=== PATIENT | female | born 1935 | race Caucasian/White ===

== ENCOUNTER → 2017-01-27 | Outpatient (CLI) | payer MEDICARE ==
[2016-04-26 14:55] VITALS: BP 145/52
[~2017-01-27] MED LIST: ALEN70TA5 PO; ASPI-482 PO; AZIT1PAC PO; CARV12.52 PO; ESCI20TA PO; ESCI5TAB24 PO; FURO-69 PO; LEVO75TA5 PO; LISI10TA2 PO; METH4TAB2 PO; PANT40TA5 PO; POTA10CA PO; POTA10TA10 PO; SIMV10TA3 PO; SIMV20TA3 PO; TIOT4MIS5 IH; VENTOLIN HFA18 GM IH
--- NOTE | 2017-01-27 13:10 | CARD ---
APPROVED REPORT EXAM: Two-dimensional and M-mode echocardiogram with Doppler and color Doppler. Other Information Quality : Good Rhythm : NSR INDICATION Chest Pain Chest pain RISK FACTORS Hypertension 2D DIMENSIONS RVDd2.6 (2.9-3.5cm)Left Atrium(2D)3.2 (1.6-4.0cm) IVSd0.9 (0.7-1.1cm)Aortic Root(2D)2.9 (2.0-3.7cm) LVDd4.6 (3.9-5.9cm)LVOT Diameter2.2 (1.8-2.4cm) PWd0.8 (0.7-1.1cm)LVDs3.0 (2.5-4.0cm) FS (%) 35.6 %SV64.6 ml LVEF(%)65.1 (>50%) Aortic Valve AoV Peak Dangelo.126.7cm/sAoV VTI33.7cm AO Peak GR.6.4mmHgLVOT Peak Dangelo.76.5cm/s AO Mean GR.4mmHgAVA (VMAX)2.20cm2 AI P 1/2 [id number] Mitral Valve MV E Nfzncfpx45.6cm/sMV E Peak Gr.2mmHg MV DECEL [id number] A Eprvexgd02.9cm/s MV E Mean Gr.1mmHgE/A Ratio0.8 MV A [id number] Pulmonary Valve PV Peak Wcklyjpb48.4cm/s Tricuspid Valve TR P. Ihvdtzuh732ox/sTR Peak Gr.30mmHg Pulmonary Vein S1 Aamyvlhu79.7cm/sD2 Ryzzjsjq89.8cm/s PVa [id number] LEFT VENTRICLE The left ventricle is normal size. There is normal left ventricular wall thickness. The left ventricu lar systolic function is normal and the ejection fraction is within normal range. The Ejection Fracti on is 60-65%. There is normal LV segmental wall motion. Transmitral Doppler flow pattern is Grade II- pseudonormal filling dynamics. RIGHT VENTRICLE The right ventricle is normal size. There is normal right ventricular wall thickness. The right ventr icular systolic function is normal. ATRIA The left atrium size is normal. The right atrium size is normal. The interatrial septum is intact wit h no evidence for an atrial septal defect or patent foramen ovale as noted on 2-D or Doppler imaging. AORTIC VALVE The aortic valve is mildly sclerotic. Doppler and Color Flow revealed mild aortic regurgitation. Ther e is no significant aortic valvular stenosis. MITRAL VALVE The mitral valve leaflets are thickened. There is no evidence of mitral valve prolapse. There is no m itral valve stenosis. Doppler and Color Flow revealed mild mitral regurgitation. TRICUSPID VALVE Doppler and Color Flow revealed mild tricuspid regurgitation. The pulmonary artery systolic pressure is estimated at 42 mmHg. There is mild pulmonary hypertension. PULMONIC VALVE Doppler and Color Flow revealed trace pulmonic valvular regurgitation. There is no pulmonic valvular stenosis. GREAT VESSELS The aortic root is normal in size. The ascending aorta is normal in size. The IVC is normal in size a nd collapses >50% with inspiration. PERICARDIAL EFFUSION There is no evidence of significant pericardial effusion. Critical Notification Critical Value: No <Conclusion> The left ventricular systolic function is normal and the ejection fraction is within normal range. Th e Ejection Fraction is 60-65%. There is normal LV segmental wall motion. Transmitral Doppler flow pattern is Grade II-pseudonormal filling dynamics. Doppler and Color Flow revealed mild aortic regurgitation. Doppler and Color Flow revealed mild tricuspid regurgitation. The pulmonary artery systolic pressure is estimated at 42 mmHg. There is mild pulmonary hypertension.
== END | disposition home or self-care (01) ==
LOC: ECHO 10:32
PROVIDERS: ATTEND Internal Medicine Cardiovascular Disease
DX: I25.10 Atherosclerotic heart disease of native coronary artery without angina pectoris (principal); R07.9 Chest pain, unspecified; I27.2 Other secondary pulmonary hypertension; I35.1 Nonrheumatic aortic (valve) insufficiency; I07.1 Rheumatic tricuspid insufficiency
CPT/HCPCS: 93306

== ENCOUNTER → 2017-04-03 | Outpatient (CLI) | payer BC ==
[2016-04-26 14:55] VITALS: BP 145/52
[~2017-04-03] MED LIST changes: -POTA10CA PO; -POTA10TA10 PO; +POTA10TA12 PO; +POTASSIUM CHLO10 MEQ PO
--- NOTE | 2017-04-03 14:15 | KCIC ---
Examination: CT chest without contrast HISTORY: History of follow-up lung nodule COMPARISON: 05/08/2016 TECHNIQUE: Axial CT images of the chest were performed without contrast. Coronal and sagittal reformats were performed. Exposure: One or more of the following individualized dose reduction techniques were utilized for this examination: 1. Automated exposure control 2. Adjustment of the mA and/or kV according to patient size 3. Use of iterative reconstruction technique FINDINGS: The central airways are patent. Diffuse coronary artery calcifications. The heart size grossly appears unremarkable. No evidence of pericardial effusion. Severe emphysematous changes identified in the lungs. 5 mm pulmonary nodule identified in the right lobe of the lung similar to prior exam. The visualized noncontrasted liver, spleen, adrenals grossly appears unremarkable. Cholecystectomy clips are identified. Mild degenerative changes thoracic spine. IMPRESSION: 1. 5 mm pulmonary nodule identified in the right middle lobe of the lung grossly similar to prior exam. 2. Severe emphysematous changes bilateral lungs. Electronically signed by: Fidel Allen MD (04/03/2017 2:12 PM)
== END | disposition home or self-care (01) ==
LOC: KCIC CT 08:12
PROVIDERS: ATTEND Internal Medicine Pulmonary Disease
DX: R91.1 Solitary pulmonary nodule (principal)
CPT/HCPCS: 71250

== ENCOUNTER → 2018-04-02 | Outpatient (CLI) | payer BC | END | disposition home or self-care (01) | LOC: CT 07:47 | DX: I25.10 Atherosclerotic heart disease of native coronary artery without angina pectoris (principal); I70.0 Atherosclerosis of aorta; R91.1 Solitary pulmonary nodule | CPT/HCPCS: 71250 ==

== ENCOUNTER 2018-05-20 18:02 | Inpatient (IN) | payer BC ==
[2018-05-20] MEDS ORDERED: ALBUTEROL SULFATE 2.5 MG/3 ML NEBU. NEB (18:45)
[2018-05-20] MEDS ORDERED: NON FORMULARY ITEM (Albuterol Sulfate (Ventolin Hfa Inhaler) 2 PUFF) IH (18:45)
[2018-05-20] MEDS ORDERED: POLYETHYLENE GLYCOL 3350 17 GM PACKET. PO (18:45)
[2018-05-20] MEDS: IPRATRPIUM/ALBUTEROL 0.5/2.5MG 3 ML NEBU. NEB (19:45)
[2018-05-20] MEDS ORDERED: DOCUSATE SODIUM 100 MG CAPSULE. PO (20:15)
[2018-05-20] MEDS ORDERED: NON FORMULARY ITEM (Tiotropium Bromide (Spiriva Respimat) 2.5 MCG) IH (21:00)
[2018-05-20] MEDS: SIMVASTATIN 20 MG TABLET PO (21:08)
[2018-05-20] MEDS: CARVEDILOL 12.5 MG TABLET. PO (21:09)
[2018-05-20] MEDS: oxyCODONE/APAP 5/325 1 TAB TABLET PO (23:52)
[2018-05-20] MEDS: ZOLPIDEM 5 MG TABLET. PO (23:52)
[2018-05-21] MEDS: PANTOPRAZOLE 40 MG TABLET.DR. PO (06:40)
[2018-05-21] MEDS: LEVOTHYROXINE 75 MCG TABLET PO (06:41)
[2018-05-21] MEDS: IPRATRPIUM/ALBUTEROL 0.5/2.5MG 3 ML NEBU. NEB ×4 (06:52→18:55)
[2018-05-21] MEDS: POLYETHYLENE GLYCOL 3350 17 GM PACKET. PO (10:19)
[2018-05-21] MEDS: FUROSEMIDE 20 MG TABLET PO (10:20)
[2018-05-21] MEDS: POTASSIUM CHLORIDE 10 MEQ TABLET.ER. PO (10:20)
[2018-05-21] MEDS: DOCUSATE SODIUM 100 MG CAPSULE. PO (10:20)
[2018-05-21] MEDS: CARVEDILOL 12.5 MG TABLET. PO ×2 (10:21→16:46)
[2018-05-21] MEDS: ASPIRIN ENTERIC COATED 81 MG TABLET.DR. PO (10:21)
[2018-05-21] MEDS: CITALOPRAM 20 MG TABLET. PO (10:21)
[2018-05-21] MEDS: LISINOPRIL 10 MG TABLET PO (10:22)
[2018-05-21] MEDS: oxyCODONE/APAP 5/325 1 TAB TABLET PO (12:00)
[2018-05-21] MEDS: MORPHINE SULFATE 2 MG/ML DISP.SYRIN. IV (12:59)
[2018-05-21] MEDS: ENOXAPARIN 40 MG/0.4 ML SYRINGE. SQ (16:47)
[2018-05-21] MEDS: SIMVASTATIN 20 MG TABLET PO (20:51)
[2018-05-22] MEDS: ACETAMINOPHEN 325 MG TABLET. PO ×3 (00:14→20:39)
[2018-05-22 05:04] LABS: ADD MAN DIFF? NO
[2018-05-22 05:11] LABS: BASO # 0.1 x10^3/uL (0.0-0.2); BASO % 1 % (0-3); EOS # 0.4 x10^3/uL (0.0-0.7); EOS % 5 % (0-3); HEMATOCRIT 31.7 % (36.0-47.0); HEMOGLOBIN 10.6 g/dL (12.0-15.5); LYMPH # 1.8 x10^3/uL (1.0-4.8); LYMPH % 21 % (24-48); MEAN CORPUSCULAR HEMOGLOBIN 31 pg (25-35); MEAN CORPUSCULAR HGB CONC 33 g/dL (31-37); MEAN CORPUSCULAR VOLUME 93 fL (79-100); MONO # 0.8 x10^3/uL (0.0-1.1); MONO % 9 % (0-9); NEUT # 5.6 x10^3uL (1.8-7.7); NEUT % 65 % (31-73); PLATELET COUNT 127 x10^3/uL (140-400); RED BLOOD COUNT 3.41 x10^6/uL (3.50-5.40); WHITE BLOOD COUNT 8.7 x10^3/uL (4.0-11.0)
[2018-05-22 05:21] LABS: ANION GAP 5 (6-14); BLOOD UREA NITROGEN 18 mg/dL (7-20); CALCIUM 8.5 mg/dL (8.5-10.1); CARBON DIOXIDE 29 mmol/L (21-32); CHLORIDE 102 mmol/L (98-107); CREATININE 1.5 mg/dL (0.6-1.0); GFR 33.2; GLUCOSE 81 mg/dL (70-99); POTASSIUM 3.9 mmol/L (3.5-5.1); SODIUM 136 mmol/L (136-145)
[2018-05-22] MEDS: LEVOTHYROXINE 75 MCG TABLET PO (05:57)
[2018-05-22] MEDS: PANTOPRAZOLE 40 MG TABLET.DR. PO (05:57)
[2018-05-22] MEDS: IPRATRPIUM/ALBUTEROL 0.5/2.5MG 3 ML NEBU. NEB ×4 (07:15→19:54)
[2018-05-22] MEDS: POTASSIUM CHLORIDE 10 MEQ TABLET.ER. PO (08:50)
[2018-05-22] MEDS: DOCUSATE SODIUM 100 MG CAPSULE. PO (08:50)
[2018-05-22] MEDS: ASPIRIN ENTERIC COATED 81 MG TABLET.DR. PO (08:50)
[2018-05-22] MEDS: CITALOPRAM 20 MG TABLET. PO (08:51)
[2018-05-22] MEDS: CARVEDILOL 12.5 MG TABLET. PO ×2 (08:52→17:00)
[2018-05-22] MEDS: FUROSEMIDE 20 MG TABLET PO (08:52)
[2018-05-22] MEDS: LISINOPRIL 10 MG TABLET PO (08:56)
[2018-05-22] MEDS: POLYETHYLENE GLYCOL 3350 17 GM PACKET. PO (08:56)
[2018-05-22] MEDS: ENOXAPARIN 30 MG/0.3 ML SYRINGE. SQ (17:56)
[2018-05-22] MEDS: IV NORMAL SALINE 1000ML BAG 1,000 ML IV (20:17)
[2018-05-22] MEDS: SIMVASTATIN 20 MG TABLET PO (20:39)
[2018-05-22] MEDS: ZOLPIDEM 5 MG TABLET. PO (20:39)
[2018-05-23] MEDS: LABETALOL 20 MG/4 ML DISP.SYRIN. IVP (03:53)
[2018-05-23] MEDS: ACETAMINOPHEN 325 MG TABLET. PO ×2 (03:53→08:34)
[2018-05-23] MEDS: PANTOPRAZOLE 40 MG TABLET.DR. PO (06:19)
[2018-05-23] MEDS: LEVOTHYROXINE 75 MCG TABLET PO (06:19)
[2018-05-23] MEDS: IPRATRPIUM/ALBUTEROL 0.5/2.5MG 3 ML NEBU. NEB ×4 (07:18→20:24)
[2018-05-23] MEDS: CARVEDILOL 12.5 MG TABLET. PO ×3 (08:00→17:19)
[2018-05-23] MEDS: POLYETHYLENE GLYCOL 3350 17 GM PACKET. PO (08:34)
[2018-05-23] MEDS: POTASSIUM CHLORIDE 10 MEQ TABLET.ER. PO (08:34)
[2018-05-23] MEDS: CITALOPRAM 20 MG TABLET. PO (08:34)
[2018-05-23] MEDS: DOCUSATE SODIUM 100 MG CAPSULE. PO (08:35)
[2018-05-23] MEDS: ASPIRIN ENTERIC COATED 81 MG TABLET.DR. PO (08:35)
[2018-05-23] MEDS: FUROSEMIDE 20 MG TABLET PO (08:35)
[2018-05-23] MEDS: LISINOPRIL 10 MG TABLET PO ×2 (08:36→09:00)
[2018-05-23] MEDS: amLODIPine BESYLATE 5 MG TABLET PO ×2 (09:30→10:00)
[2018-05-23] MEDS: ONDANSETRON PF 4 MG/2 ML VIAL. IV (11:00)
[2018-05-23] MEDS: MORPHINE SULFATE 2 MG/ML DISP.SYRIN. IV (11:00)
[2018-05-23] MEDS: IV NORMAL SALINE 1000ML BAG 1,000 ML IV (12:33)
[2018-05-23] MEDS: ENOXAPARIN 30 MG/0.3 ML SYRINGE. SQ (16:33)
[2018-05-23] MEDS: SIMVASTATIN 20 MG TABLET PO (22:29)
[2018-05-23] MEDS: ZOLPIDEM 5 MG TABLET. PO (22:29)
[2018-05-23] MEDS: oxyCODONE/APAP 5/325 1 TAB TABLET PO (22:30)
[2018-05-24 03:54] LABS: ANION GAP 1 (6-14); BLOOD UREA NITROGEN 15 mg/dL (7-20); CALCIUM 7.6 mg/dL (8.5-10.1); CARBON DIOXIDE 33 mmol/L (21-32); CHLORIDE 101 mmol/L (98-107); CREATININE 1.1 mg/dL (0.6-1.0); GFR 47.6; GLUCOSE 79 mg/dL (70-99); POTASSIUM 3.7 mmol/L (3.5-5.1); SODIUM 135 mmol/L (136-145)
[2018-05-24] MEDS: PANTOPRAZOLE 40 MG TABLET.DR. PO (06:15)
[2018-05-24] MEDS: ACETAMINOPHEN 325 MG TABLET. PO ×2 (06:16→22:57)
[2018-05-24] MEDS: LEVOTHYROXINE 75 MCG TABLET PO (06:16)
[2018-05-24] MEDS: IPRATRPIUM/ALBUTEROL 0.5/2.5MG 3 ML NEBU. NEB ×4 (07:09→19:03)
[2018-05-24] MEDS: CITALOPRAM 20 MG TABLET. PO (08:47)
[2018-05-24] MEDS: amLODIPine BESYLATE 5 MG TABLET PO (08:48)
[2018-05-24] MEDS: DOCUSATE SODIUM 100 MG CAPSULE. PO (08:48)
[2018-05-24] MEDS: POTASSIUM CHLORIDE 10 MEQ TABLET.ER. PO (08:48)
[2018-05-24] MEDS: ASPIRIN ENTERIC COATED 81 MG TABLET.DR. PO (08:48)
[2018-05-24] MEDS: POLYETHYLENE GLYCOL 3350 17 GM PACKET. PO (08:49)
[2018-05-24] MEDS: LISINOPRIL 10 MG TABLET PO (08:49)
[2018-05-24] MEDS: CARVEDILOL 12.5 MG TABLET. PO ×2 (08:50→17:00)
[2018-05-24] MEDS: FUROSEMIDE 20 MG TABLET PO (08:55)
[2018-05-24] MEDS: ENOXAPARIN 30 MG/0.3 ML SYRINGE. SQ (17:15)
[2018-05-24] MEDS: SIMVASTATIN 20 MG TABLET PO (20:21)
[2018-05-24] MEDS: diphenhydrAMINE HCL 25 MG CAPSULE PO (22:57)
[2018-05-25] MEDS: PANTOPRAZOLE 40 MG TABLET.DR. PO (06:43)
[2018-05-25] MEDS: LEVOTHYROXINE 75 MCG TABLET PO (06:43)
[2018-05-25] MEDS: IPRATRPIUM/ALBUTEROL 0.5/2.5MG 3 ML NEBU. NEB (07:42)
[2018-05-25] MEDS: DOCUSATE SODIUM 100 MG CAPSULE. PO (08:43)
[2018-05-25] MEDS: ASPIRIN ENTERIC COATED 81 MG TABLET.DR. PO (08:43)
[2018-05-25] MEDS: CITALOPRAM 20 MG TABLET. PO (08:43)
[2018-05-25] MEDS: POTASSIUM CHLORIDE 10 MEQ TABLET.ER. PO (08:43)
[2018-05-25] MEDS: POLYETHYLENE GLYCOL 3350 17 GM PACKET. PO (08:43)
[2018-05-25] MEDS: LISINOPRIL 10 MG TABLET PO (08:44)
[2018-05-25] MEDS: amLODIPine BESYLATE 5 MG TABLET PO (08:44)
[2018-05-25] MEDS: FUROSEMIDE 20 MG TABLET PO (08:44)
[2018-05-25] MEDS: CARVEDILOL 12.5 MG TABLET. PO (08:44)
== END 2018-05-25 11:00 | DRG 562 ==
LOC: 4 NORTH 18:02
DX: S52.502A Unspecified fracture of the lower end of left radius, initial encounter for closed fracture (principal); J96.00 Acute respiratory failure, unspecified whether with hypoxia or hypercapnia; S32.9XXA Fracture of unspecified parts of lumbosacral spine and pelvis, initial encounter for closed fracture; N17.9 Acute kidney failure, unspecified; I25.10 Atherosclerotic heart disease of native coronary artery without angina pectoris; I11.0 Hypertensive heart disease with heart failure; I50.9 Heart failure, unspecified; E78.5 Hyperlipidemia, unspecified; J44.9 Chronic obstructive pulmonary disease, unspecified; F32.9 Major depressive disorder, single episode, unspecified; Z96.649 Presence of unspecified artificial hip joint; K21.9 Gastro-esophageal reflux disease without esophagitis; F41.9 Anxiety disorder, unspecified; G47.00 Insomnia, unspecified; W01.0XXA Fall on same level from slipping, tripping and stumbling without subsequent striking against object, initial encounter; E03.9 Hypothyroidism, unspecified; G62.9 Polyneuropathy, unspecified; M17.0 Bilateral primary osteoarthritis of knee; M50.30 Other cervical disc degeneration, unspecified cervical region; M48.02 Spinal stenosis, cervical region; M47.812 Spondylosis without myelopathy or radiculopathy, cervical region; Z90.49 Acquired absence of other specified parts of digestive tract; Z88.2 Allergy status to sulfonamides; Z79.02 Long term (current) use of antithrombotics/antiplatelets; Y99.8 Other external cause status; Y93.89 Activity, other specified; Y92.098 Other place in other non-institutional residence as the place of occurrence of the external cause; Z86.73 Personal history of transient ischemic attack (TIA), and cerebral infarction without residual deficits; Z79.899 Other long term (current) drug therapy; Z86.19 Personal history of other infectious and parasitic diseases
CPT/HCPCS: 36415; 80048; 82306; 85025; 94640; 94760; 97110-GP; 97116-GP; 97162-GP; 97166-GO; 97530-GO; 97535-GO; J1650; J2270; J2405; J3490; J7030; J7620; Q0163

== ENCOUNTER 2018-12-04 19:23 | Inpatient (IN) | payer BC ==
[~2018-12-04] VITALS: Ht 160 cm; Wt 60.4 kg
[~2018-12-04 19:23] MED LIST changes: -ALEN70TA5 PO; +ALEN70TA6 PO; +AMLO5TAB10 PO; +ASPI325T11 PO; +CARV12.511 PO; -CARV12.52 PO; +CLOP75TA PO; +DOXY100T PO; -ESCI20TA PO; -ESCI5TAB24 PO; +ESCITALOPRAM OX20 MG PO; +ESCITALOPRAM OXA5 MG PO; +IPRA3AMP29 NEB; +LEVO88TA4 PO; +OXYC1TAB7 PO; -POTASSIUM CHLO10 MEQ PO; +RANI300T PO
[2018-12-04] MEDS ORDERED: fentaNYL PF VIAL 100 MCG/2 ML VIAL IV ONE (20:45)
[2018-12-04 20:49] LABS: BILIRUBIN,URINE NEGATIVE (NEG); CLARITY,URINE CLEAR; COLOR,URINE YELLOW; NITRITE,URINE NEGATIVE (NEG); PROTEIN,URINE NEGATIVE (NEG-TRACE); UROBILINOGEN,URINE 0.2 mg/dL (0.2 mg/dL)
[2018-12-04 21:08] LABS: BACTERIA,URINE MODERATE /HPF (0-FEW); HYALINE CASTS, URINE FEW /HPF; SQUAMOUS EPITHELIAL CELL,UR MOD /LPF
[2018-12-04] MEDS ORDERED: MORPHINE SULFATE 10 MG/ML VIAL. IV ONE (22:30)
--- NOTE | 2018-12-04 22:32 | RAD ---
CT LUMBAR SPINE WO CONTRAST Indication: Pain after a fall Exposure: One or more of the following individualized dose reduction techniques were utilized for this examination: 1. Automated exposure control 2. Adjustment of the mA and/or kV according to patient size 3. Use of iterative reconstruction technique. Comparison: None are available. Contrast: None Visualized lung bases demonstrates severe emphysematous changes. The visualized aorta is calcified and ectatic. There is a mild superior endplate compression fracture of L1, appearance is compatible with acute etiology. There is posterior retropulsion of the posterosuperior corner of L1, resulting in mild spinal canal impingement particularly on the left. No other acute fracture is seen. There is degenerative spondylosis with disc bulging and facet joint degenerative change and ligamentum flavum hypertrophy, greatest at L4-L5 where there is moderate spinal stenosis. There is also neural foraminal narrowing. Degenerative changes at the sacroiliac joints. There is patchy lucency and sclerosis at the right and left sacral ala suspicious for stress fractures. IMPRESSION: 1. Acute appearing superior endplate compression fracture of L1. Mild retropulsion results in mild spinal canal narrowing. 2. Patchy sclerosis and lucency of the right and left sacral ala, suspicious for stress fractures. 3. Degenerative spondylosis with stenosis greatest at L4-L5. Electronically signed by: Juno Swartz MD (12/04/2018 10:27 PM) [facility]
--- NOTE | 2018-12-05 00:51 | PHYS DOC ---
Past Medical History Past Medical History: CHF, COPD, High Cholesterol, Hypertension Past Surgical History: Appendectomy, Cholecystectomy, Tonsillectomy Additional Past Surgical Histo: W/ STENT PLACEMENT, STENT IN LEG,ORIF R FEMUR; L wrist Alcohol Use: Rarely Drug Use: None Adult General Chief Complaint Chief Complaint: MECHANICAL FALL HPI HPI Patient is a 83 year old female with history of hypertension, high cholesterol , COPD, on oxygen 2 L chronically, who presents to the ED today complaining of 7 out of 10 constant bilateral low back pain that began a couple minutes prior to coming to the ED. Patient states she believes she tripped on her oxygen tubing and fell landing on her buttocks. Denies any loss of consciousness. Denies any chance she hit her head on the ground. Denies any neck pain. She states most of her pain is on Certain movements. Patient denies any pain radiating to bilateral lower extremities. Review of Systems Review of Systems Constitutional: Denies fever or chills [] Eyes: Denies change in visual acuity, redness, or eye pain [] HENT: Denies nasal congestion or sore throat [] Respiratory: Denies cough or shortness of breath [] Cardiovascular: No additional information not addressed in HPI [] GI: Denies abdominal pain, nausea, vomiting, bloody stools or diarrhea [] : Denies dysuria or hematuria [] Musculoskeletal: Reports low back pain Integument: Denies rash or skin lesions [] Neurologic: Denies headache, focal weakness or sensory changes [] All other systems were reviewed and found to be within normal limits, except as documented in this note. Current Medications Current Medications Current Medications Medications (Trade) Dose Ordered Sig/Katy Start Time Stop Time Status Last Admin Dose Admin Fentanyl Citrate (Fentanyl 2ml Vial) 50 mcg 1X ONCE 12/04/18 20:45 12/04/18 20:46 DC 12/04/18 21:01 50 MCG Morphine Sulfate (Morphine Sulfate) 5 mg 1X ONCE 12/04/18 22:30 12/04/18 22:31 DC 12/04/18 22:49 5 MG Allergies Allergies Allergies Coded Allergies Type Severity Reaction Last Updated Verified Sulfa (Sulfonamide Antibiotics) Allergy Intermediate 01/17/16 Yes sulfur Allergy Intermediate Eyes swell 04/16/18 Yes Physical Exam Physical Exam Constitutional: Well developed, well nourished, no acute distress, non-toxic appearance. [] HENT: Normocephalic, atraumatic, bilateral external ears normal, oropharynx moist, no oral exudates, nose normal. [] Eyes: PERRLA, EOMI, conjunctiva normal, no discharge. [] Neck: Normal range of motion, no tenderness, supple, no stridor. [] Cardiovascular:Heart rate regular rhythm, no murmur [] Lungs & Thorax: Bilateral breath sounds clear to auscultation [] Abdomen: Bowel sounds normal, soft, no tenderness, no masses, no pulsatile masses. [] Skin: Warm, dry, no erythema, no rash. [] Back: Diffuse paraspinal muscle tenderness to bilateral lumbar spine as well as mild midline lumbar spine tenderness, no CVA tenderness. Negative bilateral straight leg raises Extremities: No tenderness, no cyanosis, no clubbing, ROM intact, no edema. [] Neurologic: Alert and oriented X 3, normal motor function, normal sensory function, no focal deficits noted. [] Psychologic: Affect normal, judgement normal, mood normal. [] Current Patient Data Vital Signs Vital Signs Date Time Temp Pulse Resp B/P (MAP) Pulse Ox O2 Delivery O2 Flow Rate FiO2 12/04/18 23:30 71 20 96 12/04/18 22:49 Room Air 12/04/18 21:01 2.5 12/04/18 19:23 98.4 138/56 (83) 98.4 Lab Values Laboratory Tests Test 12/04/18 20:30 Urine Collection Type Unknown Urine Color Yellow Urine Clarity Clear Urine pH 7.0 Urine Specific [place] 1.010 Urine Protein Negative mg/dL (NEG-TRACE) Urine Glucose (UA) Negative mg/dL (NEG) Urine Ketones (Stick) Negative mg/dL (NEG) Urine Blood Small (NEG) Urine Nitrite Negative (NEG) Urine Bilirubin Negative (NEG) Urine Urobilinogen Dipstick 0.2 mg/dL (0.2 mg/dL) Urine Leukocyte Esterase Trace (NEG) Urine RBC 11-20 /HPF (0-2) Urine WBC 5-10 /HPF (0-4) Urine Squamous Epithelial Cells Mod /LPF Urine Bacteria Moderate /HPF (0-FEW) Urine Hyaline Casts Few /HPF EKG EKG [] Radiology/Procedures Radiology/Procedures []PROCEDURE: CT LUMBAR SPINE WO CONTRAST CT LUMBAR SPINE WO CONTRAST Indication: Pain after a fall Exposure: One or more of the following individualized dose reduction techniques were utilized for this examination: 1. Automated exposure control 2. Adjustment of the mA and/or kV according to patient size 3. Use of iterative reconstruction technique. Comparison: None are available. Contrast: None Visualized lung bases demonstrates severe emphysematous changes. The visualized aorta is calcified and ectatic. There is a mild superior endplate compression fracture of L1, appearance is compatible with acute etiology. There is posterior retropulsion of the posterosuperior corner of L1, resulting in mild spinal canal impingement particularly on the left. No other acute fracture is seen. There is degenerative spondylosis with disc bulging and facet joint degenerative change and ligamentum flavum hypertrophy, greatest at L4-L5 where there is moderate spinal stenosis. There is also neural foraminal narrowing. Degenerative changes at the sacroiliac joints. There is patchy lucency and sclerosis at the right and left sacral ala suspicious for stress fractures. IMPRESSION: 1. Acute appearing superior endplate compression fracture of L1. Mild retropulsion results in mild spinal canal narrowing. 2. Patchy sclerosis and lucency of the right and left sacral ala, suspicious for stress fractures. 3. Degenerative spondylosis with stenosis greatest at L4-L5. Electronically signed by: Juno Swartz MD (12/04/2018 10:27 PM) [facility] DICTATED and SIGNED BY: JUNO SWARTZ MD DATE: 12/04/182221 Course & Med Decision Making Course & Med Decision Making Pertinent Labs and Imaging studies reviewed. (See chart for details) This is a 83-year-old. Patient presenting to the ED today status post falling. Lumbar spine CT is noted for L1 compression fracture, patient has received several doses of pain medications in the ED and has continued to complain of pain. Spoke to Anyi AWAD for neurosurgery the wound follow-up with patient in a.m. Patient admitted under -report to given in AM by Dr. Nasir Lund Disclaimer Kevon Disclaimer This electronic medical record was generated, in whole or in part, using a voice recognition dictation system. Departure Departure Impression: Primary Impression: Fracture of L1 vertebra Additional Impressions: Fall Intractable back pain Disposition: ADMITTED INPATIENT Condition: STABLE Referrals: MAGY COTO MD (PCP) Problem Qualifiers Primary Impression: Fracture of L1 vertebra Encounter type: initial encounter Fracture type: closed Fracture morphology : unspecified fracture morphology Qualified Codes: S32.019A - Unspecified fracture of first lumbar vertebra, initial encounter for closed fracture Additional Impressions: Fall Encounter type: initial encounter Qualified Codes: W19.XXXA - Unspecified fall, initial encounter KEVIN ALMONTE APRN Dec 05, 2018 00:51
[2018-12-05 02:30] VITALS: BP 171/79
[2018-12-05] MEDS ORDERED: ACETAMINOPHEN 325 MG TABLET. PO PRN (03:00)
[2018-12-05] MEDS: MORPHINE SULFATE 4 MG/ML VIAL. IV PRN ×2 (03:10→08:24)
[2018-12-05 07:00] VITALS: BP 152/74
[2018-12-05] MEDS ORDERED: POLYMYXIN/TRIMETHOPRIM OPHTH SOLUTION 10ML BOTTLE. OU SCH (09:00)
[2018-12-05] MEDS ORDERED: FLUT1BLS3 IH (10:30)
[2018-12-05] MEDS ORDERED: POTA10TA12 PO (10:30)
[2018-12-05] MEDS ORDERED: ALBU2.5V8 INH (10:30)
[2018-12-05] MEDS ORDERED: FURO-69 PO (10:30)
--- NOTE | 2018-12-05 10:42 | PDOC1 ---
History and Physical Date of Admission Date of Admission DATE: 12/05/18 TIME: 10:40 Identification/Chief Complaint Chief Complaint SEEN IN ER THIS AM presented to the ED today complaining of 7 out of 10 constant-INTRACTABLE bilateral low back pain . Patient states she believes she tripped on her oxygen tubing and fell landing on her buttocks. NO loss of consciousness. Denies any chance she hit her head on the ground. Denies any neck pain. She states most of her pain is on Certain movements. Patient denies any pain radiating to bilateral lower extremities. Past Medical History Past Medical History Past Medical History Past Medical History Past Medical History: CHF, COPD, High Cholesterol, Hypertension Past Surgical History: Appendectomy, Cholecystectomy, Tonsillectomy Additional Past Surgical Histo: W/ STENT PLACEMENT, STENT IN LEG,ORIF R FEMUR; L wrist Alcohol Use: Rarely Drug Use: None FAMILY HX HTN Cardiovascular: CAD, CHF, HTN, Hyperlipidemia, Other Pulmonary: COPD CENTRAL NERVOUS SYSTEM: Other GI: No pertinent hx Heme/Onc: No pertinent hx Hepatobiliary: Hep A/B/C Psych: Depression Musculoskeletal: Osteoarthritis Rheumatologic: No pertinent hx Infectious disease: No pertinent hx Renal/: No pertinent hx Endocrine: Hyperthyroidism Past Surgical History Past Surgical History: Appendectomy, Cholecystectomy, Total hip replacement, Other Family History Family History: Other Social History ALCOHOL: none Drugs: None Current Problem List Problem List Problems Medical Problems: (1) Intractable back pain Status: Acute Current Medications Current Medications Current Medications Fentanyl Citrate (Fentanyl 2ml Vial) 50 mcg 1X ONCE IV Last administered on 12/04/18at 21:01; Start 12/04/18 at 20:45; Stop 12/04/18 at 20:46; Status DC Morphine Sulfate (Morphine Sulfate) 5 mg 1X ONCE IV Last administered on at 22:49; Start 12/04/18 at 22:30; Stop 12/04/18 at 22:31; Status DC Ondansetron HCl (Zofran) 4 mg PRN Q8HRS PRN IV NAUSEA/VOMITING; Start 12/05/18 at 03:00; Stop 12/06/18 at 02:59 Morphine Sulfate (Morphine Sulfate) 2 mg PRN Q2HR PRN IV PAIN Last administered on 12/05/18at 08:24; Start 12/05/18 at 03:00; Stop 12/06/18 at 02:59 Acetaminophen (Tylenol) 650 mg PRN Q4HRS PRN PO FEVER; Start 12/05/18 at 03:00 ; Stop 12/06/18 at 02:59 Polymyxin/ Trimethoprim Sulfate (Polytrim) 2 drop TID OU ; Start 12/05/18 at 09: 00 Active Scripts Active Amlodipine Besylate 5 Mg Tablet 5 Mg PO DAILY 30 Days Reported Proair Hfa (Albuterol Sulfate) 8.5 Gm Hfa.aer.ad 1 Puff INH PRN Q6HRS PRN Trelegy Ellipta 100-62.5-25 (Fluticasone/Umeclidin/Vilanter) 1 Each Blst.w.dev 1 Each IH PRN PRN Potassium Chloride 10 Meq Tab.sr.24h 10 Meq PO DAILY Lasix (Furosemide) 20 Mg Tablet 1 Tab PO DAILY Levothyroxine Sodium 88 Mcg Tablet 1 Tab PO DAILY Ranitidine Hcl 300 Mg Tablet 300 Mg PO DAILY Aspir 81 (Aspirin) 81 Mg Tablet.dr 1 Tab PO DAILY Escitalopram Oxalate 20 Mg Tablet 1 Tab PO DAILY Simvastatin 20 Mg Tablet 1 Tab PO QHS Carvedilol (Carvedilol) 12.5 Mg Tablet 1 Tab PO BID Lisinopril 10 Mg Tablet 1 Tab PO DAILY Allergies Allergies: Coded Allergies: Sulfa (Sulfonamide Antibiotics) (Verified Allergy, Intermediate, 01/17/16) sulfur (Verified Allergy, Intermediate, Eyes swell, 04/16/18) ROS Review of System Review of Systems Review of Systems Constitutional: Denies fever or chills [] Eyes: Denies change in visual acuity, redness, or eye pain [] HENT: Denies nasal congestion or sore throat [] Respiratory: Denies cough or shortness of breath [] Cardiovascular: No additional information not addressed in HPI [] GI: Denies abdominal pain, nausea, vomiting, bloody stools or diarrhea [] : Denies dysuria or hematuria [] Musculoskeletal: Reports low back pain Integument: Denies rash or skin lesions [] Neurologic: Denies headache, focal weakness or sensory changes [] 14 PT systems were reviewed and found to be within normal limits, except as documented Physical Exam Physical Exam Physical Exam Physical Exam Constitutional: Well developed, well nourished, MILD acute distress, non-toxic appearance. [] HENT: Normocephalic, atraumatic, bilateral external ears normal, oropharynx moist, no oral exudates, nose normal. [] Eyes: PERRLA, EOMI, conjunctiva normal, no discharge. [] Neck: Normal range of motion, no tenderness, supple, no stridor. [] Cardiovascular:Heart rate regular rhythm, no murmur [] Lungs & Thorax: Bilateral breath sounds clear to auscultation [] Abdomen: Bowel sounds normal, soft, no tenderness, no masses, no pulsatile masses. [] Skin: Warm, dry, no erythema, no rash. [] Back: Diffuse paraspinal muscle tenderness to bilateral lumbar spine as well as mild midline lumbar spine tenderness, no CVA tenderness. Negative bilateral straight leg raises Extremities: No tenderness, no cyanosis, no clubbing, ROM intact, no edema. [] Neurologic: Alert and oriented X 3, normal motor function, normal sensory function, no focal deficits noted. [] Psychologic: Affect normal, judgement normal, mood normal. [] General: Oriented X3, Cooperative, mild distress HEENT: Atraumatic, PERRLA, EOMI Breasts: Not examined Abdomen: Soft Rectal Exam: not examined PELVIC: Examination not indicated Extremities: No cyanosis Neuro: Normal speech, Cranial nerves 3-12 NL Psych/Mental Status: Mood NL Vitals Vitals Vital Signs Date Time Temp Pulse Resp B/P (MAP) Pulse Ox O2 Delivery O2 Flow Rate FiO2 12/05/18 09:00 Nasal Cannula 2.5 12/05/18 07:00 99.1 83 18 152/74 (100) 95 99.1 Labs Labs Laboratory Tests Test 12/04/18 20:30 Urine Collection Type Unknown Urine Color Yellow Urine Clarity Clear Urine pH 7.0 Urine Specific [place] 1.010 Urine Protein Negative mg/dL (NEG-TRACE) Urine Glucose (UA) Negative mg/dL (NEG) Urine Ketones (Stick) Negative mg/dL (NEG) Urine Blood Small (NEG) Urine Nitrite Negative (NEG) Urine Bilirubin Negative (NEG) Urine Urobilinogen Dipstick 0.2 mg/dL (0.2 mg/dL) Urine Leukocyte Esterase Trace (NEG) Urine RBC 11-20 /HPF (0-2) Urine WBC 5-10 /HPF (0-4) Urine Squamous Epithelial Cells Mod /LPF Urine Bacteria Moderate /HPF (0-FEW) Urine Hyaline Casts Few /HPF Laboratory Tests Test 12/04/18 20:30 Urine Collection Type Unknown Urine Color Yellow Urine Clarity Clear Urine pH 7.0 Urine Specific [place] 1.010 Urine Protein Negative mg/dL (NEG-TRACE) Urine Glucose (UA) Negative mg/dL (NEG) Urine Ketones (Stick) Negative mg/dL (NEG) Urine Blood Small (NEG) Urine Nitrite Negative (NEG) Urine Bilirubin Negative (NEG) Urine Urobilinogen Dipstick 0.2 mg/dL (0.2 mg/dL) Urine Leukocyte Esterase Trace (NEG) Urine RBC 11-20 /HPF (0-2) Urine WBC 5-10 /HPF (0-4) Urine Squamous Epithelial Cells Mod /LPF Urine Bacteria Moderate /HPF (0-FEW) Urine Hyaline Casts Few /HPF Images Images STATUS: REG ER ORD. PHYSICIAN: KEVIN ALMONTE APRN REASON: pain, FALL PROCEDURE: CT LUMBAR SPINE WO CONTRAST CT LUMBAR SPINE WO CONTRAST Indication: Pain after a fall Exposure: One or more of the following individualized dose reduction techniques were utilized for this examination: 1. Automated exposure control 2. Adjustment of the mA and/or kV according to patient size 3. Use of iterative reconstruction technique. Comparison: None are available. Contrast: None Visualized lung bases demonstrates severe emphysematous changes. The visualized aorta is calcified and ectatic. There is a mild superior endplate compression fracture of L1, appearance is compatible with acute etiology. There is posterior retropulsion of the posterosuperior corner of L1, resulting in mild spinal canal impingement particularly on the left. No other acute fracture is seen. There is degenerative spondylosis with disc bulging and facet joint degenerative change and ligamentum flavum hypertrophy, greatest at L4-L5 where there is moderate spinal stenosis. There is also neural foraminal narrowing. Degenerative changes at the sacroiliac joints. There is patchy lucency and sclerosis at the right and left sacral ala suspicious for stress fractures. IMPRESSION: 1. Acute appearing superior endplate compression fracture of L1. Mild retropulsion results in mild spinal canal narrowing. 2. Patchy sclerosis and lucency of the right and left sacral ala, suspicious for stress fractures. 3. Degenerative spondylosis with stenosis greatest at L4-L5. Electronically signed by: Juno Swartz MD (12/04/2018 10:27 PM) [facility] VTE Prophylaxis Ordered VTE Prophylaxis Devices: No VTE Pharmacological Prophylaxi: No Assessment/Plan Assessment/Plan IMPRESSION: 1. Acute superior endplate compression fracture of L1. Mild retropulsion results in mild spinal canal narrowing. 2. Patchy sclerosis and lucency of the right and left sacral ala, suspicious for stress fractures. 3. Degenerative spondylosis with stenosis greatest at L4-L5. 4-CAD, on plavix, 5-GERD 6- depression or anxiety, w/ insomnia, PLAN Consult Dr Soriano consult IR possible vertebroplasty CONSULT Neurosurgery mri l/s t/s home meds dvt prophylaxis IRAIS GUSTAFSON MD Dec 05, 2018 10:42
[2018-12-05 11:00] VITALS: BP 172/80
--- NOTE | 2018-12-05 11:21 | PDOC ---
Provider Note Provider Note Patient seen and examined CT with L1 compression fracture neuro intact Lumbar MRI tomorrow Dr. Soriano consulted LSO ordered full consult to follow LUBA EDWARDS MD Dec 05, 2018 11:21
[2018-12-05] MEDS: ONDANSETRON PF 4 MG/2 ML VIAL. IV PRN ×2 (12:18→21:28)
[2018-12-05] MEDS ORDERED: ALBUTEROL SULFATE 2.5 MG/3 ML NEBU. INH PRN (12:30)
[2018-12-05] MEDS ORDERED: NON FORMULARY ITEM (Fluticasone/Umeclidin/Vilanter (Trelegy Ellipta 100-62.5-25) 1 EACH) IH PRN (12:30)
[2018-12-05] MEDS: FUROSEMIDE 20 MG TABLET PO SCH (13:00)
[2018-12-05 15:00] VITALS: BP 156/75
[2018-12-05] MEDS: CITALOPRAM 20 MG TABLET. PO SCH (15:43)
[2018-12-05] MEDS: LISINOPRIL 10 MG TABLET PO SCH (15:44)
[2018-12-05] MEDS: POTASSIUM CHLORIDE 10 MEQ TABLET.ER. PO SCH (15:44)
[2018-12-05] MEDS: LEVOTHYROXINE 88 MCG TABLET PO SCH (15:45)
[2018-12-05] MEDS: ASPIRIN ENTERIC COATED 81 MG TABLET.DR. PO SCH (15:45)
[2018-12-05] MEDS: amLODIPine BESYLATE 5 MG TABLET PO SCH (15:45)
--- NOTE | 2018-12-05 16:00 | NUR ---
This nurse informed MD about patient having N/V times 3, and color:bile yellow, and smells like BM. Orders received, this nurse will continue to monitor.
[2018-12-05] MEDS ORDERED: PROCHLORPERAZINE 25 MG SUPP.RECT. PR PRN (16:30)
[2018-12-05] MEDS: CARVEDILOL 12.5 MG TABLET. PO SCH (16:35)
--- NOTE | 2018-12-05 18:51 | RAD ---
AP abdomen 12/05/2018. Reason for exam: Nausea and vomiting. Gas is seen mostly in the colon. There is no evidence of obstruction. No abnormal masses or gas collections are shown. A left iliac stent is visible. IMPRESSION: Nonobstructive gas pattern. Electronically signed by: Denzel Guallpa Jr., MD (12/05/2018 6:46 PM) [facility]
[2018-12-05 19:15] VITALS: BP 175/84
--- NOTE | 2018-12-05 19:23 | NUR ---
This nurse called Froy, son to update on POC. Discussed n/v x3, orders, and plan for tomorrow. Froy stated, "don't give her any ice cream unless she takes a medication to help with it." Report off to RINKU Farris. This nurse called Olamide, daughter at [phone] for update as well.
[2018-12-05] MEDS: SIMVASTATIN 20 MG TABLET PO SCH (21:00)
[2018-12-05] MEDS: FAMOTIDINE 20 MG TABLET. PO SCH (21:00)
[2018-12-05 23:30] VITALS: BP 177/88
[2018-12-06 03:00] VITALS: BP 168/82
[2018-12-06 04:16] LABS: BASO % 0 % (0-3); EOS % 0 % (0-3); HEMATOCRIT 37.3 % (36.0-47.0); HEMOGLOBIN 12.2 g/dL (12.0-15.5); LYMPH # 0.7 x10^3/uL (1.0-4.8); LYMPH % 7 % (24-48); MEAN CORPUSCULAR HEMOGLOBIN 30 pg (25-35); MEAN CORPUSCULAR HGB CONC 33 g/dL (31-37); MEAN CORPUSCULAR VOLUME 93 fL (79-100); MONO # 0.5 x10^3/uL (0.0-1.1); MONO % 5 % (0-9); NEUT # 8.7 x10^3uL (1.8-7.7); NEUT % 88 % (31-73); PLATELET COUNT 160 x10^3/uL (140-400); RED CELL DISTRIBUTION WIDTH 14.8 % (11.5-14.5); WHITE BLOOD COUNT 9.9 x10^3/uL (4.0-11.0)
[2018-12-06 04:40] LABS: CALCIUM 9.3 mg/dL (8.5-10.1); POTASSIUM 3.8 mmol/L (3.5-5.1)
[2018-12-06 07:00] VITALS: BP 162/57
[2018-12-06 07:01] LABS: % BANDS 3 % (0-9); % LYMPHS 7 % (24-48); % MONOS 3 % (0-10); % SEGS 87 % (35-66); PLT ESTIMATE ADEQUATE (ADEQUATE)
--- NOTE | 2018-12-06 07:33 | NUR ---
Chart review done. Pt admitted w/ L1 compression fracture. Notes indicate mild weakness and unsteadiness. LSO has been ordered. Recommend PT/OT Eval and Treat. Addendum: 12/06/18 at 0733 by FE OCONNELL OT Amended: Links added.
[2018-12-06] MEDS: LEVOTHYROXINE 88 MCG TABLET PO SCH (07:42)
[2018-12-06] MEDS: CITALOPRAM 20 MG TABLET. PO SCH (08:22)
[2018-12-06] MEDS: ACETAMINOPHEN 325 MG TABLET. PO PRN (08:23)
[2018-12-06] MEDS: ASPIRIN ENTERIC COATED 81 MG TABLET.DR. PO SCH (08:24)
[2018-12-06] MEDS: LISINOPRIL 10 MG TABLET PO SCH (08:24)
[2018-12-06] MEDS: FUROSEMIDE 20 MG TABLET PO SCH (08:25)
[2018-12-06] MEDS: POTASSIUM CHLORIDE 10 MEQ TABLET.ER. PO SCH (08:25)
[2018-12-06] MEDS: amLODIPine BESYLATE 5 MG TABLET PO SCH (08:26)
[2018-12-06] MEDS: CARVEDILOL 12.5 MG TABLET. PO SCH ×2 (08:27→17:22)
--- NOTE | 2018-12-06 09:41 | PDOC ---
PROGRESS NOTES History of Present Illness History of Present Illness VTE Prophylaxis Ordered VTE Prophylaxis Devices: No VTE Pharmacological Prophylaxi: No Assessment/Plan Assessment/Plan IMPRESSION: 1. Acute superior endplate compression fracture of L1. Mild retropulsion results in mild spinal canal narrowing. 2. Patchy sclerosis and lucency of the right and left sacral ala, suspicious for stress fractures. 3. Degenerative spondylosis with stenosis greatest at L4-L5. 4-CAD, on plavix, 5-GERD 6- depression or anxiety, w/ insomnia, 7. N/V 12/05 KUB NONOBSTRUCTIVE BOWEL PATTERN PLAN Consult Dr Soriano consult IR , vertebroplasty CONSULT Neurosurgery mri l/s t/s TODAY home meds dvt prophylaxis Vitals Vitals Vital Signs Date Time Temp Pulse Resp B/P (MAP) Pulse Ox O2 Delivery O2 Flow Rate FiO2 12/06/18 08:27 90 168/82 12/06/18 07:00 98.5 16 95 Nasal Cannula 2.0 98.5 Physical Exam General: Alert, Oriented X3, Cooperative, mild distress Heart: Regular rate Lungs: Clear Abdomen: Normal bowel sounds, Soft, No tenderness, No hepatosplenomegaly Extremities: No cyanosis, No edema Labs LABS STATUS: ADM IN ORD. PHYSICIAN: IRAIS GUSTAFSON MD REASON: N/V PROCEDURE: KUB AP abdomen 12/05/2018. Reason for exam: Nausea and vomiting. Gas is seen mostly in the colon. There is no evidence of obstruction. No abnormal masses or gas collections are shown. A left iliac stent is visible. IMPRESSION: Nonobstructive gas pattern. Electronically signed by: Jaswant Dominique Jr., MD (12/05/2018 6:46 PM) [facility] [place] DICTATED and SIGNED BY: JASWANT DOMINIQUE Jr, MD DATE: 12/05/18 1846 Laboratory Tests Test 12/06/18 03:15 12/06/18 03:25 White Blood Count 9.9 x10^3/uL (4.0-11.0) Red Blood Count 4.00 x10^6/uL (3.50-5.40) Hemoglobin 12.2 g/dL (12.0-15.5) Hematocrit 37.3 % (36.0-47.0) Mean Corpuscular Volume 93 fL (79-100) Mean Corpuscular Hemoglobin 30 pg (25-35) Mean Corpuscular Hemoglobin Concent 33 g/dL (31-37) Red Cell Distribution Width 14.8 % (11.5-14.5) Platelet Count 160 x10^3/uL (140-400) Neutrophils (%) (Auto) 88 % (31-73) Lymphocytes (%) (Auto) 7 % (24-48) Monocytes (%) (Auto) 5 % (0-9) Eosinophils (%) (Auto) 0 % (0-3) Basophils (%) (Auto) 0 % (0-3) Neutrophils # (Auto) 8.7 x10^3uL (1.8-7.7) Lymphocytes # (Auto) 0.7 x10^3/uL (1.0-4.8) Monocytes # (Auto) 0.5 x10^3/uL (0.0-1.1) Eosinophils # (Auto) 0.0 x10^3/uL (0.0-0.7) Basophils # (Auto) 0.0 x10^3/uL (0.0-0.2) Segmented Neutrophils % 87 % (35-66) Band Neutrophils % 3 % (0-9) Lymphocytes % 7 % (24-48) Monocytes % 3 % (0-10) Platelet Estimate Adequate (ADEQUATE) Sodium Level 140 mmol/L (136-145) Potassium Level 3.8 mmol/L (3.5-5.1) Chloride Level 102 mmol/L (98-107) Carbon Dioxide Level 28 mmol/L (21-32) Anion Gap 10 (6-14) Blood Urea Nitrogen 19 mg/dL (7-20) Creatinine 1.0 mg/dL (0.6-1.0) Estimated GFR (Cockcroft-Gault) 53.0 Glucose Level 118 mg/dL (70-99) Calcium Level 9.3 mg/dL (8.5-10.1) Assessment and Plan Assessmemt and Plan Problems Medical Problems: (1) Intractable back pain Status: Acute Comment Review of Relevant I have reviewed the following items mann (where applicable) has been applied. Labs Laboratory Tests Test 12/04/18 20:30 12/06/18 03:15 12/06/18 03:25 Urine Collection Type Unknown Urine Color Yellow Urine Clarity Clear Urine pH 7.0 Urine Specific [place] 1.010 Urine Protein Negative mg/dL (NEG-TRACE) Urine Glucose (UA) Negative mg/dL (NEG) Urine Ketones (Stick) Negative mg/dL (NEG) Urine Blood Small (NEG) Urine Nitrite Negative (NEG) Urine Bilirubin Negative (NEG) Urine Urobilinogen Dipstick 0.2 mg/dL (0.2 mg/dL) Urine Leukocyte Esterase Trace (NEG) Urine RBC 11-20 /HPF (0-2) Urine WBC 5-10 /HPF (0-4) Urine Squamous Epithelial Cells Mod /LPF Urine Bacteria Moderate /HPF (0-FEW) Urine Hyaline Casts Few /HPF White Blood Count 9.9 x10^3/uL (4.0-11.0) Red Blood Count 4.00 x10^6/uL (3.50-5.40) Hemoglobin 12.2 g/dL (12.0-15.5) Hematocrit 37.3 % (36.0-47.0) Mean Corpuscular Volume 93 fL (79-100) Mean Corpuscular Hemoglobin 30 pg (25-35) Mean Corpuscular Hemoglobin Concent 33 g/dL (31-37) Red Cell Distribution Width 14.8 % (11.5-14.5) Platelet Count 160 x10^3/uL (140-400) Neutrophils (%) (Auto) 88 % (31-73) Lymphocytes (%) (Auto) 7 % (24-48) Monocytes (%) (Auto) 5 % (0-9) Eosinophils (%) (Auto) 0 % (0-3) Basophils (%) (Auto) 0 % (0-3) Neutrophils # (Auto) 8.7 x10^3uL (1.8-7.7) Lymphocytes # (Auto) 0.7 x10^3/uL (1.0-4.8) Monocytes # (Auto) 0.5 x10^3/uL (0.0-1.1) Eosinophils # (Auto) 0.0 x10^3/uL (0.0-0.7) Basophils # (Auto) 0.0 x10^3/uL (0.0-0.2) Segmented Neutrophils % 87 % (35-66) Band Neutrophils % 3 % (0-9) Lymphocytes % 7 % (24-48) Monocytes % 3 % (0-10) Platelet Estimate Adequate (ADEQUATE) Sodium Level 140 mmol/L (136-145) Potassium Level 3.8 mmol/L (3.5-5.1) Chloride Level 102 mmol/L (98-107) Carbon Dioxide Level 28 mmol/L (21-32) Anion Gap 10 (6-14) Blood Urea Nitrogen 19 mg/dL (7-20) Creatinine 1.0 mg/dL (0.6-1.0) Estimated GFR (Cockcroft-Gault) 53.0 Glucose Level 118 mg/dL (70-99) Calcium Level 9.3 mg/dL (8.5-10.1) Laboratory Tests Test 12/06/18 03:15 12/06/18 03:25 White Blood Count 9.9 x10^3/uL (4.0-11.0) Red Blood Count 4.00 x10^6/uL (3.50-5.40) Hemoglobin 12.2 g/dL (12.0-15.5) Hematocrit 37.3 % (36.0-47.0) Mean Corpuscular Volume 93 fL (79-100) Mean Corpuscular Hemoglobin 30 pg (25-35) Mean Corpuscular Hemoglobin Concent 33 g/dL (31-37) Red Cell Distribution Width 14.8 % (11.5-14.5) Platelet Count 160 x10^3/uL (140-400) Neutrophils (%) (Auto) 88 % (31-73) Lymphocytes (%) (Auto) 7 % (24-48) Monocytes (%) (Auto) 5 % (0-9) Eosinophils (%) (Auto) 0 % (0-3) Basophils (%) (Auto) 0 % (0-3) Neutrophils # (Auto) 8.7 x10^3uL (1.8-7.7) Lymphocytes # (Auto) 0.7 x10^3/uL (1.0-4.8) Monocytes # (Auto) 0.5 x10^3/uL (0.0-1.1) Eosinophils # (Auto) 0.0 x10^3/uL (0.0-0.7) Basophils # (Auto) 0.0 x10^3/uL (0.0-0.2) Segmented Neutrophils % 87 % (35-66) Band Neutrophils % 3 % (0-9) Lymphocytes % 7 % (24-48) Monocytes % 3 % (0-10) Platelet Estimate Adequate (ADEQUATE) Sodium Level 140 mmol/L (136-145) Potassium Level 3.8 mmol/L (3.5-5.1) Chloride Level 102 mmol/L (98-107) Carbon Dioxide Level 28 mmol/L (21-32) Anion Gap 10 (6-14) Blood Urea Nitrogen 19 mg/dL (7-20) Creatinine 1.0 mg/dL (0.6-1.0) Estimated GFR (Cockcroft-Gault) 53.0 Glucose Level 118 mg/dL (70-99) Calcium Level 9.3 mg/dL (8.5-10.1) Medications Current Medications Fentanyl Citrate (Fentanyl 2ml Vial) 50 mcg 1X ONCE IV Last administered on 12/04/18at 21:01; Start 12/04/18 at 20:45; Stop 12/04/18 at 20:46; Status DC Morphine Sulfate (Morphine Sulfate) 5 mg 1X ONCE IV Last administered on at 22:49; Start 12/04/18 at 22:30; Stop 12/04/18 at 22:31; Status DC Ondansetron HCl (Zofran) 4 mg PRN Q8HRS PRN IV NAUSEA/VOMITING Last administered on 12/05/18at 21:28; Start 12/05/18 at 03:00; Stop 12/06/18 at 02:59 ; Status DC Morphine Sulfate (Morphine Sulfate) 2 mg PRN Q2HR PRN IV PAIN Last administered on 12/05/18at 08:24; Start 12/05/18 at 03:00; Stop 12/06/18 at 02:59 ; Status DC Acetaminophen (Tylenol) 650 mg PRN Q4HRS PRN PO FEVER; Start 12/05/18 at 03:00 ; Stop 12/06/18 at 02:59; Status DC Polymyxin/ Trimethoprim Sulfate (Polytrim) 2 drop TID OU ; Start 12/05/18 at 09: 00; Stop 12/05/18 at 15:31; Status DC Albuterol Sulfate (Ventolin Neb Soln) 2.5 mg PRN Q6HRS PRN INH SHORTNESS OF BREATH; Start 12/05/18 at 12:30 Amlodipine Besylate (Norvasc) 5 mg DAILY PO Last administered on 12/06/18 08: 26; Start 12/05/18 at 13:00 Aspirin (Ecotrin) 81 mg DAILY PO Last administered on 12/06/18 08:24; Start at 13:00 Carvedilol (Coreg) 12.5 mg BIDWMEALS PO Last administered on 12/06/18 08:27; Start 12/05/18 at 17:00 Furosemide (Lasix) 20 mg DAILY PO Last administered on 12/06/18 08:25; Start 12/05/18 at 13:00 Levothyroxine Sodium (Synthroid) 88 mcg DAILY06 PO Last administered on 07:42; Start 12/05/18 at 13:00 Lisinopril (Prinivil) 10 mg DAILY PO Last administered on 12/06/18 08:24; Start 12/05/18 at 13:00 Potassium Chloride (Klor-Con) 10 meq DAILY PO Last administered on 12/06/18 08 :25; Start 12/05/18 at 13:00 Citalopram Hydrobromide (CeleXA) 40 mg DAILY PO Last administered on 12/06/18 08:22; Start 12/05/18 at 13:00 Non-Formulary Medication (Fluticasone/ Umeclidin/ Vilanter (Trelegy Ellipta 100- 62.5-25)) 1 each PRN PRN IH SHORTNESS OF BREATH; Start 12/05/18 at 12:30; Status UNV Famotidine (Pepcid) 40 mg QHS PO ; Start 12/05/18 at 21:00 Simvastatin (Zocor) 20 mg HS PO ; Start 12/05/18 at 21:00 Prochlorperazine (Compazine) 25 mg PRN Q12HR PRN LA NAUSEA/VOMITING Last administered on 12/05/18 16:53; Start 12/05/18 at 16:30 Acetaminophen (Tylenol) 650 mg PRN Q4HRS PRN PO FEVER, HEADACHE Last administered on 12/06/18 08:23; Start 12/06/18 at 08:00 Active Scripts Active Amlodipine Besylate 5 Mg Tablet 5 Mg PO DAILY 30 Days Reported Proair Hfa (Albuterol Sulfate) 8.5 Gm Hfa.aer.ad 1 Puff INH PRN Q6HRS PRN Trelegy Ellipta 100-62.5-25 (Fluticasone/Umeclidin/Vilanter) 1 Each Blst.w.dev 1 Each IH PRN PRN Potassium Chloride 10 Meq Tab.sr.24h 10 Meq PO DAILY Lasix (Furosemide) 20 Mg Tablet 1 Tab PO DAILY Levothyroxine Sodium 88 Mcg Tablet 1 Tab PO DAILY Ranitidine Hcl 300 Mg Tablet 300 Mg PO DAILY Aspir 81 (Aspirin) 81 Mg Tablet.dr 1 Tab PO DAILY Escitalopram Oxalate 20 Mg Tablet 1 Tab PO DAILY Simvastatin 20 Mg Tablet 1 Tab PO QHS Carvedilol (Carvedilol) 12.5 Mg Tablet 1 Tab PO BID Lisinopril 10 Mg Tablet 1 Tab PO DAILY Vitals/I & O Vital Sign - Last 24 Hours 12/05/18 12/05/18 12/05/18 12/05/18 11:00 15:00 15:44 15:45 Temp 98.2 99.5 98.2 99.5 Pulse 94 76 94 94 Resp 18 18 B/P (MAP) 172/80 (110) 156/75 (102) 172/80 172/80 Pulse Ox 94 97 O2 Delivery Nasal Cannula Nasal Cannula O2 Flow Rate 2.0 2.0 12/05/18 12/05/18 12/05/18 12/05/18 16:19 19:15 20:00 23:30 Temp 98.2 99.2 98.2 99.2 Pulse 92 95 Resp 22 18 B/P (MAP) 175/84 (114) 177/88 (117) Pulse Ox 92 91 93 O2 Delivery Nasal Cannula Nasal Cannula Nasal Cannula Nasal Cannula O2 Flow Rate 2.5 2.0 2.0 2.0 12/06/18 12/06/18 12/06/18 12/06/18 03:00 07:00 08:24 08:26 Temp 98.9 98.5 98.9 98.5 Pulse 90 83 90 90 Resp 18 16 B/P (MAP) 168/82 (110) 162/57 (92) 168/82 168/82 Pulse Ox 95 95 O2 Delivery Nasal Cannula Nasal Cannula O2 Flow Rate 2.0 2.0 12/06/18 08:27 Pulse 90 B/P (MAP) 168/82 Intake and Output 12/05/18 12/05/18 12/06/18 15:01 23:01 07:01 Intake Total 25 ml 440 ml Output Total 20 ml Balance 25 ml 420 ml IRAIS GUSTAFSON MD Dec 06, 2018 09:41
[2018-12-06 11:00] VITALS: BP 148/70
--- NOTE | 2018-12-06 11:14 | NUR ---
SW following for discharge planning. Discussed with RN, pt lives at home with son. SW awaiting PT/OT recommendations for discharge. TITI spoke with Dr. Soriano who stated family is interested in assisted living for pt, possibly after SNU. RN notified. SW will continue to follow.
--- NOTE | 2018-12-06 14:10 | NUR ---
SW following. SW met with pt to discuss discharge planning and referral for info on advance directives. Pt is wanting to have a DNR, and interested in possibly changing her DPOA for Healthcare to someone other than her sister. Pt is going to decide who she would like to appoint, SW will meet with pt tomorrow morning (12/07/18). SW discussed possibility of SNU if PT/OT recommend, pt would like to go to [facility]. Pt lives at home, her son lives with her, however they are selling the home and pt plans to move to [facility], family is trying to organize this currently. RN notified about pt wanting DNR. SW will await PT/OT notes to send referral to [facility].
--- NOTE | 2018-12-06 15:45 | RAD ---
EXAM: Lumbar spine MRI without contrast. HISTORY: L1 compression fracture. TECHNIQUE: Multiplanar, multisequence magnetic resonance imaging of the lumbar spine was performed without contrast. COMPARISON: CT dated 12/04/2018. FINDINGS: There is a mild to moderate L1 compression fracture. There is minimal edema along the fracture line, favoring a late subacute to early chronic etiology. There is approximately one third decreased of anterior vertebral body height and 3 mm retropulsion of the posterior superior cortex into the central canal, without significant stenosis. The remainder of the lumbar vertebral bodies are normal in height. There is no significant listhesis. No suspicious osseous lesion is seen. The conus terminates at L1. There is evidence of ventral abdominal wall hernia repair. There is a small right renal cyst. At L1-L2, there is no stenosis. At L2-L3, there is a disc bulge. There is no stenosis. At L3-L4, there is a disc bulge and endplate remodeling. There is minimal facet arthropathy. There is minimal bilateral foraminal stenosis. At L4-L5, there is a broad-based right foraminal to extraforaminal disc protrusion superimposed on a disc bulge and endplate remodeling. There is mild left and minimal right facet arthropathy. There is mild right and minimal left foraminal stenosis with abutment of the exiting right L4 nerve root. There is mild central canal stenosis. At L5-S1, there is a right posterior lateral predominant disc bulge. There is minimal right facet arthropathy. There is no stenosis. IMPRESSION: 1. Mild L1 compression fracture. There is minimal edema along the fracture line, favoring a late subacute to early chronic etiology. 2. Multilevel degenerative change throughout the lumbar spine, described in detail above. 3. Note is made that suspected fractures involving the sacrum on the prior CT are excluded from the [id number]. Electronically signed by: Jennifer William MD (12/06/2018 3:40 PM) [id number]
[2018-12-06 16:40] VITALS: BP 131/55
[2018-12-06] MEDS: HYDROcodone/APAP 5/325MG 1 TAB TABLET PO PRN (18:02)
[2018-12-06 19:00] VITALS: BP 135/63
[2018-12-06] MEDS: SIMVASTATIN 20 MG TABLET PO SCH (20:41)
[2018-12-06] MEDS: FAMOTIDINE 20 MG TABLET. PO SCH (20:41)
[2018-12-07] VITALS (12 sets, daily range): BP systolic 85–127; BP diastolic 45–91
--- NOTE | 2018-12-07 01:29 | CONS ---
DATE OF CONSULTATION: 12/06/2018 LOCATION: She is in room 412. HISTORY: This is an 83-year-old female admitted on 12/05/2018 through the Emergency Room complaining of severe lower back pain. She tripped on her oxygen tubing and fell landing on her buttocks without any loss of consciousness. The patient with known congestive heart failure, chronic obstructive pulmonary disease, hypercholesterolemia, hypertension, status post appendectomy, cholecystectomy, tonsillectomy, stent placement in her leg, ORIF right femur fracture, also left wrist. The patient also with known coronary artery disease, hepatitis A, B, C positive, depression, osteoarthritis, hyperthyroidism, status post right hip surgery. ALLERGIES: THE PATIENT IS KNOWN ALLERGIC TO SULFA. She lives with her son, had one or two steps to enter the house. She has been using a roller walker ever since her hip injury from the fall. The patient uses oxygen by nasal cannula at 2-1/2 liters all the time. The patient since admission had radiological studies, which revealed evidence of acute appearing superior endplate compression deformity of L1 with mild retropulsion resulting in mild spinal canal narrowing, patchy sclerosis and lucency of the right and left sacral ala suspicious for stress fractures, degenerative spondylosis with stenosis greatest at L4-L5. KUB failed to reveal nonobstructive gas pattern. The patient admits some help with lumbar corset she received. The patient denies any numbness, tingling sensation in her extremities. PHYSICAL EXAMINATION: Today revealed an elderly female. She is alert, oriented to time, place, person and circumstance and follows commands appropriately. She moves all 4 extremities voluntarily where she had 4+/5 grade muscle strength. Deep tendon reflexes are brisk bilaterally. She had equal perception of touch and pinprick sensation bilaterally. She had tenderness to palpation over lumbar paraspinal muscles. Straight leg raising test is negative bilaterally. She had painful range of motion of all four extremity joints. She is having lumbar corset higher up in her lower thoracic spine area rather than lumbar spine area. I have adjusted the brace and she got up and walked using a roller walker without any significant discomfort. No significant lumbar paraspinal muscle spasm was noted at this time. Her skin is intact at this time. ASSESSMENT: An elderly female with recent fall and L1 vertebral body compression fracture with associated degenerative disk disease and degenerative joint disease of lumbar vertebrae without any clinical evidence of ongoing lumbar radiculopathy. The patient with known chronic obstructive pulmonary disease, oxygen dependent; congestive heart failure; hypercholesterolemia; hypertension, coronary artery disease. RECOMMENDATIONS: She is doing satisfactorily with lumbar corset, but her family is insisting on kyphoplasty as she does not usually admit that much pain. Agree with the plans for kyphoplasty and hopefully to alf care unit as family is considering assisted living placement as she is by herself when her son goes to work. Dr. Boyer, I appreciate asking me to participate in the care of this interesting patient. I will be glad to follow her with you as needed for her rehabilitation. ELSA MOSELY MD DR: JENS/efrain JOB#: [id number] / [id number] Michaela Mckinney
[2018-12-07] MEDS: LEVOTHYROXINE 88 MCG TABLET PO SCH (06:27)
[2018-12-07] MEDS: HYDROcodone/APAP 5/325MG 1 TAB TABLET PO PRN ×2 (06:41→22:34)
[2018-12-07] MEDS: CARVEDILOL 12.5 MG TABLET. PO SCH ×3 (08:00→17:00)
[2018-12-07 08:39] LABS: BASO % 0 % (0-3); EOS # 0.2 x10^3/uL (0.0-0.7); EOS % 2 % (0-3); HEMOGLOBIN 11.4 g/dL (12.0-15.5); LYMPH # 1.2 x10^3/uL (1.0-4.8); LYMPH % 13 % (24-48); MEAN CORPUSCULAR HEMOGLOBIN 31 pg (25-35); MEAN CORPUSCULAR HGB CONC 33 g/dL (31-37); MEAN CORPUSCULAR VOLUME 94 fL (79-100); MONO # 0.9 x10^3/uL (0.0-1.1); MONO % 10 % (0-9); NEUT # 6.9 x10^3uL (1.8-7.7); NEUT % 75 % (31-73); PLATELET COUNT 146 x10^3/uL (140-400); RED BLOOD COUNT 3.73 x10^6/uL (3.50-5.40); RED CELL DISTRIBUTION WIDTH 14.6 % (11.5-14.5); WHITE BLOOD COUNT 9.2 x10^3/uL (4.0-11.0)
[2018-12-07] MEDS: FUROSEMIDE 20 MG TABLET PO SCH (09:00)
[2018-12-07] MEDS: LISINOPRIL 10 MG TABLET PO SCH (09:00)
[2018-12-07] MEDS: ASPIRIN ENTERIC COATED 81 MG TABLET.DR. PO SCH (09:00)
[2018-12-07] MEDS: amLODIPine BESYLATE 5 MG TABLET PO SCH (09:00)
[2018-12-07] MEDS: CITALOPRAM 20 MG TABLET. PO SCH (09:00)
[2018-12-07] MEDS: POTASSIUM CHLORIDE 10 MEQ TABLET.ER. PO SCH (09:00)
[2018-12-07 09:02] LABS: CALCIUM 8.9 mg/dL (8.5-10.1); CREATININE 1.2 mg/dL (0.6-1.0); GFR 42.9; POTASSIUM 3.4 mmol/L (3.5-5.1)
--- NOTE | 2018-12-07 10:00 | PDOC ---
PROGRESS NOTES Subjective Subjective No new complaints. Objective Objective Vital Signs Date Time Temp Pulse Resp B/P (MAP) Pulse Ox O2 Delivery O2 Flow Rate FiO2 12/07/18 08:00 96 Nasal Cannula 2.5 12/07/18 07:00 98.1 63 18 107/51 (69) 98.1 Intake and Output 12/07/18 06:59 Intake Total 120 ml Balance 120 ml Intake Oral 120 ml # Voids 3 Physical Exam Physical Exam She is supine in bed and had lumbar corset on over lower thoracic level. Assessment Assessment Problems Medical Problems: (1) Intractable back pain Status: Acute Plan Plan of Care Awaiting kyphoplasty and to SNF tomorrow. Comment Review of Relevant I have reviewed the following items mann (where applicable) has been applied. Labs Laboratory Tests Test 12/06/18 03:15 12/06/18 03:25 12/07/18 08:25 White Blood Count 9.9 x10^3/uL (4.0-11.0) 9.2 x10^3/uL (4.0-11.0) Red Blood Count 4.00 x10^6/uL (3.50-5.40) 3.73 x10^6/uL (3.50-5.40) Hemoglobin 12.2 g/dL (12.0-15.5) 11.4 g/dL (12.0-15.5) Hematocrit 37.3 % (36.0-47.0) 35.0 % (36.0-47.0) Mean Corpuscular Volume 93 fL (79-100) 94 fL (79-100) Mean Corpuscular Hemoglobin 30 pg (25-35) 31 pg (25-35) Mean Corpuscular Hemoglobin Concent 33 g/dL (31-37) 33 g/dL (31-37) Red Cell Distribution Width 14.8 % (11.5-14.5) 14.6 % (11.5-14.5) Platelet Count 160 x10^3/uL (140-400) 146 x10^3/uL (140-400) Neutrophils (%) (Auto) 88 % (31-73) 75 % (31-73) Lymphocytes (%) (Auto) 7 % (24-48) 13 % (24-48) Monocytes (%) (Auto) 5 % (0-9) 10 % (0-9) Eosinophils (%) (Auto) 0 % (0-3) 2 % (0-3) Basophils (%) (Auto) 0 % (0-3) 0 % (0-3) Neutrophils # (Auto) 8.7 x10^3uL (1.8-7.7) 6.9 x10^3uL (1.8-7.7) Lymphocytes # (Auto) 0.7 x10^3/uL (1.0-4.8) 1.2 x10^3/uL (1.0-4.8) Monocytes # (Auto) 0.5 x10^3/uL (0.0-1.1) 0.9 x10^3/uL (0.0-1.1) Eosinophils # (Auto) 0.0 x10^3/uL (0.0-0.7) 0.2 x10^3/uL (0.0-0.7) Basophils # (Auto) 0.0 x10^3/uL (0.0-0.2) 0.0 x10^3/uL (0.0-0.2) Segmented Neutrophils % 87 % (35-66) Band Neutrophils % 3 % (0-9) Lymphocytes % 7 % (24-48) Monocytes % 3 % (0-10) Platelet Estimate Adequate (ADEQUATE) Sodium Level 140 mmol/L (136-145) 140 mmol/L (136-145) Potassium Level 3.8 mmol/L (3.5-5.1) 3.4 mmol/L (3.5-5.1) Chloride Level 102 mmol/L (98-107) 101 mmol/L (98-107) Carbon Dioxide Level 28 mmol/L (21-32) 34 mmol/L (21-32) Anion Gap 10 (6-14) 5 (6-14) Blood Urea Nitrogen 19 mg/dL (7-20) 30 mg/dL (7-20) Creatinine 1.0 mg/dL (0.6-1.0) 1.2 mg/dL (0.6-1.0) Estimated GFR (Cockcroft-Gault) 53.0 42.9 Glucose Level 118 mg/dL (70-99) 96 mg/dL (70-99) Calcium Level 9.3 mg/dL (8.5-10.1) 8.9 mg/dL (8.5-10.1) Laboratory Tests Test 12/07/18 08:25 White Blood Count 9.2 x10^3/uL (4.0-11.0) Red Blood Count 3.73 x10^6/uL (3.50-5.40) Hemoglobin 11.4 g/dL (12.0-15.5) Hematocrit 35.0 % (36.0-47.0) Mean Corpuscular Volume 94 fL (79-100) Mean Corpuscular Hemoglobin 31 pg (25-35) Mean Corpuscular Hemoglobin Concent 33 g/dL (31-37) Red Cell Distribution Width 14.6 % (11.5-14.5) Platelet Count 146 x10^3/uL (140-400) Neutrophils (%) (Auto) 75 % (31-73) Lymphocytes (%) (Auto) 13 % (24-48) Monocytes (%) (Auto) 10 % (0-9) Eosinophils (%) (Auto) 2 % (0-3) Basophils (%) (Auto) 0 % (0-3) Neutrophils # (Auto) 6.9 x10^3uL (1.8-7.7) Lymphocytes # (Auto) 1.2 x10^3/uL (1.0-4.8) Monocytes # (Auto) 0.9 x10^3/uL (0.0-1.1) Eosinophils # (Auto) 0.2 x10^3/uL (0.0-0.7) Basophils # (Auto) 0.0 x10^3/uL (0.0-0.2) Sodium Level 140 mmol/L (136-145) Potassium Level 3.4 mmol/L (3.5-5.1) Chloride Level 101 mmol/L (98-107) Carbon Dioxide Level 34 mmol/L (21-32) Anion Gap 5 (6-14) Blood Urea Nitrogen 30 mg/dL (7-20) Creatinine 1.2 mg/dL (0.6-1.0) Estimated GFR (Cockcroft-Gault) 42.9 Glucose Level 96 mg/dL (70-99) Calcium Level 8.9 mg/dL (8.5-10.1) Microbiology 12/04/18 Urine Culture - Preliminary, Resulted 12/04/18 Urine Culture Result 1 (LAURA) - Preliminary, Resulted Medications Current Medications Fentanyl Citrate (Fentanyl 2ml Vial) 50 mcg 1X ONCE IV Last administered on 12/04/18at 21:01; Start 12/04/18 at 20:45; Stop 12/04/18 at 20:46; Status DC Morphine Sulfate (Morphine Sulfate) 5 mg 1X ONCE IV Last administered on at 22:49; Start 12/04/18 at 22:30; Stop 12/04/18 at 22:31; Status DC Ondansetron HCl (Zofran) 4 mg PRN Q8HRS PRN IV NAUSEA/VOMITING Last administered on 12/05/18at 21:28; Start 12/05/18 at 03:00; Stop 12/06/18 at 02:59 ; Status DC Morphine Sulfate (Morphine Sulfate) 2 mg PRN Q2HR PRN IV PAIN Last administered on 12/05/18at 08:24; Start 12/05/18 at 03:00; Stop 12/06/18 at 02:59 ; Status DC Acetaminophen (Tylenol) 650 mg PRN Q4HRS PRN PO FEVER; Start 12/05/18 at 03:00 ; Stop 12/06/18 at 02:59; Status DC Polymyxin/ Trimethoprim Sulfate (Polytrim) 2 drop TID OU ; Start 12/05/18 at 09: 00; Stop 12/05/18 at 15:31; Status DC Albuterol Sulfate (Ventolin Neb Soln) 2.5 mg PRN Q6HRS PRN INH SHORTNESS OF BREATH; Start 12/05/18 at 12:30 Amlodipine Besylate (Norvasc) 5 mg DAILY PO Last administered on 12/06/18at 08: 26; Start 12/05/18 at 13:00 Aspirin (Ecotrin) 81 mg DAILY PO Last administered on 12/06/18at 08:24; Start at 13:00 Carvedilol (Coreg) 12.5 mg BIDWMEALS PO Last administered on 12/06/18at 17:22; Start 12/05/18 at 17:00 Furosemide (Lasix) 20 mg DAILY PO Last administered on 12/06/18at 08:25; Start 12/05/18 at 13:00 Levothyroxine Sodium (Synthroid) 88 mcg DAILY06 PO Last administered on 06:27; Start 12/05/18 at 13:00 Lisinopril (Prinivil) 10 mg DAILY PO Last administered on 12/06/18 08:24; Start 12/05/18 at 13:00 Potassium Chloride (Klor-Con) 10 meq DAILY PO Last administered on 12/06/18 08 :25; Start 12/05/18 at 13:00 Citalopram Hydrobromide (CeleXA) 40 mg DAILY PO Last administered on 12/06/18 08:22; Start 12/05/18 at 13:00 Non-Formulary Medication (Fluticasone/ Umeclidin/ Vilanter (Trelegy Ellipta 100- 62.5-25)) 1 each PRN PRN IH SHORTNESS OF BREATH; Start 12/05/18 at 12:30; Status UNV Famotidine (Pepcid) 40 mg QHS PO Last administered on 12/06/18 20:41; Start at 21:00 Simvastatin (Zocor) 20 mg HS PO Last administered on 12/06/18 20:41; Start 08/13 at 21:00 Prochlorperazine (Compazine) 25 mg PRN Q12HR PRN [place] NAUSEA/VOMITING Last administered on 12/05/18 16:53; Start 12/05/18 at 16:30 Acetaminophen (Tylenol) 650 mg PRN Q4HRS PRN PO FEVER, HEADACHE Last administered on 12/06/18 08:23; Start 12/06/18 at 08:00 Acetaminophen/ Hydrocodone Bitart (Lortab 5/325) 1 tab PRN Q4HRS PRN PO PAIN Last administered on 12/07/18 06:41; Start 12/06/18 at 17:30 Active Scripts Active Amlodipine Besylate 5 Mg Tablet 5 Mg PO DAILY 30 Days Reported Proair Hfa (Albuterol Sulfate) 8.5 Gm Hfa.aer.ad 1 Puff INH PRN Q6HRS PRN Trelegy Ellipta 100-62.5-25 (Fluticasone/Umeclidin/Vilanter) 1 Each Blst.w.dev 1 Each IH PRN PRN Potassium Chloride 10 Meq Tab.sr.24h 10 Meq PO DAILY Lasix (Furosemide) 20 Mg Tablet 1 Tab PO DAILY Levothyroxine Sodium 88 Mcg Tablet 1 Tab PO DAILY Ranitidine Hcl 300 Mg Tablet 300 Mg PO DAILY Aspir 81 (Aspirin) 81 Mg Tablet.dr 1 Tab PO DAILY Escitalopram Oxalate 20 Mg Tablet 1 Tab PO DAILY Simvastatin 20 Mg Tablet 1 Tab PO QHS Carvedilol (Carvedilol) 12.5 Mg Tablet 1 Tab PO BID Lisinopril 10 Mg Tablet 1 Tab PO DAILY Vitals/I & O Vital Sign - Last 24 Hours 12/06/18 12/06/18 12/06/18 12/06/18 11:00 16:40 17:22 18:02 Temp 99.3 98.8 99.3 98.8 Pulse 76 68 68 Resp 18 16 B/P (MAP) 148/70 (96) 131/55 (80) 131/55 Pulse Ox 94 97 97 O2 Delivery Nasal Cannula Nasal Cannula Nasal Cannula O2 Flow Rate 2.0 2.0 2.0 12/06/18 12/06/18 12/07/18 12/07/18 19:00 20:10 03:00 06:41 Temp 99.0 98.4 99.0 98.4 Pulse 68 57 Resp 18 18 B/P (MAP) 135/63 (87) 114/45 (68) Pulse Ox 96 98 98 O2 Delivery Nasal Cannula Nasal Cannula Nasal Cannula Nasal Cannula O2 Flow Rate 2.0 2.5 2.0 2.5 12/07/18 12/07/18 07:00 08:00 Temp 98.1 98.1 Pulse 63 Resp 18 B/P (MAP) 107/51 (69) Pulse Ox 96 96 O2 Delivery Room Air Nasal Cannula O2 Flow Rate 2.5 Intake and Output 12/06/18 12/06/18 12/07/18 14:59 22:59 06:59 Intake Total 120 ml Balance 120 ml ELSA MOSLEY MD Dec 07, 2018 10:00
--- NOTE | 2018-12-07 10:09 | PDOC ---
PROGRESS NOTES History of Present Illness History of Present Illness VTE Prophylaxis Ordered VTE Prophylaxis Devices: No VTE Pharmacological Prophylaxi: No Assessment/Plan Assessment/Plan IMPRESSION: 1. Acute superior endplate compression fracture of L1. Mild retropulsion results in mild spinal canal narrowing. 2. Patchy sclerosis and lucency of the right and left sacral ala, suspicious for stress fractures. 3. Degenerative spondylosis with stenosis greatest at L4-L5. 4-CAD, on plavix, 5-GERD 6- depression or anxiety, w/ insomnia, 7. N/V 2/10 KUB NONOBSTRUCTIVE BOWEL PATTERN 8. on mri L4-L5, there is a broad-based right foraminal to extraforaminal disc protrusion superimposed on a disc bulge PLAN Consult Dr Soriano consult IR , vertebroplasty CONSULT Neurosurgery mri l/s t/s TODAY home meds dvt prophylaxis d/c pending kyphoplasty today Vitals Vitals Vital Signs Date Time Temp Pulse Resp B/P (MAP) Pulse Ox O2 Delivery O2 Flow Rate FiO2 12/07/18 08:00 96 Nasal Cannula 2.5 12/07/18 07:00 98.1 63 18 107/51 (69) 98.1 Physical Exam General: Alert, Oriented X3, Cooperative, mild distress Heart: Regular rate Lungs: Clear Abdomen: Normal bowel sounds, Soft, No tenderness, No hepatosplenomegaly Extremities: No cyanosis, No edema Labs LABS EXAM: Lumbar spine MRI without contrast. HISTORY: L1 compression fracture. TECHNIQUE: Multiplanar, multisequence magnetic resonance imaging of the lumbar spine was performed without contrast. COMPARISON: CT dated 12/04/2018. FINDINGS: There is a mild to moderate L1 compression fracture. There is minimal edema along the fracture line, favoring a late subacute to early chronic etiology. There is approximately one third decreased of anterior vertebral body height and 3 mm retropulsion of the posterior superior cortex into the central canal, without significant stenosis. The remainder of the lumbar vertebral bodies are normal in height. There is no significant listhesis. No suspicious osseous lesion is seen. The conus terminates at L1. There is evidence of ventral abdominal wall hernia repair. There is a small right renal cyst. At L1-L2, there is no stenosis. At L2-L3, there is a disc bulge. There is no stenosis. At L3-L4, there is a disc bulge and endplate remodeling. There is minimal facet arthropathy. There is minimal bilateral foraminal stenosis. At L4-L5, there is a broad-based right foraminal to extraforaminal disc protrusion superimposed on a disc bulge and endplate remodeling. There is mild left and minimal right facet arthropathy. There is mild right and minimal left foraminal stenosis with abutment of the exiting right L4 nerve root. There is mild central canal stenosis. At L5-S1, there is a right posterior lateral predominant disc bulge. There is minimal right facet arthropathy. There is no stenosis. IMPRESSION: 1. Mild L1 compression fracture. There is minimal edema along the fracture line, favoring a late subacute to early chronic etiology. 2. Multilevel degenerative change throughout the lumbar spine, described in detail above. 3. Note is made that suspected fractures involving the sacrum on the prior CT are excluded from the [id number]. Electronically signed by: Jennifer William MD (12/06/2018 3:40 PM) [id number] Laboratory Tests Test 12/07/18 08:25 White Blood Count 9.2 x10^3/uL (4.0-11.0) Red Blood Count 3.73 x10^6/uL (3.50-5.40) Hemoglobin 11.4 g/dL (12.0-15.5) Hematocrit 35.0 % (36.0-47.0) Mean Corpuscular Volume 94 fL (79-100) Mean Corpuscular Hemoglobin 31 pg (25-35) Mean Corpuscular Hemoglobin Concent 33 g/dL (31-37) Red Cell Distribution Width 14.6 % (11.5-14.5) Platelet Count 146 x10^3/uL (140-400) Neutrophils (%) (Auto) 75 % (31-73) Lymphocytes (%) (Auto) 13 % (24-48) Monocytes (%) (Auto) 10 % (0-9) Eosinophils (%) (Auto) 2 % (0-3) Basophils (%) (Auto) 0 % (0-3) Neutrophils # (Auto) 6.9 x10^3uL (1.8-7.7) Lymphocytes # (Auto) 1.2 x10^3/uL (1.0-4.8) Monocytes # (Auto) 0.9 x10^3/uL (0.0-1.1) Eosinophils # (Auto) 0.2 x10^3/uL (0.0-0.7) Basophils # (Auto) 0.0 x10^3/uL (0.0-0.2) Sodium Level 140 mmol/L (136-145) Potassium Level 3.4 mmol/L (3.5-5.1) Chloride Level 101 mmol/L (98-107) Carbon Dioxide Level 34 mmol/L (21-32) Anion Gap 5 (6-14) Blood Urea Nitrogen 30 mg/dL (7-20) Creatinine 1.2 mg/dL (0.6-1.0) Estimated GFR (Cockcroft-Gault) 42.9 Glucose Level 96 mg/dL (70-99) Calcium Level 8.9 mg/dL (8.5-10.1) Assessment and Plan Assessmemt and Plan Problems Medical Problems: (1) Intractable back pain Status: Acute Comment Review of Relevant I have reviewed the following items mann (where applicable) has been applied. Labs Laboratory Tests Test 12/06/18 03:15 12/06/18 03:25 12/07/18 08:25 White Blood Count 9.9 x10^3/uL (4.0-11.0) 9.2 x10^3/uL (4.0-11.0) Red Blood Count 4.00 x10^6/uL (3.50-5.40) 3.73 x10^6/uL (3.50-5.40) Hemoglobin 12.2 g/dL (12.0-15.5) 11.4 g/dL (12.0-15.5) Hematocrit 37.3 % (36.0-47.0) 35.0 % (36.0-47.0) Mean Corpuscular Volume 93 fL (79-100) 94 fL (79-100) Mean Corpuscular Hemoglobin 30 pg (25-35) 31 pg (25-35) Mean Corpuscular Hemoglobin Concent 33 g/dL (31-37) 33 g/dL (31-37) Red Cell Distribution Width 14.8 % (11.5-14.5) 14.6 % (11.5-14.5) Platelet Count 160 x10^3/uL (140-400) 146 x10^3/uL (140-400) Neutrophils (%) (Auto) 88 % (31-73) 75 % (31-73) Lymphocytes (%) (Auto) 7 % (24-48) 13 % (24-48) Monocytes (%) (Auto) 5 % (0-9) 10 % (0-9) Eosinophils (%) (Auto) 0 % (0-3) 2 % (0-3) Basophils (%) (Auto) 0 % (0-3) 0 % (0-3) Neutrophils # (Auto) 8.7 x10^3uL (1.8-7.7) 6.9 x10^3uL (1.8-7.7) Lymphocytes # (Auto) 0.7 x10^3/uL (1.0-4.8) 1.2 x10^3/uL (1.0-4.8) Monocytes # (Auto) 0.5 x10^3/uL (0.0-1.1) 0.9 x10^3/uL (0.0-1.1) Eosinophils # (Auto) 0.0 x10^3/uL (0.0-0.7) 0.2 x10^3/uL (0.0-0.7) Basophils # (Auto) 0.0 x10^3/uL (0.0-0.2) 0.0 x10^3/uL (0.0-0.2) Segmented Neutrophils % 87 % (35-66) Band Neutrophils % 3 % (0-9) Lymphocytes % 7 % (24-48) Monocytes % 3 % (0-10) Platelet Estimate Adequate (ADEQUATE) Sodium Level 140 mmol/L (136-145) 140 mmol/L (136-145) Potassium Level 3.8 mmol/L (3.5-5.1) 3.4 mmol/L (3.5-5.1) Chloride Level 102 mmol/L (98-107) 101 mmol/L (98-107) Carbon Dioxide Level 28 mmol/L (21-32) 34 mmol/L (21-32) Anion Gap 10 (6-14) 5 (6-14) Blood Urea Nitrogen 19 mg/dL (7-20) 30 mg/dL (7-20) Creatinine 1.0 mg/dL (0.6-1.0) 1.2 mg/dL (0.6-1.0) Estimated GFR (Cockcroft-Gault) 53.0 42.9 Glucose Level 118 mg/dL (70-99) 96 mg/dL (70-99) Calcium Level 9.3 mg/dL (8.5-10.1) 8.9 mg/dL (8.5-10.1) Laboratory Tests Test 12/07/18 08:25 White Blood Count 9.2 x10^3/uL (4.0-11.0) Red Blood Count 3.73 x10^6/uL (3.50-5.40) Hemoglobin 11.4 g/dL (12.0-15.5) Hematocrit 35.0 % (36.0-47.0) Mean Corpuscular Volume 94 fL (79-100) Mean Corpuscular Hemoglobin 31 pg (25-35) Mean Corpuscular Hemoglobin Concent 33 g/dL (31-37) Red Cell Distribution Width 14.6 % (11.5-14.5) Platelet Count 146 x10^3/uL (140-400) Neutrophils (%) (Auto) 75 % (31-73) Lymphocytes (%) (Auto) 13 % (24-48) Monocytes (%) (Auto) 10 % (0-9) Eosinophils (%) (Auto) 2 % (0-3) Basophils (%) (Auto) 0 % (0-3) Neutrophils # (Auto) 6.9 x10^3uL (1.8-7.7) Lymphocytes # (Auto) 1.2 x10^3/uL (1.0-4.8) Monocytes # (Auto) 0.9 x10^3/uL (0.0-1.1) Eosinophils # (Auto) 0.2 x10^3/uL (0.0-0.7) Basophils # (Auto) 0.0 x10^3/uL (0.0-0.2) Sodium Level 140 mmol/L (136-145) Potassium Level 3.4 mmol/L (3.5-5.1) Chloride Level 101 mmol/L (98-107) Carbon Dioxide Level 34 mmol/L (21-32) Anion Gap 5 (6-14) Blood Urea Nitrogen 30 mg/dL (7-20) Creatinine 1.2 mg/dL (0.6-1.0) Estimated GFR (Cockcroft-Gault) 42.9 Glucose Level 96 mg/dL (70-99) Calcium Level 8.9 mg/dL (8.5-10.1) Microbiology 12/04/18 Urine Culture - Preliminary, Resulted 12/04/18 Urine Culture Result 1 (LAURA) - Preliminary, Resulted Medications Current Medications Fentanyl Citrate (Fentanyl 2ml Vial) 50 mcg 1X ONCE IV Last administered on 12/04/18at 21:01; Start 12/04/18 at 20:45; Stop 12/04/18 at 20:46; Status DC Morphine Sulfate (Morphine Sulfate) 5 mg 1X ONCE IV Last administered on at 22:49; Start 12/04/18 at 22:30; Stop 12/04/18 at 22:31; Status DC Ondansetron HCl (Zofran) 4 mg PRN Q8HRS PRN IV NAUSEA/VOMITING Last administered on 12/05/18at 21:28; Start 12/05/18 at 03:00; Stop 12/06/18 at 02:59 ; Status DC Morphine Sulfate (Morphine Sulfate) 2 mg PRN Q2HR PRN IV PAIN Last administered on 12/05/18at 08:24; Start 12/05/18 at 03:00; Stop 12/06/18 at 02:59 ; Status DC Acetaminophen (Tylenol) 650 mg PRN Q4HRS PRN PO FEVER; Start 12/05/18 at 03:00 ; Stop 12/06/18 at 02:59; Status DC Polymyxin/ Trimethoprim Sulfate (Polytrim) 2 drop TID OU ; Start 12/05/18 at 09: 00; Stop 12/05/18 at 15:31; Status DC Albuterol Sulfate (Ventolin Neb Soln) 2.5 mg PRN Q6HRS PRN INH SHORTNESS OF BREATH; Start 12/05/18 at 12:30 Amlodipine Besylate (Norvasc) 5 mg DAILY PO Last administered on 12/06/18at 08: 26; Start 12/05/18 at 13:00 Aspirin (Ecotrin) 81 mg DAILY PO Last administered on 12/06/18at 08:24; Start at 13:00 Carvedilol (Coreg) 12.5 mg BIDWMEALS PO Last administered on 12/06/18 17:22; Start 12/05/18 at 17:00 Furosemide (Lasix) 20 mg DAILY PO Last administered on 12/06/18 08:25; Start 12/05/18 at 13:00 Levothyroxine Sodium (Synthroid) 88 mcg DAILY06 PO Last administered on 06:27; Start 12/05/18 at 13:00 Lisinopril (Prinivil) 10 mg DAILY PO Last administered on 12/06/18 08:24; Start 12/05/18 at 13:00 Potassium Chloride (Klor-Con) 10 meq DAILY PO Last administered on 12/06/18 08 :25; Start 12/05/18 at 13:00 Citalopram Hydrobromide (CeleXA) 40 mg DAILY PO Last administered on 12/06/18 08:22; Start 12/05/18 at 13:00 Non-Formulary Medication (Fluticasone/ Umeclidin/ Vilanter (Trelegy Ellipta 100- 62.5-25)) 1 each PRN PRN IH SHORTNESS OF BREATH; Start 12/05/18 at 12:30; Status UNV Famotidine (Pepcid) 40 mg QHS PO Last administered on 12/06/18 20:41; Start at 21:00 Simvastatin (Zocor) 20 mg HS PO Last administered on 12/06/18 20:41; Start 08/13 at 21:00 Prochlorperazine (Compazine) 25 mg PRN Q12HR PRN [place] NAUSEA/VOMITING Last administered on 12/05/18 16:53; Start 12/05/18 at 16:30 Acetaminophen (Tylenol) 650 mg PRN Q4HRS PRN PO FEVER, HEADACHE Last administered on 12/06/18 08:23; Start 12/06/18 at 08:00 Acetaminophen/ Hydrocodone Bitart (Lortab 5/325) 1 tab PRN Q4HRS PRN PO PAIN Last administered on 12/07/18 06:41; Start 12/06/18 at 17:30 Active Scripts Active Amlodipine Besylate 5 Mg Tablet 5 Mg PO DAILY 30 Days Reported Proair Hfa (Albuterol Sulfate) 8.5 Gm Hfa.aer.ad 1 Puff INH PRN Q6HRS PRN Trelegy Ellipta 100-62.5-25 (Fluticasone/Umeclidin/Vilanter) 1 Each Blst.w.dev 1 Each IH PRN PRN Potassium Chloride 10 Meq Tab.sr.24h 10 Meq PO DAILY Lasix (Furosemide) 20 Mg Tablet 1 Tab PO DAILY Levothyroxine Sodium 88 Mcg Tablet 1 Tab PO DAILY Ranitidine Hcl 300 Mg Tablet 300 Mg PO DAILY Aspir 81 (Aspirin) 81 Mg Tablet.dr 1 Tab PO DAILY Escitalopram Oxalate 20 Mg Tablet 1 Tab PO DAILY Simvastatin 20 Mg Tablet 1 Tab PO QHS Carvedilol (Carvedilol) 12.5 Mg Tablet 1 Tab PO BID Lisinopril 10 Mg Tablet 1 Tab PO DAILY Vitals/I & O Vital Sign - Last 24 Hours 12/06/18 12/06/18 12/06/18 12/06/18 11:00 16:40 17:22 18:02 Temp 99.3 98.8 99.3 98.8 Pulse 76 68 68 Resp 18 16 B/P (MAP) 148/70 (96) 131/55 (80) 131/55 Pulse Ox 94 97 97 O2 Delivery Nasal Cannula Nasal Cannula Nasal Cannula O2 Flow Rate 2.0 2.0 2.0 12/06/18 12/06/18 12/07/18 12/07/18 19:00 20:10 03:00 06:41 Temp 99.0 98.4 99.0 98.4 Pulse 68 57 Resp 18 18 B/P (MAP) 135/63 (87) 114/45 (68) Pulse Ox 96 98 98 O2 Delivery Nasal Cannula Nasal Cannula Nasal Cannula Nasal Cannula O2 Flow Rate 2.0 2.5 2.0 2.5 12/07/18 12/07/18 07:00 08:00 Temp 98.1 98.1 Pulse 63 Resp 18 B/P (MAP) 107/51 (69) Pulse Ox 96 96 O2 Delivery Room Air Nasal Cannula O2 Flow Rate 2.5 Intake and Output 12/06/18 12/06/18 12/07/18 15:00 23:00 07:00 Intake Total 120 ml Balance 120 ml IRAIS GUSTAFSON MD Dec 07, 2018 10:09
[2018-12-07] MEDS ORDERED: LIDOCAINE WITH 8.4% SOD BICARB 3 ML DISP.SYRIN. ONE ×2 (13:36→13:57)
[2018-12-07] MEDS ORDERED: IOHEXOL 240 MG/ML 50ML VIAL. ONE ×2 (13:36→13:57)
[2018-12-07] MEDS ORDERED: MIDAZOLAM HCL/PF 2 MG/2 ML VIAL. ONE (13:44)
[2018-12-07] MEDS ORDERED: fentaNYL PF VIAL 100 MCG/2 ML VIAL ONE (13:44)
[2018-12-07] MEDS ORDERED: IOHEXOL 300 MG/ML 50 ML VIAL. IART ONE (14:30)
[2018-12-07] MEDS ORDERED: LIDOCAINE WITH 8.4% SOD BICARB 3 ML DISP.SYRIN. IJ ONE (14:30)
[2018-12-07] MEDS ORDERED: MIDAZOLAM HCL/PF 2 MG/2 ML VIAL. IV ONE (14:30)
[2018-12-07] MEDS ORDERED: fentaNYL PF VIAL 100 MCG/2 ML VIAL IV ONE (14:30)
[2018-12-07] MEDS ORDERED: CONTRAST GIVEN. MC PRN (14:45)
--- NOTE | 2018-12-07 14:58 | NUR ---
SW following. Discussed with RN. Pt having a kyphoplasty today. SW met with pt to determine decision regarding DPOA/Healthcare. Pt would like it to be her sister, Barbara Alvarez ([phone]). [facility] filled out DPOA paperwork with pt, copies made to be given to pt after procedure. Copy placed on chart. RN notified. If pt is needing SNU, pt would like to go to [facility]. [facility] will continue to follow.
[2018-12-07] MEDS: SIMVASTATIN 20 MG TABLET PO SCH (22:34)
[2018-12-07] MEDS: FAMOTIDINE 20 MG TABLET. PO SCH (22:34)
[2018-12-08 03:00] VITALS: BP 134/53
[2018-12-08] MEDS: LEVOTHYROXINE 88 MCG TABLET PO SCH (06:13)
[2018-12-08 07:00] VITALS: BP 100/50
[2018-12-08] MEDS: CARVEDILOL 12.5 MG TABLET. PO SCH ×3 (08:00→17:44)
[2018-12-08] MEDS: LISINOPRIL 10 MG TABLET PO SCH ×2 (09:00→11:06)
[2018-12-08] MEDS: FUROSEMIDE 20 MG TABLET PO SCH ×2 (09:00→11:05)
[2018-12-08] MEDS: amLODIPine BESYLATE 5 MG TABLET PO SCH ×2 (09:00→11:04)
[2018-12-08] MEDS: POTASSIUM CHLORIDE 10 MEQ TABLET.ER. PO SCH (09:14)
[2018-12-08] MEDS: ASPIRIN ENTERIC COATED 81 MG TABLET.DR. PO SCH (09:14)
[2018-12-08] MEDS: CITALOPRAM 20 MG TABLET. PO SCH (09:14)
[2018-12-08 11:00] VITALS: BP 147/78
[2018-12-08] MEDS: ACETAMINOPHEN 325 MG TABLET. PO PRN (11:03)
--- NOTE | 2018-12-08 12:30 | RAD ---
Fluoroscopically guided kyphoplasty, L1 12/07/2018 Indication:L1 compression fracture, with severe pain limiting mobility refractory to conservative treatment measures. Fracture appears pathologic, secondary to bone demineralization Fluoroscopy time 11.3 MIN Dose area product 27 Gycm2 Moderate sedation: The patient was appropriately monitored by a qualified independent observer throughout the course of the moderate sedation. [id number] sedation time:45 minutes Consent: The risks and benefits of the procedure were discussed with the patient. Informed consent was obtained. The patient was brought to the fluoroscopy suite and placed in the prone position. A timeout procedure was performed. Preprocedural antibiotics were administered. Procedure: The overlying skin was prepped and draped in the usual sterile fashion. All elements of maximal sterile barrier technique including the use of a cap, mask, sterile gown, sterile gloves, large sterile sheet, appropriate hand hygiene, and 2% chlorhexidine for cutaneous antisepsis (or acceptable alternative antiseptic per current guidelines) were followed for this procedure. Using a left transpedicular approach, and direct fluoroscopic guidance, a trocar needle was advanced to the posterior third of the targeted vertebral body. Vertebral augmentation balloon was then coaxially introduced through the needle, into the more central vertebral body and was deployed. A curved cement delivery needle was advanced into the contralateral vertebral body. Contrast opacified polymethylmethacrylate was then very slowly and carefully introduced through the vertebral augmentation needle, using strict fluoroscopic control. Once adequate filling had been achieved the needles were removed and manual pressure was held. No significant extravasation or complication was identified. Sterile dressing was applied. Patient tolerated the procedure well, without apparent complication. Impression: Fluoroscopically guided kyphoplasty, L1
--- NOTE | 2018-12-08 12:54 | PDOC ---
PROGRESS NOTES Subjective Subjective No new complaints. Objective Objective Vital Signs Date Time Temp Pulse Resp B/P (MAP) Pulse Ox O2 Delivery O2 Flow Rate FiO2 12/08/18 11:06 75 147/68 12/08/18 11:00 97.8 18 98 Nasal Cannula 3.0 97.8 Intake and Output 12/08/18 07:00 Intake Total 200 ml Balance 200 ml Intake Oral 200 ml # Voids 2 Physical Exam Physical Exam She is awake but some confusion this AM,most probably delayed effect of anesthetic medicines used at kyphoplasty. She is walking with roller walker. Assessment Assessment Problems Medical Problems: (1) Intractable back pain Status: Acute Plan Plan of Care To SNF when medically stable. Comment Review of Relevant I have reviewed the following items mann (where applicable) has been applied. Labs Laboratory Tests Test 12/07/18 08:25 White Blood Count 9.2 x10^3/uL (4.0-11.0) Red Blood Count 3.73 x10^6/uL (3.50-5.40) Hemoglobin 11.4 g/dL (12.0-15.5) Hematocrit 35.0 % (36.0-47.0) Mean Corpuscular Volume 94 fL (79-100) Mean Corpuscular Hemoglobin 31 pg (25-35) Mean Corpuscular Hemoglobin Concent 33 g/dL (31-37) Red Cell Distribution Width 14.6 % (11.5-14.5) Platelet Count 146 x10^3/uL (140-400) Neutrophils (%) (Auto) 75 % (31-73) Lymphocytes (%) (Auto) 13 % (24-48) Monocytes (%) (Auto) 10 % (0-9) Eosinophils (%) (Auto) 2 % (0-3) Basophils (%) (Auto) 0 % (0-3) Neutrophils # (Auto) 6.9 x10^3uL (1.8-7.7) Lymphocytes # (Auto) 1.2 x10^3/uL (1.0-4.8) Monocytes # (Auto) 0.9 x10^3/uL (0.0-1.1) Eosinophils # (Auto) 0.2 x10^3/uL (0.0-0.7) Basophils # (Auto) 0.0 x10^3/uL (0.0-0.2) Prothrombin Time 14.0 SEC (11.7-14.0) Prothromb Time International Ratio 1.1 (0.8-1.1) Activated Partial Thromboplast Time 28 SEC (24-38) Sodium Level 140 mmol/L (136-145) Potassium Level 3.4 mmol/L (3.5-5.1) Chloride Level 101 mmol/L (98-107) Carbon Dioxide Level 34 mmol/L (21-32) Anion Gap 5 (6-14) Blood Urea Nitrogen 30 mg/dL (7-20) Creatinine 1.2 mg/dL (0.6-1.0) Estimated GFR (Cockcroft-Gault) 42.9 Glucose Level 96 mg/dL (70-99) Calcium Level 8.9 mg/dL (8.5-10.1) Microbiology 12/04/18 Urine Culture - Final, Complete 12/04/18 Urine Culture Result 1 (LAURA) - Final, Complete 12/04/18 Antimicrobic Susceptibility - Final, Complete Medications Current Medications Fentanyl Citrate (Fentanyl 2ml Vial) 50 mcg 1X ONCE IV Last administered on 12/04/18at 21:01; Start 12/04/18 at 20:45; Stop 12/04/18 at 20:46; Status DC Morphine Sulfate (Morphine Sulfate) 5 mg 1X ONCE IV Last administered on at 22:49; Start 12/04/18 at 22:30; Stop 12/04/18 at 22:31; Status DC Ondansetron HCl (Zofran) 4 mg PRN Q8HRS PRN IV NAUSEA/VOMITING Last administered on 12/05/18at 21:28; Start 12/05/18 at 03:00; Stop 12/06/18 at 02:59 ; Status DC Morphine Sulfate (Morphine Sulfate) 2 mg PRN Q2HR PRN IV PAIN Last administered on 12/05/18at 08:24; Start 12/05/18 at 03:00; Stop 12/06/18 at 02:59 ; Status DC Acetaminophen (Tylenol) 650 mg PRN Q4HRS PRN PO FEVER; Start 12/05/18 at 03:00 ; Stop 12/06/18 at 02:59; Status DC Polymyxin/ Trimethoprim Sulfate (Polytrim) 2 drop TID OU ; Start 12/05/18 at 09: 00; Stop 12/05/18 at 15:31; Status DC Albuterol Sulfate (Ventolin Neb Soln) 2.5 mg PRN Q6HRS PRN INH SHORTNESS OF BREATH; Start 12/05/18 at 12:30 Amlodipine Besylate (Norvasc) 5 mg DAILY PO Last administered on 12/08/18 11: 04; Start 12/05/18 at 13:00 Aspirin (Ecotrin) 81 mg DAILY PO Last administered on 12/08/18 09:14; Start at 13:00 Carvedilol (Coreg) 12.5 mg BIDWMEALS PO Last administered on 12/08/18 11:05; Start 12/05/18 at 17:00 Furosemide (Lasix) 20 mg DAILY PO Last administered on 12/08/18 11:05; Start 12/05/18 at 13:00 Levothyroxine Sodium (Synthroid) 88 mcg DAILY06 PO Last administered on 06:13; Start 12/05/18 at 13:00 Lisinopril (Prinivil) 10 mg DAILY PO Last administered on 12/08/18 11:06; Start 12/05/18 at 13:00 Potassium Chloride (Klor-Con) 10 meq DAILY PO Last administered on 12/08/18 09 :14; Start 12/05/18 at 13:00 Citalopram Hydrobromide (CeleXA) 40 mg DAILY PO Last administered on 12/08/18 09:14; Start 12/05/18 at 13:00 Non-Formulary Medication (Fluticasone/ Umeclidin/ Vilanter (Trelegy Ellipta 100- 62.5-25)) 1 each PRN PRN IH SHORTNESS OF BREATH; Start 12/05/18 at 12:30; Status UNV Famotidine (Pepcid) 40 mg QHS PO Last administered on 12/07/18 22:34; Start at 21:00 Simvastatin (Zocor) 20 mg HS PO Last administered on 12/07/18 22:34; Start 08/13 at 21:00 Prochlorperazine (Compazine) 25 mg PRN Q12HR PRN [place] NAUSEA/VOMITING Last administered on 2/10/19at 16:53; Start 12/05/18 at 16:30 Acetaminophen (Tylenol) 650 mg PRN Q4HRS PRN PO FEVER, HEADACHE Last administered on 12/08/18at 11:03; Start 12/06/18 at 08:00 Acetaminophen/ Hydrocodone Bitart (Lortab 5/325) 1 tab PRN Q4HRS PRN PO PAIN Last administered on 12/07/18at 22:34; Start 12/06/18 at 17:30 Lidocaine/Sodium Bicarbonate (Buffered Lidocaine 1%) 3 ml STK-MED ONCE .ROUTE ; Start 12/07/18 at 13:36; Stop 12/07/18 at 13:37; Status DC Iohexol (Omnipaque 240 Mg/ml) 50 ml STK-MED ONCE .ROUTE ; Start 12/07/18 at 13: 36; Stop 12/07/18 at 13:37; Status DC Cefazolin Sodium 50 ml @ As Directed STK-MED ONCE IV ; Start 12/07/18 at 13:44; Stop 12/07/18 at 13:45; Status DC Midazolam HCl (Versed) 2 mg STK-MED ONCE .ROUTE ; Start 12/07/18 at 13:44; Stop 12/07/18 at 13:45; Status DC Fentanyl Citrate (Fentanyl 2ml Vial) 100 mcg STK-MED ONCE .ROUTE ; Start at 13:44; Stop 12/07/18 at 13:45; Status DC Lidocaine/Sodium Bicarbonate (Buffered Lidocaine 1%) 3 ml STK-MED ONCE .ROUTE ; Start 12/07/18 at 13:57; Stop 12/07/18 at 13:58; Status DC Iohexol (Omnipaque 240 Mg/ml) 50 ml STK-MED ONCE .ROUTE ; Start 12/07/18 at 13: 57; Stop 12/07/18 at 13:58; Status DC Lidocaine/Sodium Bicarbonate (Buffered Lidocaine 1%) 12 ml 1X ONCE IJ Last administered on 12/07/18at 14:30; Start 12/07/18 at 14:30; Stop 12/07/18 at 14:31 ; Status DC Midazolam HCl (Versed) 2 mg 1X ONCE IV Last administered on 12/07/18at 14:30; Start 12/07/18 at 14:30; Stop 12/07/18 at 14:31; Status DC Fentanyl Citrate (Fentanyl 2ml Vial) 100 mcg 1X ONCE IV Last administered on at 14:30; Start 12/07/18 at 14:30; Stop 12/07/18 at 14:31; Status DC Iohexol (Omnipaque 300 Mg/ml) 50 ml 1X ONCE IART Last administered on at 14:30; Start 12/07/18 at 14:30; Stop 12/07/18 at 14:31; Status DC Info (CONTRAST GIVEN -- Rx MONITORING) 1 each PRN DAILY PRN MC SEE COMMENTS; Start 12/07/18 at 14:45; Stop 12/09/18 at 14:44 Active Scripts Active Amlodipine Besylate 5 Mg Tablet 5 Mg PO DAILY 30 Days Reported Proair Hfa (Albuterol Sulfate) 8.5 Gm Hfa.aer.ad 1 Puff INH PRN Q6HRS PRN Trelegy Ellipta 100-62.5-25 (Fluticasone/Umeclidin/Vilanter) 1 Each Blst.w.dev 1 Each IH PRN PRN Potassium Chloride 10 Meq Tab.sr.24h 10 Meq PO DAILY Lasix (Furosemide) 20 Mg Tablet 1 Tab PO DAILY Levothyroxine Sodium 88 Mcg Tablet 1 Tab PO DAILY Ranitidine Hcl 300 Mg Tablet 300 Mg PO DAILY Aspir 81 (Aspirin) 81 Mg Tablet.dr 1 Tab PO DAILY Escitalopram Oxalate 20 Mg Tablet 1 Tab PO DAILY Simvastatin 20 Mg Tablet 1 Tab PO QHS Carvedilol (Carvedilol) 12.5 Mg Tablet 1 Tab PO BID Lisinopril 10 Mg Tablet 1 Tab PO DAILY Vitals/I & O Vital Sign - Last 24 Hours 12/07/18 12/07/18 12/07/18 12/07/18 14:30 15:04 15:15 15:45 Pulse 82 71 Resp 14 15 B/P (MAP) 109/91 (97) Pulse Ox 91 91 91 99 O2 Delivery Nasal Cannula Nasal Cannula Nasal Cannula O2 Flow Rate 4.0 4.0 4.0 12/07/18 12/07/18 12/07/18 12/07/18 16:00 16:15 16:30 16:45 Pulse 72 67 62 68 B/P (MAP) 103/52 (69) 101/46 (64) 92/50 (64) 104/48 (66) Pulse Ox 98 99 99 99 12/07/18 12/07/18 12/07/18 12/07/18 17:15 19:00 19:45 22:34 Temp 98.7 98.7 Pulse 78 74 Resp 18 B/P (MAP) 103/49 (67) 127/55 (79) Pulse Ox 99 97 97 O2 Delivery Nasal Cannula Nasal Cannula Nasal Cannula O2 Flow Rate 3.0 3.0 3.0 12/07/18 12/07/18 12/08/18 12/08/18 23:00 23:35 03:00 07:00 Temp 98.5 98.3 97.8 98.5 98.3 97.8 Pulse 72 60 72 Resp 18 18 18 B/P (MAP) 85/66 (72) 134/53 (80) 100/50 (67) Pulse Ox 97 97 96 98 O2 Delivery Nasal Cannula Nasal Cannula Nasal Cannula Nasal Cannula O2 Flow Rate 3.0 3.0 3.0 3.0 12/08/18 12/08/18 12/08/18 12/08/18 08:00 11:00 11:04 11:05 Temp 97.8 97.8 Pulse 74 75 75 Resp 18 B/P (MAP) 147/78 (101) 147/68 147/68 Pulse Ox 98 O2 Delivery Nasal Cannula Nasal Cannula O2 Flow Rate 3.0 3.0 12/08/18 11:06 Pulse 75 B/P (MAP) 147/68 Intake and Output 12/07/18 12/07/18 12/08/18 15:00 23:00 07:00 Intake Total 200 ml Balance 200 ml ELSA MOSLEY MD Dec 08, 2018 12:54
--- NOTE | 2018-12-08 13:25 | PDOC ---
PROGRESS NOTES Chief Complaint Chief Complaint CC: Fall, L1 compression fracture 1. Degenerative spondylosis with stenosis greatest at L4-L5. 2. CAD, on plavix 3. GERD 4. Depression or anxiety, w/ insomnia, 5. N/V, 12/05 KUB nonobstructive bowel pattern 6. L4-L5, there is a broad-based right foraminal to extraforaminal disc protrusion superimposed on a disc bulge History of Present Illness History of Present Illness Pt is 83 y/o female who was admitted after a fall with a L1 compression fracture. She is s/p kyphoplasty, 12/07. Today she was seen and examined in her room. She is laying in her bed. Pt is confused today. She states she has been up and moving and was sitting in her chair this morning. Her pain had gotten worse while sitting but is better now that she is laying in bed. Spoke with her daughter and her RN. She is confused and hallucinating today. This is not her baseline. Discussed getting her to after she gets back to her baseline. She lives with her son. Daughter states they are working on getting her to an assisted living facility. RN says she has not had any pain meds since yesterday. Vitals Vitals Vital Signs Date Time Temp Pulse Resp B/P (MAP) Pulse Ox O2 Delivery O2 Flow Rate FiO2 12/08/18 11:06 75 147/68 12/08/18 11:00 97.8 18 98 Nasal Cannula 3.0 97.8 Physical Exam General: Alert, Cooperative, mild distress, Other (Confused, hallucinating ) Heart: Regular rate, No murmurs Lungs: Clear, Other (No wheezing or crackles) Abdomen: Normal bowel sounds, Soft, No tenderness, No hepatosplenomegaly Extremities: No cyanosis, No edema Skin: No rashes, No significant lesion Review of Systems Review of Systems Gen: confused, denies fever/chills Heart: denies CP, palpitations Lung: denies cough, SOA GI: denies pain, diarrhea Back: pain with sitting in chair Assessment and Plan Assessmemt and Plan Assessment CC: Fall, L1 compression fracture 1. S/p L1 kyphoplasty 12/07 2. Confusion, likely from anesthesia. Pain meds have been held since yesterday 3. Degenerative spondylosis with stenosis greatest at L4-L5. 4. CAD, on plavix 5. GERD 6. Depression or anxiety, w/ insomnia, 7. N/V, 12/05 KUB nonobstructive bowel pattern 8. L4-L5, there is a broad-based right foraminal to extraforaminal disc protrusion superimposed on a disc bulge Plan S/p L1 kyphoplasty on 12/07 Supportive treatment Follow labs PT/OT Home meds Appreciate subspecialist input Possible D/C to SNU after pt back to baseline Comment Review of Relevant I have reviewed the following items mann (where applicable) has been applied. Labs Laboratory Tests Test 12/07/18 08:25 White Blood Count 9.2 x10^3/uL (4.0-11.0) Red Blood Count 3.73 x10^6/uL (3.50-5.40) Hemoglobin 11.4 g/dL (12.0-15.5) Hematocrit 35.0 % (36.0-47.0) Mean Corpuscular Volume 94 fL (79-100) Mean Corpuscular Hemoglobin 31 pg (25-35) Mean Corpuscular Hemoglobin Concent 33 g/dL (31-37) Red Cell Distribution Width 14.6 % (11.5-14.5) Platelet Count 146 x10^3/uL (140-400) Neutrophils (%) (Auto) 75 % (31-73) Lymphocytes (%) (Auto) 13 % (24-48) Monocytes (%) (Auto) 10 % (0-9) Eosinophils (%) (Auto) 2 % (0-3) Basophils (%) (Auto) 0 % (0-3) Neutrophils # (Auto) 6.9 x10^3uL (1.8-7.7) Lymphocytes # (Auto) 1.2 x10^3/uL (1.0-4.8) Monocytes # (Auto) 0.9 x10^3/uL (0.0-1.1) Eosinophils # (Auto) 0.2 x10^3/uL (0.0-0.7) Basophils # (Auto) 0.0 x10^3/uL (0.0-0.2) Prothrombin Time 14.0 SEC (11.7-14.0) Prothromb Time International Ratio 1.1 (0.8-1.1) Activated Partial Thromboplast Time 28 SEC (24-38) Sodium Level 140 mmol/L (136-145) Potassium Level 3.4 mmol/L (3.5-5.1) Chloride Level 101 mmol/L (98-107) Carbon Dioxide Level 34 mmol/L (21-32) Anion Gap 5 (6-14) Blood Urea Nitrogen 30 mg/dL (7-20) Creatinine 1.2 mg/dL (0.6-1.0) Estimated GFR (Cockcroft-Gault) 42.9 Glucose Level 96 mg/dL (70-99) Calcium Level 8.9 mg/dL (8.5-10.1) Microbiology 12/04/18 Urine Culture - Final, Complete 12/04/18 Urine Culture Result 1 (LAURA) - Final, Complete 12/04/18 Antimicrobic Susceptibility - Final, Complete Medications Current Medications Fentanyl Citrate (Fentanyl 2ml Vial) 50 mcg 1X ONCE IV Last administered on 12/04/18at 21:01; Start 12/04/18 at 20:45; Stop 12/04/18 at 20:46; Status DC Morphine Sulfate (Morphine Sulfate) 5 mg 1X ONCE IV Last administered on at 22:49; Start 12/04/18 at 22:30; Stop 12/04/18 at 22:31; Status DC Ondansetron HCl (Zofran) 4 mg PRN Q8HRS PRN IV NAUSEA/VOMITING Last administered on 12/05/18at 21:28; Start 12/05/18 at 03:00; Stop 12/06/18 at 02:59 ; Status DC Morphine Sulfate (Morphine Sulfate) 2 mg PRN Q2HR PRN IV PAIN Last administered on 12/05/18at 08:24; Start 12/05/18 at 03:00; Stop 12/06/18 at 02:59 ; Status DC Acetaminophen (Tylenol) 650 mg PRN Q4HRS PRN PO FEVER; Start 12/05/18 at 03:00 ; Stop 12/06/18 at 02:59; Status DC Polymyxin/ Trimethoprim Sulfate (Polytrim) 2 drop TID OU ; Start 12/05/18 at 09: 00; Stop 12/05/18 at 15:31; Status DC Albuterol Sulfate (Ventolin Neb Soln) 2.5 mg PRN Q6HRS PRN INH SHORTNESS OF BREATH; Start 12/05/18 at 12:30 Amlodipine Besylate (Norvasc) 5 mg DAILY PO Last administered on 12/08/18 11: 04; Start 12/05/18 at 13:00 Aspirin (Ecotrin) 81 mg DAILY PO Last administered on 12/08/18 09:14; Start at 13:00 Carvedilol (Coreg) 12.5 mg BIDWMEALS PO Last administered on 12/08/18 11:05; Start 12/05/18 at 17:00 Furosemide (Lasix) 20 mg DAILY PO Last administered on 12/08/18 11:05; Start 12/05/18 at 13:00 Levothyroxine Sodium (Synthroid) 88 mcg DAILY06 PO Last administered on 06:13; Start 12/05/18 at 13:00 Lisinopril (Prinivil) 10 mg DAILY PO Last administered on 12/08/18 11:06; Start 12/05/18 at 13:00 Potassium Chloride (Klor-Con) 10 meq DAILY PO Last administered on 12/08/18 09 :14; Start 12/05/18 at 13:00 Citalopram Hydrobromide (CeleXA) 40 mg DAILY PO Last administered on 12/08/18 09:14; Start 12/05/18 at 13:00 Non-Formulary Medication (Fluticasone/ Umeclidin/ Vilanter (Trelegy Ellipta 100- 62.5-25)) 1 each PRN PRN IH SHORTNESS OF BREATH; Start 12/05/18 at 12:30; Status UNV Famotidine (Pepcid) 40 mg QHS PO Last administered on 12/07/18 22:34; Start at 21:00 Simvastatin (Zocor) 20 mg HS PO Last administered on 12/07/18 22:34; Start 08/13 at 21:00 Prochlorperazine (Compazine) 25 mg PRN Q12HR PRN [place] NAUSEA/VOMITING Last administered on 12/05/18 16:53; Start 12/05/18 at 16:30 Acetaminophen (Tylenol) 650 mg PRN Q4HRS PRN PO FEVER, HEADACHE Last administered on 12/08/18 11:03; Start 12/06/18 at 08:00 Acetaminophen/ Hydrocodone Bitart (Lortab 5/325) 1 tab PRN Q4HRS PRN PO PAIN Last administered on 12/07/18at 22:34; Start 12/06/18 at 17:30 Lidocaine/Sodium Bicarbonate (Buffered Lidocaine 1%) 3 ml STK-MED ONCE .ROUTE ; Start 12/07/18 at 13:36; Stop 12/07/18 at 13:37; Status DC Iohexol (Omnipaque 240 Mg/ml) 50 ml STK-MED ONCE .ROUTE ; Start 12/07/18 at 13: 36; Stop 12/07/18 at 13:37; Status DC Cefazolin Sodium 50 ml @ As Directed STK-MED ONCE IV ; Start 12/07/18 at 13:44; Stop 12/07/18 at 13:45; Status DC Midazolam HCl (Versed) 2 mg STK-MED ONCE .ROUTE ; Start 12/07/18 at 13:44; Stop 12/07/18 at 13:45; Status DC Fentanyl Citrate (Fentanyl 2ml Vial) 100 mcg STK-MED ONCE .ROUTE ; Start at 13:44; Stop 12/07/18 at 13:45; Status DC Lidocaine/Sodium Bicarbonate (Buffered Lidocaine 1%) 3 ml STK-MED ONCE .ROUTE ; Start 12/07/18 at 13:57; Stop 12/07/18 at 13:58; Status DC Iohexol (Omnipaque 240 Mg/ml) 50 ml STK-MED ONCE .ROUTE ; Start 12/07/18 at 13: 57; Stop 12/07/18 at 13:58; Status DC Lidocaine/Sodium Bicarbonate (Buffered Lidocaine 1%) 12 ml 1X ONCE IJ Last administered on 12/07/18at 14:30; Start 12/07/18 at 14:30; Stop 12/07/18 at 14:31 ; Status DC Midazolam HCl (Versed) 2 mg 1X ONCE IV Last administered on 12/07/18at 14:30; Start 12/07/18 at 14:30; Stop 12/07/18 at 14:31; Status DC Fentanyl Citrate (Fentanyl 2ml Vial) 100 mcg 1X ONCE IV Last administered on at 14:30; Start 12/07/18 at 14:30; Stop 12/07/18 at 14:31; Status DC Iohexol (Omnipaque 300 Mg/ml) 50 ml 1X ONCE IART Last administered on at 14:30; Start 12/07/18 at 14:30; Stop 12/07/18 at 14:31; Status DC Info (CONTRAST GIVEN -- Rx MONITORING) 1 each PRN DAILY PRN MC SEE COMMENTS; Start 12/07/18 at 14:45; Stop 12/09/18 at 14:44 Active Scripts Active Amlodipine Besylate 5 Mg Tablet 5 Mg PO DAILY 30 Days Reported Proair Hfa (Albuterol Sulfate) 8.5 Gm Hfa.aer.ad 1 Puff INH PRN Q6HRS PRN Trelegy Ellipta 100-62.5-25 (Fluticasone/Umeclidin/Vilanter) 1 Each Blst.w.dev 1 Each IH PRN PRN Potassium Chloride 10 Meq Tab.sr.24h 10 Meq PO DAILY Lasix (Furosemide) 20 Mg Tablet 1 Tab PO DAILY Levothyroxine Sodium 88 Mcg Tablet 1 Tab PO DAILY Ranitidine Hcl 300 Mg Tablet 300 Mg PO DAILY Aspir 81 (Aspirin) 81 Mg Tablet. 1 Tab PO DAILY Escitalopram Oxalate 20 Mg Tablet 1 Tab PO DAILY Simvastatin 20 Mg Tablet 1 Tab PO QHS Carvedilol (Carvedilol) 12.5 Mg Tablet 1 Tab PO BID Lisinopril 10 Mg Tablet 1 Tab PO DAILY Vitals/I & O Vital Sign - Last 24 Hours 12/07/18 12/07/18 12/07/18 12/07/18 14:30 15:04 15:15 15:45 Pulse 82 71 Resp 14 15 B/P (MAP) 109/91 (97) Pulse Ox 91 91 91 99 O2 Delivery Nasal Cannula Nasal Cannula Nasal Cannula O2 Flow Rate 4.0 4.0 4.0 12/07/18 12/07/18 12/07/18 12/07/18 16:00 16:15 16:30 16:45 Pulse 72 67 62 68 B/P (MAP) 103/52 (69) 101/46 (64) 92/50 (64) 104/48 (66) Pulse Ox 98 99 99 99 12/07/18 12/07/18 12/07/18 12/07/18 17:15 19:00 19:45 22:34 Temp 98.7 98.7 Pulse 78 74 Resp 18 B/P (MAP) 103/49 (67) 127/55 (79) Pulse Ox 99 97 97 O2 Delivery Nasal Cannula Nasal Cannula Nasal Cannula O2 Flow Rate 3.0 3.0 3.0 12/07/18 12/07/18 12/08/18 12/08/18 23:00 23:35 03:00 07:00 Temp 98.5 98.3 97.8 98.5 98.3 97.8 Pulse 72 60 72 Resp 18 18 18 B/P (MAP) 85/66 (72) 134/53 (80) 100/50 (67) Pulse Ox 97 97 96 98 O2 Delivery Nasal Cannula Nasal Cannula Nasal Cannula Nasal Cannula O2 Flow Rate 3.0 3.0 3.0 3.0 12/08/18 12/08/18 12/08/18 12/08/18 08:00 11:00 11:04 11:05 Temp 97.8 97.8 Pulse 74 75 75 Resp 18 B/P (MAP) 147/78 (101) 147/68 147/68 Pulse Ox 98 O2 Delivery Nasal Cannula Nasal Cannula O2 Flow Rate 3.0 3.0 12/08/18 11:06 Pulse 75 B/P (MAP) 147/68 Intake and Output 12/07/18 12/07/18 12/08/18 14:59 22:59 06:59 Intake Total 200 ml Balance 200 ml LIZ CASTILLO III DO Dec 08, 2018 13:25
--- NOTE | 2018-12-08 14:46 | NUR ---
SW following. Discussed with RN, pt is a little confused today. PT/OT recommending SNU. SW faxed referral to [facility]. SW will continue to follow.
[2018-12-08 15:00] VITALS: BP 107/47
[2018-12-08 19:00] VITALS: BP 110/56
[2018-12-08] MEDS: FAMOTIDINE 20 MG TABLET. PO SCH (20:39)
[2018-12-08] MEDS: SIMVASTATIN 20 MG TABLET PO SCH (20:39)
[2018-12-08 23:00] VITALS: BP 117/50
[2018-12-09 03:00] VITALS: BP 119/56
[2018-12-09 04:52] LABS: BASO % 0 % (0-3); EOS # 0.3 x10^3/uL (0.0-0.7); EOS % 4 % (0-3); HEMATOCRIT 32.3 % (36.0-47.0); HEMOGLOBIN 10.6 g/dL (12.0-15.5); LYMPH # 1.3 x10^3/uL (1.0-4.8); LYMPH % 20 % (24-48); MEAN CORPUSCULAR HEMOGLOBIN 30 pg (25-35); MEAN CORPUSCULAR HGB CONC 33 g/dL (31-37); MEAN CORPUSCULAR VOLUME 93 fL (79-100); MONO # 0.9 x10^3/uL (0.0-1.1); MONO % 14 % (0-9); NEUT # 4.3 x10^3uL (1.8-7.7); NEUT % 63 % (31-73); PLATELET COUNT 143 x10^3/uL (140-400); RED BLOOD COUNT 3.48 x10^6/uL (3.50-5.40); WHITE BLOOD COUNT 6.9 x10^3/uL (4.0-11.0)
[2018-12-09 05:07] LABS: CALCIUM 8.5 mg/dL (8.5-10.1); POTASSIUM 3.7 mmol/L (3.5-5.1)
[2018-12-09] MEDS: LEVOTHYROXINE 88 MCG TABLET PO SCH (05:57)
[2018-12-09 07:00] VITALS: BP 127/54
[2018-12-09] MEDS: CARVEDILOL 12.5 MG TABLET. PO SCH ×2 (08:59→17:35)
[2018-12-09] MEDS: CITALOPRAM 20 MG TABLET. PO SCH (08:59)
[2018-12-09] MEDS: ASPIRIN ENTERIC COATED 81 MG TABLET.DR. PO SCH (08:59)
[2018-12-09] MEDS: amLODIPine BESYLATE 5 MG TABLET PO SCH (09:00)
[2018-12-09] MEDS: POTASSIUM CHLORIDE 10 MEQ TABLET.ER. PO SCH (09:00)
[2018-12-09] MEDS: FUROSEMIDE 20 MG TABLET PO SCH (09:00)
[2018-12-09] MEDS: LISINOPRIL 10 MG TABLET PO SCH (09:00)
--- NOTE | 2018-12-09 10:23 | PDOC ---
PROGRESS NOTES Chief Complaint Chief Complaint CC: Fall, L1 compression fracture 1. Degenerative spondylosis with stenosis greatest at L4-L5. 2. CAD, on plavix 3. GERD 4. Depression or anxiety, w/ insomnia, 5. N/V, 12/05 KUB nonobstructive bowel pattern 6. L4-L5, there is a broad-based right foraminal to extraforaminal disc protrusion superimposed on a disc bulge 7. uti e-coli sen to cipro History of Present Illness History of Present Illness Pt is 83 y/o female who was admitted after a fall with a L1 compression fracture. She is s/p kyphoplasty, 12/07. Today she was seen and examined in her room. She is laying in her bed. Pt is confused today. She states she has been up and moving and was sitting in her chair this morning. Her pain had gotten worse while sitting but is better now that she is laying in bed. Spoke with her daughter and her RN. She is confused and hallucinating today. This is not her baseline. Discussed getting her to after she gets back to her baseline. She lives with her son. Daughter states they are working on getting her to an assisted living facility. RN says she has not had any pain meds since yesterday. Vitals Vitals Vital Signs Date Time Temp Pulse Resp B/P (MAP) Pulse Ox O2 Delivery O2 Flow Rate FiO2 12/09/18 09:00 73 127/54 12/09/18 07:00 97.6 16 96 Nasal Cannula 3.0 97.6 Physical Exam General: Alert, Oriented X3, Cooperative, mild distress, Other (Confused, hallucinating ) Heart: Regular rate, Normal S1, Normal S2, No murmurs Lungs: Clear, Other (No wheezing or crackles) Abdomen: Normal bowel sounds, Soft, No tenderness, No hepatosplenomegaly Extremities: No clubbing, No cyanosis, No edema Skin: No rashes, No significant lesion Labs LABS URINE CULTURE Final Final report URINE CULTURE RES 1 Final Hafnia alvei 25,000-50,000 colony forming units per mL ANTIMICROBIAL SUSCEPTIBILITY Final Comment S = Susceptible; I = Intermediate; R = Resistant P = Positive; N = Negative MICS are expressed in micrograms per mL Antibiotic RSLT#1 RSLT#2 RSLT#3 RSLT#4 Amoxicillin/Clavulanic Acid R>=32 Ampicillin R =R Cefazolin R>=64 Cefuroxime I =16 Ciprofloxacin S<=0.25 Gentamicin S<=1 Meropenem S<=0.25 Nitrofurantoin S<=16 Tetracycline I =8 Tobramycin S<=1 Performed at: DA - [facility] [address] [facility], [place], [place] [id number] [employer] Operator: ARTIE Zapien MD, Phone: [phone] Laboratory Tests Test 12/09/18 03:55 White Blood Count 6.9 x10^3/uL (4.0-11.0) Red Blood Count 3.48 x10^6/uL (3.50-5.40) Hemoglobin 10.6 g/dL (12.0-15.5) Hematocrit 32.3 % (36.0-47.0) Mean Corpuscular Volume 93 fL (79-100) Mean Corpuscular Hemoglobin 30 pg (25-35) Mean Corpuscular Hemoglobin Concent 33 g/dL (31-37) Red Cell Distribution Width 14.0 % (11.5-14.5) Platelet Count 143 x10^3/uL (140-400) Neutrophils (%) (Auto) 63 % (31-73) Lymphocytes (%) (Auto) 20 % (24-48) Monocytes (%) (Auto) 14 % (0-9) Eosinophils (%) (Auto) 4 % (0-3) Basophils (%) (Auto) 0 % (0-3) Neutrophils # (Auto) 4.3 x10^3uL (1.8-7.7) Lymphocytes # (Auto) 1.3 x10^3/uL (1.0-4.8) Monocytes # (Auto) 0.9 x10^3/uL (0.0-1.1) Eosinophils # (Auto) 0.3 x10^3/uL (0.0-0.7) Basophils # (Auto) 0.0 x10^3/uL (0.0-0.2) Sodium Level 139 mmol/L (136-145) Potassium Level 3.7 mmol/L (3.5-5.1) Chloride Level 100 mmol/L (98-107) Carbon Dioxide Level 33 mmol/L (21-32) Anion Gap 6 (6-14) Blood Urea Nitrogen 24 mg/dL (7-20) Creatinine 1.0 mg/dL (0.6-1.0) Estimated GFR (Cockcroft-Gault) 53.0 Glucose Level 80 mg/dL (70-99) Calcium Level 8.5 mg/dL (8.5-10.1) Assessment and Plan Assessmemt and Plan Problems Medical Problems: (1) Intractable back pain Status: Acute Comment Review of Relevant I have reviewed the following items mann (where applicable) has been applied. Labs Laboratory Tests Test 12/09/18 03:55 White Blood Count 6.9 x10^3/uL (4.0-11.0) Red Blood Count 3.48 x10^6/uL (3.50-5.40) Hemoglobin 10.6 g/dL (12.0-15.5) Hematocrit 32.3 % (36.0-47.0) Mean Corpuscular Volume 93 fL (79-100) Mean Corpuscular Hemoglobin 30 pg (25-35) Mean Corpuscular Hemoglobin Concent 33 g/dL (31-37) Red Cell Distribution Width 14.0 % (11.5-14.5) Platelet Count 143 x10^3/uL (140-400) Neutrophils (%) (Auto) 63 % (31-73) Lymphocytes (%) (Auto) 20 % (24-48) Monocytes (%) (Auto) 14 % (0-9) Eosinophils (%) (Auto) 4 % (0-3) Basophils (%) (Auto) 0 % (0-3) Neutrophils # (Auto) 4.3 x10^3uL (1.8-7.7) Lymphocytes # (Auto) 1.3 x10^3/uL (1.0-4.8) Monocytes # (Auto) 0.9 x10^3/uL (0.0-1.1) Eosinophils # (Auto) 0.3 x10^3/uL (0.0-0.7) Basophils # (Auto) 0.0 x10^3/uL (0.0-0.2) Sodium Level 139 mmol/L (136-145) Potassium Level 3.7 mmol/L (3.5-5.1) Chloride Level 100 mmol/L (98-107) Carbon Dioxide Level 33 mmol/L (21-32) Anion Gap 6 (6-14) Blood Urea Nitrogen 24 mg/dL (7-20) Creatinine 1.0 mg/dL (0.6-1.0) Estimated GFR (Cockcroft-Gault) 53.0 Glucose Level 80 mg/dL (70-99) Calcium Level 8.5 mg/dL (8.5-10.1) Laboratory Tests Test 12/09/18 03:55 White Blood Count 6.9 x10^3/uL (4.0-11.0) Red Blood Count 3.48 x10^6/uL (3.50-5.40) Hemoglobin 10.6 g/dL (12.0-15.5) Hematocrit 32.3 % (36.0-47.0) Mean Corpuscular Volume 93 fL (79-100) Mean Corpuscular Hemoglobin 30 pg (25-35) Mean Corpuscular Hemoglobin Concent 33 g/dL (31-37) Red Cell Distribution Width 14.0 % (11.5-14.5) Platelet Count 143 x10^3/uL (140-400) Neutrophils (%) (Auto) 63 % (31-73) Lymphocytes (%) (Auto) 20 % (24-48) Monocytes (%) (Auto) 14 % (0-9) Eosinophils (%) (Auto) 4 % (0-3) Basophils (%) (Auto) 0 % (0-3) Neutrophils # (Auto) 4.3 x10^3uL (1.8-7.7) Lymphocytes # (Auto) 1.3 x10^3/uL (1.0-4.8) Monocytes # (Auto) 0.9 x10^3/uL (0.0-1.1) Eosinophils # (Auto) 0.3 x10^3/uL (0.0-0.7) Basophils # (Auto) 0.0 x10^3/uL (0.0-0.2) Sodium Level 139 mmol/L (136-145) Potassium Level 3.7 mmol/L (3.5-5.1) Chloride Level 100 mmol/L (98-107) Carbon Dioxide Level 33 mmol/L (21-32) Anion Gap 6 (6-14) Blood Urea Nitrogen 24 mg/dL (7-20) Creatinine 1.0 mg/dL (0.6-1.0) Estimated GFR (Cockcroft-Gault) 53.0 Glucose Level 80 mg/dL (70-99) Calcium Level 8.5 mg/dL (8.5-10.1) Microbiology 12/04/18 Urine Culture - Final, Complete 12/04/18 Urine Culture Result 1 (LAURA) - Final, Complete 12/04/18 Antimicrobic Susceptibility - Final, Complete Medications Current Medications Fentanyl Citrate (Fentanyl 2ml Vial) 50 mcg 1X ONCE IV Last administered on 12/04/18at 21:01; Start 12/04/18 at 20:45; Stop 12/04/18 at 20:46; Status DC Morphine Sulfate (Morphine Sulfate) 5 mg 1X ONCE IV Last administered on at 22:49; Start 12/04/18 at 22:30; Stop 12/04/18 at 22:31; Status DC Ondansetron HCl (Zofran) 4 mg PRN Q8HRS PRN IV NAUSEA/VOMITING Last administered on 12/05/18at 21:28; Start 12/05/18 at 03:00; Stop 12/06/18 at 02:59 ; Status DC Morphine Sulfate (Morphine Sulfate) 2 mg PRN Q2HR PRN IV PAIN Last administered on 12/05/18at 08:24; Start 12/05/18 at 03:00; Stop 12/06/18 at 02:59 ; Status DC Acetaminophen (Tylenol) 650 mg PRN Q4HRS PRN PO FEVER; Start 12/05/18 at 03:00 ; Stop 12/06/18 at 02:59; Status DC Polymyxin/ Trimethoprim Sulfate (Polytrim) 2 drop TID OU ; Start 12/05/18 at 09: 00; Stop 12/05/18 at 15:31; Status DC Albuterol Sulfate (Ventolin Neb Soln) 2.5 mg PRN Q6HRS PRN INH SHORTNESS OF BREATH; Start 12/05/18 at 12:30 Amlodipine Besylate (Norvasc) 5 mg DAILY PO Last administered on 12/08/18 11: 04; Start 12/05/18 at 13:00 Aspirin (Ecotrin) 81 mg DAILY PO Last administered on 12/09/18 08:59; Start at 13:00 Carvedilol (Coreg) 12.5 mg BIDWMEALS PO Last administered on 12/09/18 08:59; Start 12/05/18 at 17:00 Furosemide (Lasix) 20 mg DAILY PO Last administered on 12/09/18 09:00; Start 12/05/18 at 13:00 Levothyroxine Sodium (Synthroid) 88 mcg DAILY06 PO Last administered on 05:57; Start 12/05/18 at 13:00 Lisinopril (Prinivil) 10 mg DAILY PO Last administered on 12/08/18 11:06; Start 12/05/18 at 13:00 Potassium Chloride (Klor-Con) 10 meq DAILY PO Last administered on 12/09/18 09 :00; Start 12/05/18 at 13:00 Citalopram Hydrobromide (CeleXA) 40 mg DAILY PO Last administered on 12/09/18 08:59; Start 12/05/18 at 13:00 Non-Formulary Medication (Fluticasone/ Umeclidin/ Vilanter (Trelegy Ellipta 100- 62.5-25)) 1 each PRN PRN IH SHORTNESS OF BREATH; Start 12/05/18 at 12:30; Status UNV Famotidine (Pepcid) 40 mg QHS PO Last administered on 12/08/18 20:39; Start at 21:00 Simvastatin (Zocor) 20 mg HS PO Last administered on 12/08/18 20:39; Start 08/13 at 21:00 Prochlorperazine (Compazine) 25 mg PRN Q12HR PRN CO NAUSEA/VOMITING Last administered on 12/05/18 16:53; Start 12/05/18 at 16:30 Acetaminophen (Tylenol) 650 mg PRN Q4HRS PRN PO FEVER, HEADACHE Last administered on 2/13/19at 11:03; Start 12/06/18 at 08:00 Acetaminophen/ Hydrocodone Bitart (Lortab 5/325) 1 tab PRN Q4HRS PRN PO PAIN Last administered on 12/07/18at 22:34; Start 12/06/18 at 17:30 Lidocaine/Sodium Bicarbonate (Buffered Lidocaine 1%) 3 ml STK-MED ONCE .ROUTE ; Start 12/07/18 at 13:36; Stop 12/07/18 at 13:37; Status DC Iohexol (Omnipaque 240 Mg/ml) 50 ml STK-MED ONCE .ROUTE ; Start 12/07/18 at 13: 36; Stop 12/07/18 at 13:37; Status DC Cefazolin Sodium 50 ml @ As Directed STK-MED ONCE IV ; Start 12/07/18 at 13:44; Stop 12/07/18 at 13:45; Status DC Midazolam HCl (Versed) 2 mg STK-MED ONCE .ROUTE ; Start 12/07/18 at 13:44; Stop 12/07/18 at 13:45; Status DC Fentanyl Citrate (Fentanyl 2ml Vial) 100 mcg STK-MED ONCE .ROUTE ; Start at 13:44; Stop 12/07/18 at 13:45; Status DC Lidocaine/Sodium Bicarbonate (Buffered Lidocaine 1%) 3 ml STK-MED ONCE .ROUTE ; Start 12/07/18 at 13:57; Stop 12/07/18 at 13:58; Status DC Iohexol (Omnipaque 240 Mg/ml) 50 ml STK-MED ONCE .ROUTE ; Start 12/07/18 at 13: 57; Stop 12/07/18 at 13:58; Status DC Lidocaine/Sodium Bicarbonate (Buffered Lidocaine 1%) 12 ml 1X ONCE IJ Last administered on 12/07/18at 14:30; Start 12/07/18 at 14:30; Stop 12/07/18 at 14:31 ; Status DC Midazolam HCl (Versed) 2 mg 1X ONCE IV Last administered on 12/07/18at 14:30; Start 12/07/18 at 14:30; Stop 12/07/18 at 14:31; Status DC Fentanyl Citrate (Fentanyl 2ml Vial) 100 mcg 1X ONCE IV Last administered on at 14:30; Start 12/07/18 at 14:30; Stop 12/07/18 at 14:31; Status DC Iohexol (Omnipaque 300 Mg/ml) 50 ml 1X ONCE IART Last administered on at 14:30; Start 12/07/18 at 14:30; Stop 12/07/18 at 14:31; Status DC Info (CONTRAST GIVEN -- Rx MONITORING) 1 each PRN DAILY PRN MC SEE COMMENTS; Start 12/07/18 at 14:45; Stop 12/09/18 at 14:44 Active Scripts Active Amlodipine Besylate 5 Mg Tablet 5 Mg PO DAILY 30 Days Reported Proair Hfa (Albuterol Sulfate) 8.5 Gm Hfa.aer.ad 1 Puff INH PRN Q6HRS PRN Trelegy Ellipta 100-62.5-25 (Fluticasone/Umeclidin/Vilanter) 1 Each Blst.w.dev 1 Each IH PRN PRN Potassium Chloride 10 Meq Tab.sr.24h 10 Meq PO DAILY Lasix (Furosemide) 20 Mg Tablet 1 Tab PO DAILY Levothyroxine Sodium 88 Mcg Tablet 1 Tab PO DAILY Ranitidine Hcl 300 Mg Tablet 300 Mg PO DAILY Aspir 81 (Aspirin) 81 Mg Tablet.dr 1 Tab PO DAILY Escitalopram Oxalate 20 Mg Tablet 1 Tab PO DAILY Simvastatin 20 Mg Tablet 1 Tab PO QHS Carvedilol (Carvedilol) 12.5 Mg Tablet 1 Tab PO BID Lisinopril 10 Mg Tablet 1 Tab PO DAILY Vitals/I & O Vital Sign - Last 24 Hours 12/08/18 12/08/18 12/08/18 12/08/18 11:00 11:04 11:05 11:06 Temp 97.8 97.8 Pulse 74 75 75 75 Resp 18 B/P (MAP) 147/78 (101) 147/68 147/68 147/68 Pulse Ox 98 O2 Delivery Nasal Cannula O2 Flow Rate 3.0 12/08/18 12/08/18 12/08/18 12/08/18 15:00 17:44 19:00 20:00 Temp 98.6 97.9 98.6 97.9 Pulse 72 72 68 Resp 16 16 B/P (MAP) 107/47 (67) 107/47 110/56 (74) Pulse Ox 97 97 O2 Delivery Nasal Cannula Nasal Cannula Nasal Cannula O2 Flow Rate 3.0 3.0 3.0 12/08/18 12/09/18 12/09/18 12/09/18 23:00 03:00 07:00 08:59 Temp 97.3 99.0 97.6 97.3 99.0 97.6 Pulse 68 74 73 73 Resp 16 16 16 B/P (MAP) 117/50 (72) 119/56 (77) 127/54 (78) 127/54 Pulse Ox 97 96 96 O2 Delivery Nasal Cannula Nasal Cannula Nasal Cannula O2 Flow Rate 3.0 3.0 3.0 12/09/18 12/09/18 09:00 09:00 Pulse 73 73 B/P (MAP) 127/54 127/54 Intake and Output 12/08/18 12/08/18 12/09/18 15:00 23:00 07:00 Intake Total 120 ml Balance 120 ml IRAIS GUSTAFSON MD Dec 09, 2018 10:23
[2018-12-09 11:00] VITALS: BP 121/45
[2018-12-09] MEDS: MAGNESIUM HYDROXIDE 2,400 MG/30 ML ORAL.SUSP. PO PRN (11:37)
--- NOTE | 2018-12-09 12:06 | NUR ---
SW following. Pt has been accepted at [facility]. RN advised pt was alert and oriented this morning however pt seemed confused and possibly hallucinating a little when SW met with pt. TITI contacted pt's son Froy ([phone]) who advised pt is not normally confused. [facility] requested pt bring the inhaler Treligy Ellippa from home. Froy reported he can bring this by to the hospital before pt goes to [facility]. RN notified about pt's confusion and agreed with SW that pt is now having some confusion again. SW will continue to follow.
[2018-12-09] MEDS ORDERED: CIPR250T30 PO (13:45)
--- NOTE | 2018-12-09 13:47 | DISCH ---
DISCHARGE DISCHARGE INFORMATION: FINAL DIAGNOSIS Problems Medical Problems: (1) Intractable back pain Status: Acute CONDITION ON DISCHARGE: Stable CODE STATUS: Code Status: DNR/DNI NURSING HOME: SNF STAY <30 DAYS: Yes HOSPICE: HOSPICE: No HOSPICE EVAL & TREAT: No LTAC: ADMIT TO LTAC: No POST DISCHARGE ORDERS: ACTIVITY ORDERS: Activity as tolerated WEIGHT BEARING STATUS: Other, see below BATHING ORDERS: Shower-keep dressing dry, No Tub Bath until see CHECKS AFTER DISCHARGE: CHECKS AFTER DISCHARGE: Check blood press - daily TREATMENT/EQUIPMENT ORDERS: Physical Therapy For: Evalulation/Treatment Occupational Therapy For: Evaluation/Treatment Speech Language Pathology For: Evaluation/Treatment DISCHARGE MEDICATIONS: Home Meds Active Scripts Ciprofloxacin Hcl (CIPRO) 250 Mg Tablet, 1 TAB PO BID for uti for 10 Days, #20 TAB Prov:IRAIS GUSTAFSON MD 12/09/18 Amlodipine Besylate (AMLODIPINE BESYLATE) 5 Mg Tablet, 5 MG PO DAILY for 30 Days , #30 TAB 1 Refill Prov:MATT YU MD 05/24/18 Reported Medications Albuterol Sulfate (Proair Hfa) 8.5 Gm Hfa.aer.ad, 1 PUFF INH PRN Q6HRS PRN for SHORTNESS OF BREATH, INHALER 12/05/18 Fluticasone/Umeclidin/Vilanter (Trelegy Ellipta 100-62.5-25) 1 Each Blst.w.dev, 1 EACH IH PRN PRN for SHORTNESS OF BREATH 12/05/18 Potassium Chloride (POTASSIUM CHLORIDE) 10 Meq Tab.sr.24h, 10 MEQ PO DAILY for replacement, TAB.SR 12/05/18 Furosemide (LASIX) 20 Mg Tablet, 1 TAB PO DAILY for htn, #90 TAB 1 Refill 12/05/18 Levothyroxine Sodium (LEVOTHYROXINE SODIUM) 88 Mcg Tablet, 1 TAB PO DAILY, #30 TAB 5 Refills 05/21/18 Ranitidine Hcl (RANITIDINE HCL) 300 Mg Tablet, 300 MG PO DAILY, TAB 05/21/18 Aspirin (ASPIR 81) 81 Mg Tablet.dr, 1 TAB PO DAILY, #30 TAB 5 Refills 05/08/16 Escitalopram Oxalate (ESCITALOPRAM OXALATE) 20 Mg Tablet, 1 TAB PO DAILY, #30 TAB 5 Refills 01/11/16 Simvastatin (SIMVASTATIN) 20 Mg Tablet, 1 TAB PO QHS, #90 TAB 3 Refills 01/11/16 Carvedilol (CARVEDILOL ) 12.5 Mg Tablet, 1 TAB PO BID, #180 TAB 1 Refill 01/11/16 Lisinopril (LISINOPRIL) 10 Mg Tablet, 1 TAB PO DAILY, #30 TAB 5 Refills 01/11/16 IRAIS GUSTAFSON MD Dec 09, 2018 13:47
--- NOTE | 2018-12-09 13:51 | PDOC3 ---
Discharge Summary Date of Admission: Dec 05, 2018 Date of Discharge: Dec 09, 2018 Follow-Up: 1-2 days Admitting Diagnosis comment: DISCHARGE DX Chief Complaint CC: Fall, L1 compression fracture 1. Degenerative spondylosis with stenosis greatest at L4-L5. 2. CAD, on plavix 3. GERD 4. Depression or anxiety, w/ insomnia, 5. N/V, 12/05 KUB nonobstructive bowel pattern 6. L4-L5, there is a broad-based right foraminal to extraforaminal disc protrusion superimposed on a disc bulge 7. uti e-coli sen to cipro History of Present Illness History of Present Illness Pt is 83 y/o female who was admitted after a fall with a L1 compression fracture. She is s/p kyphoplasty, 12/07. Today she was seen and examined in her room. She is laying in her bed. Pt is less confused. She states she has been up and moving and was sitting in her chair this morning. Her pain had gotten worse while sitting but is better now that she is laying in bed. Spoke with her daughter and her RN. This is not her baseline. Discussed getting her to PP after she gets back to her baseline. She lives with her son. Daughter states they are working on getting her to an assisted living facility. RN says she has not had any pain meds since yesterday.uti noted Vitals Vitals Vital Signs Date Time Temp Pulse Resp B/P (MAP) Pulse Ox O2 Delivery O2 Flow Rate FiO2 12/09/18 09:00 73 127/54 12/09/18 07:00 97.6 16 96 Nasal Cannula 3.0 97.6 Physical Exam General: Alert, Oriented X3, Cooperative, mild distress, Other (Confused, hallucinating ) Heart: Regular rate, Normal S1, Normal S2, No murmurs Lungs: Clear, Other (No wheezing or crackles) Abdomen: Normal bowel sounds, Soft, No tenderness, No hepatosplenomegaly Extremities: No clubbing, No cyanosis, No edema Skin: No rashes, No significant lesion Labs LABS URINE CULTURE Final Final report URINE CULTURE RES 1 Final Hafnia alvei 25,000-50,000 colony forming units per mL ANTIMICROBIAL SUSCEPTIBILITY Final Comment S = Susceptible; I = Intermediate; R = Resistant P = Positive; N = Negative MICS are expressed in micrograms per mL Antibiotic RSLT#1 RSLT#2 RSLT#3 RSLT#4 Amoxicillin/Clavulanic Acid R>=32 Ampicillin R =R Cefazolin R>=64 Cefuroxime I =16 Ciprofloxacin S<=0.25 Gentamicin S<=1 Meropenem S<=0.25 Nitrofurantoin S<=16 Tetracycline I =8 Tobramycin S<=1 Performed at: - [facility] [address] [facility] [address], [place], [place] [id number] [employer] Pin Assembling Machine Operator: ARTIE Zapien MD, Phone: [phone] FINAL DIAGNOSIS Problems Medical Problems: (1) Intractable back pain Status: Acute Brief Hospital Course Ms. Solano is a 83 old [sex] who presented with [ L1 FX UTI] CONDITION AT DISCHARGE: Improved Discharge Medications Current Medications Fentanyl Citrate (Fentanyl 2ml Vial) 50 mcg 1X ONCE IV Last administered on 12/04/18at 21:01; Start 12/04/18 at 20:45; Stop 12/04/18 at 20:46; Status DC Morphine Sulfate (Morphine Sulfate) 5 mg 1X ONCE IV Last administered on at 22:49; Start 12/04/18 at 22:30; Stop 12/04/18 at 22:31; Status DC Ondansetron HCl (Zofran) 4 mg PRN Q8HRS PRN IV NAUSEA/VOMITING Last administered on 12/05/18at 21:28; Start 12/05/18 at 03:00; Stop 12/06/18 at 02:59 ; Status DC Morphine Sulfate (Morphine Sulfate) 2 mg PRN Q2HR PRN IV PAIN Last administered on 12/05/18at 08:24; Start 12/05/18 at 03:00; Stop 12/06/18 at 02:59 ; Status DC Acetaminophen (Tylenol) 650 mg PRN Q4HRS PRN PO FEVER; Start 12/05/18 at 03:00 ; Stop 12/06/18 at 02:59; Status DC Polymyxin/ Trimethoprim Sulfate (Polytrim) 2 drop TID OU ; Start 12/05/18 at 09: 00; Stop 12/05/18 at 15:31; Status DC Albuterol Sulfate (Ventolin Neb Soln) 2.5 mg PRN Q6HRS PRN INH SHORTNESS OF BREATH; Start 12/05/18 at 12:30 Amlodipine Besylate (Norvasc) 5 mg DAILY PO Last administered on 12/08/18 11: 04; Start 12/05/18 at 13:00 Aspirin (Ecotrin) 81 mg DAILY PO Last administered on 12/09/18 08:59; Start at 13:00 Carvedilol (Coreg) 12.5 mg BIDWMEALS PO Last administered on 12/09/18 08:59; Start 12/05/18 at 17:00 Furosemide (Lasix) 20 mg DAILY PO Last administered on 12/09/18 09:00; Start 12/05/18 at 13:00 Levothyroxine Sodium (Synthroid) 88 mcg DAILY06 PO Last administered on 05:57; Start 12/05/18 at 13:00 Lisinopril (Prinivil) 10 mg DAILY PO Last administered on 12/08/18 11:06; Start 12/05/18 at 13:00 Potassium Chloride (Klor-Con) 10 meq DAILY PO Last administered on 12/09/18 09 :00; Start 12/05/18 at 13:00 Citalopram Hydrobromide (CeleXA) 40 mg DAILY PO Last administered on 12/09/18 08:59; Start 12/05/18 at 13:00 Non-Formulary Medication (Fluticasone/ Umeclidin/ Vilanter (Trelegy Ellipta 100- 62.5-25)) 1 each PRN PRN IH SHORTNESS OF BREATH; Start 12/05/18 at 12:30; Status UNV Famotidine (Pepcid) 40 mg QHS PO Last administered on 2/13/19at 20:39; Start at 21:00 Simvastatin (Zocor) 20 mg HS PO Last administered on 12/08/18 20:39; Start 08/13 at 21:00 Prochlorperazine (Compazine) 25 mg PRN Q12HR PRN [place] NAUSEA/VOMITING Last administered on 12/05/18 16:53; Start 12/05/18 at 16:30 Acetaminophen (Tylenol) 650 mg PRN Q4HRS PRN PO FEVER, HEADACHE Last administered on 12/08/18at 11:03; Start 12/06/18 at 08:00 Acetaminophen/ Hydrocodone Bitart (Lortab 5/325) 1 tab PRN Q4HRS PRN PO PAIN Last administered on 12/07/18 22:34; Start 12/06/18 at 17:30 Lidocaine/Sodium Bicarbonate (Buffered Lidocaine 1%) 3 ml STK-MED ONCE .ROUTE ; Start 12/07/18 at 13:36; Stop 12/07/18 at 13:37; Status DC Iohexol (Omnipaque 240 Mg/ml) 50 ml STK-MED ONCE .ROUTE ; Start 12/07/18 at 13: 36; Stop 12/07/18 at 13:37; Status DC Cefazolin Sodium 50 ml @ As Directed STK-MED ONCE IV ; Start 12/07/18 at 13:44; Stop 12/07/18 at 13:45; Status DC Midazolam HCl (Versed) 2 mg STK-MED ONCE .ROUTE ; Start 12/07/18 at 13:44; Stop 12/07/18 at 13:45; Status DC Fentanyl Citrate (Fentanyl 2ml Vial) 100 mcg STK-MED ONCE .ROUTE ; Start at 13:44; Stop 12/07/18 at 13:45; Status DC Lidocaine/Sodium Bicarbonate (Buffered Lidocaine 1%) 3 ml STK-MED ONCE .ROUTE ; Start 12/07/18 at 13:57; Stop 12/07/18 at 13:58; Status DC Iohexol (Omnipaque 240 Mg/ml) 50 ml STK-MED ONCE .ROUTE ; Start 12/07/18 at 13: 57; Stop 12/07/18 at 13:58; Status DC Lidocaine/Sodium Bicarbonate (Buffered Lidocaine 1%) 12 ml 1X ONCE IJ Last administered on 12/07/18at 14:30; Start 12/07/18 at 14:30; Stop 12/07/18 at 14:31 ; Status DC Midazolam HCl (Versed) 2 mg 1X ONCE IV Last administered on 12/07/18at 14:30; Start 12/07/18 at 14:30; Stop 12/07/18 at 14:31; Status DC Fentanyl Citrate (Fentanyl 2ml Vial) 100 mcg 1X ONCE IV Last administered on at 14:30; Start 12/07/18 at 14:30; Stop 12/07/18 at 14:31; Status DC Iohexol (Omnipaque 300 Mg/ml) 50 ml 1X ONCE IART Last administered on at 14:30; Start 12/07/18 at 14:30; Stop 12/07/18 at 14:31; Status DC Info (CONTRAST GIVEN -- Rx MONITORING) 1 each PRN DAILY PRN MC SEE COMMENTS; Start 12/07/18 at 14:45; Stop 12/09/18 at 14:44 Magnesium Hydroxide (Milk Of Magnesia) 2,400 mg PRN DAILY PRN PO CONSTIPATION Last administered on 12/09/18at 11:37; Start 12/09/18 at 10:45 Ciprofloxacin (Cipro) 250 mg BID PO ; Start 12/09/18 at 21:00; Status UNV Active Scripts Active Cipro (Ciprofloxacin Hcl) 250 Mg Tablet 1 Tab PO BID 10 Days Amlodipine Besylate 5 Mg Tablet 5 Mg PO DAILY 30 Days Reported Proair Hfa (Albuterol Sulfate) 8.5 Gm Hfa.aer.ad 1 Puff INH PRN Q6HRS PRN Trelegy Ellipta 100-62.5-25 (Fluticasone/Umeclidin/Vilanter) 1 Each Blst.w.dev 1 Each IH PRN PRN Potassium Chloride 10 Meq Tab.sr.24h 10 Meq PO DAILY Lasix (Furosemide) 20 Mg Tablet 1 Tab PO DAILY Levothyroxine Sodium 88 Mcg Tablet 1 Tab PO DAILY Ranitidine Hcl 300 Mg Tablet 300 Mg PO DAILY Aspir 81 (Aspirin) 81 Mg Tablet.dr 1 Tab PO DAILY Escitalopram Oxalate 20 Mg Tablet 1 Tab PO DAILY Simvastatin 20 Mg Tablet 1 Tab PO QHS Carvedilol (Carvedilol) 12.5 Mg Tablet 1 Tab PO BID Lisinopril 10 Mg Tablet 1 Tab PO DAILY Vital Signs Vital Signs Date Time Temp Pulse Resp B/P (MAP) Pulse Ox O2 Delivery O2 Flow Rate FiO2 12/09/18 11:00 98.7 68 16 121/45 (70) 98 Nasal Cannula 3.0 98.7 Labs Laboratory Tests Test 12/09/18 03:55 White Blood Count 6.9 x10^3/uL (4.0-11.0) Red Blood Count 3.48 x10^6/uL (3.50-5.40) Hemoglobin 10.6 g/dL (12.0-15.5) Hematocrit 32.3 % (36.0-47.0) Mean Corpuscular Volume 93 fL (79-100) Mean Corpuscular Hemoglobin 30 pg (25-35) Mean Corpuscular Hemoglobin Concent 33 g/dL (31-37) Red Cell Distribution Width 14.0 % (11.5-14.5) Platelet Count 143 x10^3/uL (140-400) Neutrophils (%) (Auto) 63 % (31-73) Lymphocytes (%) (Auto) 20 % (24-48) Monocytes (%) (Auto) 14 % (0-9) Eosinophils (%) (Auto) 4 % (0-3) Basophils (%) (Auto) 0 % (0-3) Neutrophils # (Auto) 4.3 x10^3uL (1.8-7.7) Lymphocytes # (Auto) 1.3 x10^3/uL (1.0-4.8) Monocytes # (Auto) 0.9 x10^3/uL (0.0-1.1) Eosinophils # (Auto) 0.3 x10^3/uL (0.0-0.7) Basophils # (Auto) 0.0 x10^3/uL (0.0-0.2) Sodium Level 139 mmol/L (136-145) Potassium Level 3.7 mmol/L (3.5-5.1) Chloride Level 100 mmol/L (98-107) Carbon Dioxide Level 33 mmol/L (21-32) Anion Gap 6 (6-14) Blood Urea Nitrogen 24 mg/dL (7-20) Creatinine 1.0 mg/dL (0.6-1.0) Estimated GFR (Cockcroft-Gault) 53.0 Glucose Level 80 mg/dL (70-99) Calcium Level 8.5 mg/dL (8.5-10.1) Laboratory Tests Test 12/09/18 03:55 White Blood Count 6.9 x10^3/uL (4.0-11.0) Red Blood Count 3.48 x10^6/uL (3.50-5.40) Hemoglobin 10.6 g/dL (12.0-15.5) Hematocrit 32.3 % (36.0-47.0) Mean Corpuscular Volume 93 fL (79-100) Mean Corpuscular Hemoglobin 30 pg (25-35) Mean Corpuscular Hemoglobin Concent 33 g/dL (31-37) Red Cell Distribution Width 14.0 % (11.5-14.5) Platelet Count 143 x10^3/uL (140-400) Neutrophils (%) (Auto) 63 % (31-73) Lymphocytes (%) (Auto) 20 % (24-48) Monocytes (%) (Auto) 14 % (0-9) Eosinophils (%) (Auto) 4 % (0-3) Basophils (%) (Auto) 0 % (0-3) Neutrophils # (Auto) 4.3 x10^3uL (1.8-7.7) Lymphocytes # (Auto) 1.3 x10^3/uL (1.0-4.8) Monocytes # (Auto) 0.9 x10^3/uL (0.0-1.1) Eosinophils # (Auto) 0.3 x10^3/uL (0.0-0.7) Basophils # (Auto) 0.0 x10^3/uL (0.0-0.2) Sodium Level 139 mmol/L (136-145) Potassium Level 3.7 mmol/L (3.5-5.1) Chloride Level 100 mmol/L (98-107) Carbon Dioxide Level 33 mmol/L (21-32) Anion Gap 6 (6-14) Blood Urea Nitrogen 24 mg/dL (7-20) Creatinine 1.0 mg/dL (0.6-1.0) Estimated GFR (Cockcroft-Gault) 53.0 Glucose Level 80 mg/dL (70-99) Calcium Level 8.5 mg/dL (8.5-10.1) Allergies Allergies Coded Allergies Type Severity Reaction Last Updated Verified Sulfa (Sulfonamide Antibiotics) Allergy Intermediate 01/17/16 Yes sulfur Allergy Intermediate Eyes swell 04/16/18 Yes Disposition/Orders: Other (SNF BED) Patient Instructions D/C PLANNING 35 MIN IRAIS GUSTAFSON MD Dec 09, 2018 13:51
--- NOTE | 2018-12-09 14:05 | PDOC ---
PROGRESS NOTES Subjective Subjective She feels better. Objective Objective Vital Signs Date Time Temp Pulse Resp B/P (MAP) Pulse Ox O2 Delivery O2 Flow Rate FiO2 12/09/18 11:00 98.7 68 16 121/45 (70) 98 Nasal Cannula 3.0 98.7 Intake and Output 12/09/18 07:00 Intake Total 120 ml Balance 120 ml Intake Oral 120 ml # Voids 2 Physical Exam Physical Exam She continues with some cognitive deficits but has gotten up and walked with physical therapy. Assessment Assessment Problems Medical Problems: (1) Intractable back pain Status: Acute Plan Plan of Care To SNF when medically stable. Comment Review of Relevant I have reviewed the following items mann (where applicable) has been applied. Labs Laboratory Tests Test 12/09/18 03:55 White Blood Count 6.9 x10^3/uL (4.0-11.0) Red Blood Count 3.48 x10^6/uL (3.50-5.40) Hemoglobin 10.6 g/dL (12.0-15.5) Hematocrit 32.3 % (36.0-47.0) Mean Corpuscular Volume 93 fL (79-100) Mean Corpuscular Hemoglobin 30 pg (25-35) Mean Corpuscular Hemoglobin Concent 33 g/dL (31-37) Red Cell Distribution Width 14.0 % (11.5-14.5) Platelet Count 143 x10^3/uL (140-400) Neutrophils (%) (Auto) 63 % (31-73) Lymphocytes (%) (Auto) 20 % (24-48) Monocytes (%) (Auto) 14 % (0-9) Eosinophils (%) (Auto) 4 % (0-3) Basophils (%) (Auto) 0 % (0-3) Neutrophils # (Auto) 4.3 x10^3uL (1.8-7.7) Lymphocytes # (Auto) 1.3 x10^3/uL (1.0-4.8) Monocytes # (Auto) 0.9 x10^3/uL (0.0-1.1) Eosinophils # (Auto) 0.3 x10^3/uL (0.0-0.7) Basophils # (Auto) 0.0 x10^3/uL (0.0-0.2) Sodium Level 139 mmol/L (136-145) Potassium Level 3.7 mmol/L (3.5-5.1) Chloride Level 100 mmol/L (98-107) Carbon Dioxide Level 33 mmol/L (21-32) Anion Gap 6 (6-14) Blood Urea Nitrogen 24 mg/dL (7-20) Creatinine 1.0 mg/dL (0.6-1.0) Estimated GFR (Cockcroft-Gault) 53.0 Glucose Level 80 mg/dL (70-99) Calcium Level 8.5 mg/dL (8.5-10.1) Laboratory Tests Test 12/09/18 03:55 White Blood Count 6.9 x10^3/uL (4.0-11.0) Red Blood Count 3.48 x10^6/uL (3.50-5.40) Hemoglobin 10.6 g/dL (12.0-15.5) Hematocrit 32.3 % (36.0-47.0) Mean Corpuscular Volume 93 fL (79-100) Mean Corpuscular Hemoglobin 30 pg (25-35) Mean Corpuscular Hemoglobin Concent 33 g/dL (31-37) Red Cell Distribution Width 14.0 % (11.5-14.5) Platelet Count 143 x10^3/uL (140-400) Neutrophils (%) (Auto) 63 % (31-73) Lymphocytes (%) (Auto) 20 % (24-48) Monocytes (%) (Auto) 14 % (0-9) Eosinophils (%) (Auto) 4 % (0-3) Basophils (%) (Auto) 0 % (0-3) Neutrophils # (Auto) 4.3 x10^3uL (1.8-7.7) Lymphocytes # (Auto) 1.3 x10^3/uL (1.0-4.8) Monocytes # (Auto) 0.9 x10^3/uL (0.0-1.1) Eosinophils # (Auto) 0.3 x10^3/uL (0.0-0.7) Basophils # (Auto) 0.0 x10^3/uL (0.0-0.2) Sodium Level 139 mmol/L (136-145) Potassium Level 3.7 mmol/L (3.5-5.1) Chloride Level 100 mmol/L (98-107) Carbon Dioxide Level 33 mmol/L (21-32) Anion Gap 6 (6-14) Blood Urea Nitrogen 24 mg/dL (7-20) Creatinine 1.0 mg/dL (0.6-1.0) Estimated GFR (Cockcroft-Gault) 53.0 Glucose Level 80 mg/dL (70-99) Calcium Level 8.5 mg/dL (8.5-10.1) Microbiology 12/04/18 Urine Culture - Final, Complete 12/04/18 Urine Culture Result 1 (LAURA) - Final, Complete 12/04/18 Antimicrobic Susceptibility - Final, Complete Medications Current Medications Fentanyl Citrate (Fentanyl 2ml Vial) 50 mcg 1X ONCE IV Last administered on 12/04/18at 21:01; Start 12/04/18 at 20:45; Stop 12/04/18 at 20:46; Status DC Morphine Sulfate (Morphine Sulfate) 5 mg 1X ONCE IV Last administered on at 22:49; Start 12/04/18 at 22:30; Stop 12/04/18 at 22:31; Status DC Ondansetron HCl (Zofran) 4 mg PRN Q8HRS PRN IV NAUSEA/VOMITING Last administered on 12/05/18at 21:28; Start 12/05/18 at 03:00; Stop 12/06/18 at 02:59 ; Status DC Morphine Sulfate (Morphine Sulfate) 2 mg PRN Q2HR PRN IV PAIN Last administered on 12/05/18at 08:24; Start 12/05/18 at 03:00; Stop 12/06/18 at 02:59 ; Status DC Acetaminophen (Tylenol) 650 mg PRN Q4HRS PRN PO FEVER; Start 12/05/18 at 03:00 ; Stop 12/06/18 at 02:59; Status DC Polymyxin/ Trimethoprim Sulfate (Polytrim) 2 drop TID OU ; Start 12/05/18 at 09: 00; Stop 12/05/18 at 15:31; Status DC Albuterol Sulfate (Ventolin Neb Soln) 2.5 mg PRN Q6HRS PRN INH SHORTNESS OF BREATH; Start 12/05/18 at 12:30 Amlodipine Besylate (Norvasc) 5 mg DAILY PO Last administered on 12/08/18at 11: 04; Start 12/05/18 at 13:00 Aspirin (Ecotrin) 81 mg DAILY PO Last administered on 12/09/18 08:59; Start at 13:00 Carvedilol (Coreg) 12.5 mg BIDWMEALS PO Last administered on 12/09/18 08:59; Start 12/05/18 at 17:00 Furosemide (Lasix) 20 mg DAILY PO Last administered on 12/09/18 09:00; Start 12/05/18 at 13:00 Levothyroxine Sodium (Synthroid) 88 mcg DAILY06 PO Last administered on 05:57; Start 12/05/18 at 13:00 Lisinopril (Prinivil) 10 mg DAILY PO Last administered on 12/08/18 11:06; Start 12/05/18 at 13:00 Potassium Chloride (Klor-Con) 10 meq DAILY PO Last administered on 12/09/18 09 :00; Start 12/05/18 at 13:00 Citalopram Hydrobromide (CeleXA) 40 mg DAILY PO Last administered on 12/09/18 08:59; Start 12/05/18 at 13:00 Non-Formulary Medication (Fluticasone/ Umeclidin/ Vilanter (Trelegy Ellipta 100- 62.5-25)) 1 each PRN PRN IH SHORTNESS OF BREATH; Start 12/05/18 at 12:30; Status UNV Famotidine (Pepcid) 40 mg QHS PO Last administered on 12/08/18 20:39; Start at 21:00 Simvastatin (Zocor) 20 mg HS PO Last administered on 12/08/18 20:39; Start 08/13 at 21:00 Prochlorperazine (Compazine) 25 mg PRN Q12HR PRN [place] NAUSEA/VOMITING Last administered on 12/05/18 16:53; Start 12/05/18 at 16:30 Acetaminophen (Tylenol) 650 mg PRN Q4HRS PRN PO FEVER, HEADACHE Last administered on 12/08/18 11:03; Start 12/06/18 at 08:00 Acetaminophen/ Hydrocodone Bitart (Lortab 5/325) 1 tab PRN Q4HRS PRN PO PAIN Last administered on 2/12/19at 22:34; Start 12/06/18 at 17:30 Lidocaine/Sodium Bicarbonate (Buffered Lidocaine 1%) 3 ml STK-MED ONCE .ROUTE ; Start 12/07/18 at 13:36; Stop 12/07/18 at 13:37; Status DC Iohexol (Omnipaque 240 Mg/ml) 50 ml STK-MED ONCE .ROUTE ; Start 12/07/18 at 13: 36; Stop 12/07/18 at 13:37; Status DC Cefazolin Sodium 50 ml @ As Directed STK-MED ONCE IV ; Start 12/07/18 at 13:44; Stop 12/07/18 at 13:45; Status DC Midazolam HCl (Versed) 2 mg STK-MED ONCE .ROUTE ; Start 12/07/18 at 13:44; Stop 12/07/18 at 13:45; Status DC Fentanyl Citrate (Fentanyl 2ml Vial) 100 mcg STK-MED ONCE .ROUTE ; Start at 13:44; Stop 12/07/18 at 13:45; Status DC Lidocaine/Sodium Bicarbonate (Buffered Lidocaine 1%) 3 ml STK-MED ONCE .ROUTE ; Start 12/07/18 at 13:57; Stop 12/07/18 at 13:58; Status DC Iohexol (Omnipaque 240 Mg/ml) 50 ml STK-MED ONCE .ROUTE ; Start 12/07/18 at 13: 57; Stop 12/07/18 at 13:58; Status DC Lidocaine/Sodium Bicarbonate (Buffered Lidocaine 1%) 12 ml 1X ONCE IJ Last administered on 12/07/18at 14:30; Start 12/07/18 at 14:30; Stop 12/07/18 at 14:31 ; Status DC Midazolam HCl (Versed) 2 mg 1X ONCE IV Last administered on 12/07/18at 14:30; Start 12/07/18 at 14:30; Stop 12/07/18 at 14:31; Status DC Fentanyl Citrate (Fentanyl 2ml Vial) 100 mcg 1X ONCE IV Last administered on at 14:30; Start 12/07/18 at 14:30; Stop 12/07/18 at 14:31; Status DC Iohexol (Omnipaque 300 Mg/ml) 50 ml 1X ONCE IART Last administered on 2/12/ 19at 14:30; Start 12/07/18 at 14:30; Stop 12/07/18 at 14:31; Status DC Info (CONTRAST GIVEN -- Rx MONITORING) 1 each PRN DAILY PRN MC SEE COMMENTS; Start 12/07/18 at 14:45; Stop 12/09/18 at 14:44 Magnesium Hydroxide (Milk Of Magnesia) 2,400 mg PRN DAILY PRN PO CONSTIPATION Last administered on 12/09/18at 11:37; Start 12/09/18 at 10:45 Ciprofloxacin (Cipro) 250 mg BID PO ; Start 12/09/18 at 21:00 Active Scripts Active Cipro (Ciprofloxacin Hcl) 250 Mg Tablet 1 Tab PO BID 10 Days Amlodipine Besylate 5 Mg Tablet 5 Mg PO DAILY 30 Days Reported Proair Hfa (Albuterol Sulfate) 8.5 Gm Hfa.aer.ad 1 Puff INH PRN Q6HRS PRN Trelegy Ellipta 100-62.5-25 (Fluticasone/Umeclidin/Vilanter) 1 Each Blst.w.dev 1 Each IH PRN PRN Potassium Chloride 10 Meq Tab.sr.24h 10 Meq PO DAILY Lasix (Furosemide) 20 Mg Tablet 1 Tab PO DAILY Levothyroxine Sodium 88 Mcg Tablet 1 Tab PO DAILY Ranitidine Hcl 300 Mg Tablet 300 Mg PO DAILY Aspir 81 (Aspirin) 81 Mg Tablet. 1 Tab PO DAILY Escitalopram Oxalate 20 Mg Tablet 1 Tab PO DAILY Simvastatin 20 Mg Tablet 1 Tab PO QHS Carvedilol (Carvedilol) 12.5 Mg Tablet 1 Tab PO BID Lisinopril 10 Mg Tablet 1 Tab PO DAILY Vitals/I & O Vital Sign - Last 24 Hours 12/08/18 12/08/18 12/08/18 12/08/18 15:00 17:44 19:00 20:00 Temp 98.6 97.9 98.6 97.9 Pulse 72 72 68 Resp 16 16 B/P (MAP) 107/47 (67) 107/47 110/56 (74) Pulse Ox 97 97 O2 Delivery Nasal Cannula Nasal Cannula Nasal Cannula O2 Flow Rate 3.0 3.0 3.0 12/08/18 12/09/18 12/09/18 12/09/18 23:00 03:00 07:00 07:35 Temp 97.3 99.0 97.6 97.3 99.0 97.6 Pulse 68 74 73 Resp 16 16 16 B/P (MAP) 117/50 (72) 119/56 (77) 127/54 (78) Pulse Ox 97 96 96 O2 Delivery Nasal Cannula Nasal Cannula Nasal Cannula Nasal Cannula O2 Flow Rate 3.0 3.0 3.0 3.0 12/09/18 12/09/18 12/09/18 12/09/18 08:59 09:00 09:00 11:00 Temp 98.7 98.7 Pulse 73 73 73 68 Resp 16 B/P (MAP) 127/54 127/54 127/54 121/45 (70) Pulse Ox 98 O2 Delivery Nasal Cannula O2 Flow Rate 3.0 Intake and Output 12/08/18 12/08/18 12/09/18 15:00 23:00 07:00 Intake Total 120 ml Balance 120 ml ELSA MOSLEY MD Dec 09, 2018 14:05
[2018-12-09 15:00] VITALS: BP 129/57
[2018-12-09] MEDS: CIPROFLOXACIN HCL 250 MG TABLET. PO SCH (15:01)
[2018-12-09] MEDS: ACETAMINOPHEN 325 MG TABLET. PO PRN (15:02)
[2018-12-09 19:00] VITALS: BP 111/50
[2018-12-09] MEDS: SIMVASTATIN 20 MG TABLET PO SCH (21:06)
[2018-12-09] MEDS: FAMOTIDINE 20 MG TABLET. PO SCH (21:06)
[2018-12-09 23:00] VITALS: BP 115/46
[2018-12-10] MEDS: CIPROFLOXACIN HCL 250 MG TABLET. PO SCH (02:34)
[2018-12-10 03:00] VITALS: BP 127/52
[2018-12-10 05:52] LABS: BASO % 1 % (0-3); EOS # 0.2 x10^3/uL (0.0-0.7); EOS % 3 % (0-3); HEMATOCRIT 33.4 % (36.0-47.0); HEMOGLOBIN 10.9 g/dL (12.0-15.5); LYMPH # 1.7 x10^3/uL (1.0-4.8); LYMPH % 24 % (24-48); MEAN CORPUSCULAR HEMOGLOBIN 31 pg (25-35); MEAN CORPUSCULAR HGB CONC 33 g/dL (31-37); MEAN CORPUSCULAR VOLUME 94 fL (79-100); MONO # 1.1 x10^3/uL (0.0-1.1); MONO % 15 % (0-9); NEUT # 4.1 x10^3uL (1.8-7.7); NEUT % 57 % (31-73); PLATELET COUNT 146 x10^3/uL (140-400); RED BLOOD COUNT 3.57 x10^6/uL (3.50-5.40); WHITE BLOOD COUNT 7.1 x10^3/uL (4.0-11.0)
[2018-12-10] MEDS: LEVOTHYROXINE 88 MCG TABLET PO SCH (05:59)
[2018-12-10 06:06] LABS: CALCIUM 8.6 mg/dL (8.5-10.1); CREATININE 0.9 mg/dL (0.6-1.0); GFR 59.8; POTASSIUM 3.8 mmol/L (3.5-5.1)
[2018-12-10 07:00] VITALS: BP 129/54
[2018-12-10] MEDS: ASPIRIN ENTERIC COATED 81 MG TABLET.DR. PO SCH (08:55)
[2018-12-10] MEDS: POTASSIUM CHLORIDE 10 MEQ TABLET.ER. PO SCH (08:56)
[2018-12-10] MEDS: FUROSEMIDE 20 MG TABLET PO SCH (08:57)
[2018-12-10] MEDS: CITALOPRAM 20 MG TABLET. PO SCH (08:57)
[2018-12-10] MEDS: ACETAMINOPHEN 325 MG TABLET. PO PRN (08:58)
[2018-12-10 08:59] VITALS: BP 129/54
[2018-12-10] MEDS: CARVEDILOL 12.5 MG TABLET. PO SCH (08:59)
[2018-12-10] MEDS: amLODIPine BESYLATE 5 MG TABLET PO SCH (08:59)
[2018-12-10] MEDS: LISINOPRIL 10 MG TABLET PO SCH (09:00)
[2018-12-10] MEDS: MAGNESIUM HYDROXIDE 2,400 MG/30 ML ORAL.SUSP. PO PRN (09:00)
--- NOTE | 2018-12-10 09:02 | PDOC ---
PROGRESS NOTES Subjective Subjective She had no new complaints. Objective Objective Vital Signs Date Time Temp Pulse Resp B/P (MAP) Pulse Ox O2 Delivery O2 Flow Rate FiO2 12/10/18 07:35 Nasal Cannula 3.0 12/10/18 07:00 98.1 70 18 129/54 (79) 99 98.1 Intake and Output 12/10/18 07:00 Intake Total 480 ml Balance 480 ml Intake Oral 480 ml # Voids 5 Physical Exam Physical Exam She is sitting in bedside chair and eating breakfast without back brace on and she is more with it. Assessment Assessment Problems Medical Problems: (1) Intractable back pain Status: Acute Plan Plan of Care Agree with plans for SNF transfer when medically stable. Comment Review of Relevant I have reviewed the following items mann (where applicable) has been applied. Labs Laboratory Tests Test 12/09/18 03:55 12/10/18 04:43 White Blood Count 6.9 x10^3/uL (4.0-11.0) 7.1 x10^3/uL (4.0-11.0) Red Blood Count 3.48 x10^6/uL (3.50-5.40) 3.57 x10^6/uL (3.50-5.40) Hemoglobin 10.6 g/dL (12.0-15.5) 10.9 g/dL (12.0-15.5) Hematocrit 32.3 % (36.0-47.0) 33.4 % (36.0-47.0) Mean Corpuscular Volume 93 fL (79-100) 94 fL (79-100) Mean Corpuscular Hemoglobin 30 pg (25-35) 31 pg (25-35) Mean Corpuscular Hemoglobin Concent 33 g/dL (31-37) 33 g/dL (31-37) Red Cell Distribution Width 14.0 % (11.5-14.5) 14.0 % (11.5-14.5) Platelet Count 143 x10^3/uL (140-400) 146 x10^3/uL (140-400) Neutrophils (%) (Auto) 63 % (31-73) 57 % (31-73) Lymphocytes (%) (Auto) 20 % (24-48) 24 % (24-48) Monocytes (%) (Auto) 14 % (0-9) 15 % (0-9) Eosinophils (%) (Auto) 4 % (0-3) 3 % (0-3) Basophils (%) (Auto) 0 % (0-3) 1 % (0-3) Neutrophils # (Auto) 4.3 x10^3uL (1.8-7.7) 4.1 x10^3uL (1.8-7.7) Lymphocytes # (Auto) 1.3 x10^3/uL (1.0-4.8) 1.7 x10^3/uL (1.0-4.8) Monocytes # (Auto) 0.9 x10^3/uL (0.0-1.1) 1.1 x10^3/uL (0.0-1.1) Eosinophils # (Auto) 0.3 x10^3/uL (0.0-0.7) 0.2 x10^3/uL (0.0-0.7) Basophils # (Auto) 0.0 x10^3/uL (0.0-0.2) 0.0 x10^3/uL (0.0-0.2) Sodium Level 139 mmol/L (136-145) 140 mmol/L (136-145) Potassium Level 3.7 mmol/L (3.5-5.1) 3.8 mmol/L (3.5-5.1) Chloride Level 100 mmol/L (98-107) 101 mmol/L (98-107) Carbon Dioxide Level 33 mmol/L (21-32) 35 mmol/L (21-32) Anion Gap 6 (6-14) 4 (6-14) Blood Urea Nitrogen 24 mg/dL (7-20) 19 mg/dL (7-20) Creatinine 1.0 mg/dL (0.6-1.0) 0.9 mg/dL (0.6-1.0) Estimated GFR (Cockcroft-Gault) 53.0 59.8 Glucose Level 80 mg/dL (70-99) 95 mg/dL (70-99) Calcium Level 8.5 mg/dL (8.5-10.1) 8.6 mg/dL (8.5-10.1) Laboratory Tests Test 12/10/18 04:43 White Blood Count 7.1 x10^3/uL (4.0-11.0) Red Blood Count 3.57 x10^6/uL (3.50-5.40) Hemoglobin 10.9 g/dL (12.0-15.5) Hematocrit 33.4 % (36.0-47.0) Mean Corpuscular Volume 94 fL (79-100) Mean Corpuscular Hemoglobin 31 pg (25-35) Mean Corpuscular Hemoglobin Concent 33 g/dL (31-37) Red Cell Distribution Width 14.0 % (11.5-14.5) Platelet Count 146 x10^3/uL (140-400) Neutrophils (%) (Auto) 57 % (31-73) Lymphocytes (%) (Auto) 24 % (24-48) Monocytes (%) (Auto) 15 % (0-9) Eosinophils (%) (Auto) 3 % (0-3) Basophils (%) (Auto) 1 % (0-3) Neutrophils # (Auto) 4.1 x10^3uL (1.8-7.7) Lymphocytes # (Auto) 1.7 x10^3/uL (1.0-4.8) Monocytes # (Auto) 1.1 x10^3/uL (0.0-1.1) Eosinophils # (Auto) 0.2 x10^3/uL (0.0-0.7) Basophils # (Auto) 0.0 x10^3/uL (0.0-0.2) Sodium Level 140 mmol/L (136-145) Potassium Level 3.8 mmol/L (3.5-5.1) Chloride Level 101 mmol/L (98-107) Carbon Dioxide Level 35 mmol/L (21-32) Anion Gap 4 (6-14) Blood Urea Nitrogen 19 mg/dL (7-20) Creatinine 0.9 mg/dL (0.6-1.0) Estimated GFR (Cockcroft-Gault) 59.8 Glucose Level 95 mg/dL (70-99) Calcium Level 8.6 mg/dL (8.5-10.1) Microbiology 12/04/18 Urine Culture - Final, Complete 12/04/18 Urine Culture Result 1 (LAURA) - Final, Complete 12/04/18 Antimicrobic Susceptibility - Final, Complete Medications Current Medications Fentanyl Citrate (Fentanyl 2ml Vial) 50 mcg 1X ONCE IV Last administered on 21:01; Start 12/04/18 at 20:45; Stop 12/04/18 at 20:46; Status DC Morphine Sulfate (Morphine Sulfate) 5 mg 1X ONCE IV Last administered on 22:49; Start 12/04/18 at 22:30; Stop 12/04/18 at 22:31; Status DC Ondansetron HCl (Zofran) 4 mg PRN Q8HRS PRN IV NAUSEA/VOMITING Last administered on 12/05/18 21:28; Start 12/05/18 at 03:00; Stop 12/06/18 at 02:59 ; Status DC Morphine Sulfate (Morphine Sulfate) 2 mg PRN Q2HR PRN IV PAIN Last administered on 12/05/18 08:24; Start 12/05/18 at 03:00; Stop 12/06/18 at 02:59 ; Status DC Acetaminophen (Tylenol) 650 mg PRN Q4HRS PRN PO FEVER; Start 12/05/18 at 03:00 ; Stop 12/06/18 at 02:59; Status DC Polymyxin/ Trimethoprim Sulfate (Polytrim) 2 drop TID OU ; Start 12/05/18 at 09: 00; Stop 12/05/18 at 15:31; Status DC Albuterol Sulfate (Ventolin Neb Soln) 2.5 mg PRN Q6HRS PRN INH SHORTNESS OF BREATH; Start 12/05/18 at 12:30 Amlodipine Besylate (Norvasc) 5 mg DAILY PO Last administered on 12/08/18 11: 04; Start 12/05/18 at 13:00 Aspirin (Ecotrin) 81 mg DAILY PO Last administered on 12/09/18 08:59; Start at 13:00 Carvedilol (Coreg) 12.5 mg BIDWMEALS PO Last administered on 12/09/18 17:35; Start 12/05/18 at 17:00 Furosemide (Lasix) 20 mg DAILY PO Last administered on 12/09/18 09:00; Start 12/05/18 at 13:00 Levothyroxine Sodium (Synthroid) 88 mcg DAILY06 PO Last administered on 05:59; Start 12/05/18 at 13:00 Lisinopril (Prinivil) 10 mg DAILY PO Last administered on 12/08/18 11:06; Start 12/05/18 at 13:00 Potassium Chloride (Klor-Con) 10 meq DAILY PO Last administered on 12/09/18 09 :00; Start 12/05/18 at 13:00 Citalopram Hydrobromide (CeleXA) 40 mg DAILY PO Last administered on 12/09/18 08:59; Start 12/05/18 at 13:00 Non-Formulary Medication (Fluticasone/ Umeclidin/ Vilanter (Trelegy Ellipta 100- 62.5-25)) 1 each PRN PRN IH SHORTNESS OF BREATH; Start 12/05/18 at 12:30; Status UNV Famotidine (Pepcid) 40 mg QHS PO Last administered on 12/09/18 21:06; Start at 21:00 Simvastatin (Zocor) 20 mg HS PO Last administered on 12/09/18 21:06; Start 08/13 at 21:00 Prochlorperazine (Compazine) 25 mg PRN Q12HR PRN [place] NAUSEA/VOMITING Last administered on 12/05/18 16:53; Start 12/05/18 at 16:30 Acetaminophen (Tylenol) 650 mg PRN Q4HRS PRN PO FEVER, HEADACHE Last administered on 12/09/18 15:02; Start 12/06/18 at 08:00 Acetaminophen/ Hydrocodone Bitart (Lortab 5/325) 1 tab PRN Q4HRS PRN PO PAIN Last administered on 12/07/18at 22:34; Start 12/06/18 at 17:30 Lidocaine/Sodium Bicarbonate (Buffered Lidocaine 1%) 3 ml STK-MED ONCE .ROUTE ; Start 12/07/18 at 13:36; Stop 12/07/18 at 13:37; Status DC Iohexol (Omnipaque 240 Mg/ml) 50 ml STK-MED ONCE .ROUTE ; Start 12/07/18 at 13: 36; Stop 12/07/18 at 13:37; Status DC Cefazolin Sodium 50 ml @ As Directed STK-MED ONCE IV ; Start 12/07/18 at 13:44; Stop 12/07/18 at 13:45; Status DC Midazolam HCl (Versed) 2 mg STK-MED ONCE .ROUTE ; Start 12/07/18 at 13:44; Stop 12/07/18 at 13:45; Status DC Fentanyl Citrate (Fentanyl 2ml Vial) 100 mcg STK-MED ONCE .ROUTE ; Start at 13:44; Stop 12/07/18 at 13:45; Status DC Lidocaine/Sodium Bicarbonate (Buffered Lidocaine 1%) 3 ml STK-MED ONCE .ROUTE ; Start 12/07/18 at 13:57; Stop 12/07/18 at 13:58; Status DC Iohexol (Omnipaque 240 Mg/ml) 50 ml STK-MED ONCE .ROUTE ; Start 12/07/18 at 13: 57; Stop 12/07/18 at 13:58; Status DC Lidocaine/Sodium Bicarbonate (Buffered Lidocaine 1%) 12 ml 1X ONCE IJ Last administered on 12/07/18at 14:30; Start 12/07/18 at 14:30; Stop 12/07/18 at 14:31 ; Status DC Midazolam HCl (Versed) 2 mg 1X ONCE IV Last administered on 12/07/18at 14:30; Start 12/07/18 at 14:30; Stop 12/07/18 at 14:31; Status DC Fentanyl Citrate (Fentanyl 2ml Vial) 100 mcg 1X ONCE IV Last administered on at 14:30; Start 12/07/18 at 14:30; Stop 12/07/18 at 14:31; Status DC Iohexol (Omnipaque 300 Mg/ml) 50 ml 1X ONCE IART Last administered on at 14:30; Start 12/07/18 at 14:30; Stop 12/07/18 at 14:31; Status DC Info (CONTRAST GIVEN -- Rx MONITORING) 1 each PRN DAILY PRN MC SEE COMMENTS; Start 12/07/18 at 14:45; Stop 12/09/18 at 14:44; Status DC Magnesium Hydroxide (Milk Of Magnesia) 2,400 mg PRN DAILY PRN PO CONSTIPATION Last administered on 12/09/18at 11:37; Start 12/09/18 at 10:45 Ciprofloxacin (Cipro) 250 mg Q12H PO Last administered on 12/10/18at 02:34; Start 12/09/18 at 15:00 Active Scripts Active Cipro (Ciprofloxacin Hcl) 250 Mg Tablet 1 Tab PO BID 10 Days Amlodipine Besylate 5 Mg Tablet 5 Mg PO DAILY 30 Days Reported Proair Hfa (Albuterol Sulfate) 8.5 Gm Hfa.aer.ad 1 Puff INH PRN Q6HRS PRN Trelegy Ellipta 100-62.5-25 (Fluticasone/Umeclidin/Vilanter) 1 Each Blst.w.dev 1 Each IH PRN PRN Potassium Chloride 10 Meq Tab.sr.24h 10 Meq PO DAILY Lasix (Furosemide) 20 Mg Tablet 1 Tab PO DAILY Levothyroxine Sodium 88 Mcg Tablet 1 Tab PO DAILY Ranitidine Hcl 300 Mg Tablet 300 Mg PO DAILY Aspir 81 (Aspirin) 81 Mg Tablet.dr 1 Tab PO DAILY Escitalopram Oxalate 20 Mg Tablet 1 Tab PO DAILY Simvastatin 20 Mg Tablet 1 Tab PO QHS Carvedilol (Carvedilol) 12.5 Mg Tablet 1 Tab PO BID Lisinopril 10 Mg Tablet 1 Tab PO DAILY Vitals/I & O Vital Sign - Last 24 Hours 12/09/18 12/09/18 12/09/18 12/09/18 11:00 15:00 17:35 19:00 Temp 98.7 99.1 98.1 98.7 99.1 98.1 Pulse 68 75 75 67 Resp 16 16 18 B/P (MAP) 121/45 (70) 129/57 (81) 129/57 111/50 (70) Pulse Ox 98 98 97 O2 Delivery Nasal Cannula Nasal Cannula Nasal Cannula O2 Flow Rate 3.0 3.0 3.0 12/09/18 12/09/18 12/10/18 12/10/18 20:00 23:00 03:00 07:00 Temp 98.0 97.4 98.1 98.0 97.4 98.1 Pulse 68 66 70 Resp 18 18 18 B/P (MAP) 115/46 (69) 127/52 (77) 129/54 (79) Pulse Ox 96 98 99 O2 Delivery Nasal Cannula Nasal Cannula Nasal Cannula Nasal Cannula O2 Flow Rate 3.0 3.0 3.0 3.0 12/10/18 07:35 O2 Delivery Nasal Cannula O2 Flow Rate 3.0 Intake and Output 12/09/18 12/09/18 12/10/18 15:00 23:00 07:00 Intake Total 90 ml 290 ml 100 ml Balance 90 ml 290 ml 100 ml ELSA MOSLEY MD Dec 10, 2018 09:02
--- NOTE | 2018-12-10 10:11 | NUR ---
SW following. Pt will discharge to [facility] today at 1045. Pt choice and rights letter signed and placed on chart. RN and Son notified. No further SW needs.
--- NOTE | 2018-12-10 11:18 | PDOC ---
PROGRESS NOTES Chief Complaint Chief Complaint CC: Fall, L1 compression fracture 1. Degenerative spondylosis with stenosis greatest at L4-L5. 2. CAD, on plavix 3. GERD 4. Depression or anxiety, w/ insomnia, 5. N/V, 12/05 KUB nonobstructive bowel pattern 6. L4-L5, there is a broad-based right foraminal to extraforaminal disc protrusion superimposed on a disc bulge 7. UTI e-coli sen to cipro History of Present Illness History of Present Illness Pt is 83 y/o female who was admitted after a fall with a L1 compression fracture. She is s/p kyphoplasty, 12/07. Today she was seen and examined in her room. She is laying in her bed. Pt is confused today. She states she has been up and moving and was sitting in her chair this morning. Her pain had gotten worse while sitting but is better now that she is laying in bed. Spoke with her daughter and her RN. She is confused and hallucinating today. This is not her baseline. Discussed getting her to PP after she gets back to her baseline. She lives with her son. Daughter states they are working on getting her to an assisted living facility. RN says she has not had any pain meds since yesterday. 12/10/18 - Today the pt was seen and examined in her room. She is very much improved. She is alert, oriented and is eating breakfast in her chair. No more confusion. I discussed D/C to PP with her family and RN. I wrote a script for cipro. Vitals Vitals Vital Signs Date Time Temp Pulse Resp B/P (MAP) Pulse Ox O2 Delivery O2 Flow Rate FiO2 12/10/18 08:59 70 129/54 12/10/18 07:35 Nasal Cannula 3.0 12/10/18 07:00 98.1 18 99 98.1 Physical Exam General: Alert, Oriented X3, Cooperative, mild distress Heart: Regular rate, Normal S1, Normal S2, No murmurs Lungs: Clear, Other (No wheezing or crackles) Abdomen: Normal bowel sounds, Soft, No tenderness, No hepatosplenomegaly Extremities: No clubbing, No cyanosis, No edema Skin: No rashes, No significant lesion Labs LABS Laboratory Tests Test 12/10/18 04:43 White Blood Count 7.1 x10^3/uL (4.0-11.0) Red Blood Count 3.57 x10^6/uL (3.50-5.40) Hemoglobin 10.9 g/dL (12.0-15.5) Hematocrit 33.4 % (36.0-47.0) Mean Corpuscular Volume 94 fL (79-100) Mean Corpuscular Hemoglobin 31 pg (25-35) Mean Corpuscular Hemoglobin Concent 33 g/dL (31-37) Red Cell Distribution Width 14.0 % (11.5-14.5) Platelet Count 146 x10^3/uL (140-400) Neutrophils (%) (Auto) 57 % (31-73) Lymphocytes (%) (Auto) 24 % (24-48) Monocytes (%) (Auto) 15 % (0-9) Eosinophils (%) (Auto) 3 % (0-3) Basophils (%) (Auto) 1 % (0-3) Neutrophils # (Auto) 4.1 x10^3uL (1.8-7.7) Lymphocytes # (Auto) 1.7 x10^3/uL (1.0-4.8) Monocytes # (Auto) 1.1 x10^3/uL (0.0-1.1) Eosinophils # (Auto) 0.2 x10^3/uL (0.0-0.7) Basophils # (Auto) 0.0 x10^3/uL (0.0-0.2) Sodium Level 140 mmol/L (136-145) Potassium Level 3.8 mmol/L (3.5-5.1) Chloride Level 101 mmol/L (98-107) Carbon Dioxide Level 35 mmol/L (21-32) Anion Gap 4 (6-14) Blood Urea Nitrogen 19 mg/dL (7-20) Creatinine 0.9 mg/dL (0.6-1.0) Estimated GFR (Cockcroft-Gault) 59.8 Glucose Level 95 mg/dL (70-99) Calcium Level 8.6 mg/dL (8.5-10.1) Review of Systems Review of Systems Gen: denies fever, chills, no longer confused Heart: denies CP, palp Lung: denies cough, SOA GI: denies abd pain, N/V Assessment and Plan Assessmemt and Plan Assessment CC: Fall, L1 compression fracture 1. S/p L1 kyphoplasty 12/07 2. Confusion, likely from anesthesia. Pain meds have been held since yesterday 3. Degenerative spondylosis with stenosis greatest at L4-L5. 4. CAD, on plavix 5. GERD 6. Depression or anxiety, w/ insomnia, 7. N/V, 12/05 KUB nonobstructive bowel pattern 8. L4-L5, there is a broad-based right foraminal to extraforaminal disc protrusion superimposed on a disc bulge 9. UTI on cipro Plan Script for cipro 250mg q12h Supportive treatment Follow labs PT/OT Home meds Appreciate subspecialist input S/p L1 kyphoplasty on 12/07 Probable D/C to PP today Comment Review of Relevant I have reviewed the following items mann (where applicable) has been applied. Labs Laboratory Tests Test 12/09/18 03:55 12/10/18 04:43 White Blood Count 6.9 x10^3/uL (4.0-11.0) 7.1 x10^3/uL (4.0-11.0) Red Blood Count 3.48 x10^6/uL (3.50-5.40) 3.57 x10^6/uL (3.50-5.40) Hemoglobin 10.6 g/dL (12.0-15.5) 10.9 g/dL (12.0-15.5) Hematocrit 32.3 % (36.0-47.0) 33.4 % (36.0-47.0) Mean Corpuscular Volume 93 fL (79-100) 94 fL (79-100) Mean Corpuscular Hemoglobin 30 pg (25-35) 31 pg (25-35) Mean Corpuscular Hemoglobin Concent 33 g/dL (31-37) 33 g/dL (31-37) Red Cell Distribution Width 14.0 % (11.5-14.5) 14.0 % (11.5-14.5) Platelet Count 143 x10^3/uL (140-400) 146 x10^3/uL (140-400) Neutrophils (%) (Auto) 63 % (31-73) 57 % (31-73) Lymphocytes (%) (Auto) 20 % (24-48) 24 % (24-48) Monocytes (%) (Auto) 14 % (0-9) 15 % (0-9) Eosinophils (%) (Auto) 4 % (0-3) 3 % (0-3) Basophils (%) (Auto) 0 % (0-3) 1 % (0-3) Neutrophils # (Auto) 4.3 x10^3uL (1.8-7.7) 4.1 x10^3uL (1.8-7.7) Lymphocytes # (Auto) 1.3 x10^3/uL (1.0-4.8) 1.7 x10^3/uL (1.0-4.8) Monocytes # (Auto) 0.9 x10^3/uL (0.0-1.1) 1.1 x10^3/uL (0.0-1.1) Eosinophils # (Auto) 0.3 x10^3/uL (0.0-0.7) 0.2 x10^3/uL (0.0-0.7) Basophils # (Auto) 0.0 x10^3/uL (0.0-0.2) 0.0 x10^3/uL (0.0-0.2) Sodium Level 139 mmol/L (136-145) 140 mmol/L (136-145) Potassium Level 3.7 mmol/L (3.5-5.1) 3.8 mmol/L (3.5-5.1) Chloride Level 100 mmol/L (98-107) 101 mmol/L (98-107) Carbon Dioxide Level 33 mmol/L (21-32) 35 mmol/L (21-32) Anion Gap 6 (6-14) 4 (6-14) Blood Urea Nitrogen 24 mg/dL (7-20) 19 mg/dL (7-20) Creatinine 1.0 mg/dL (0.6-1.0) 0.9 mg/dL (0.6-1.0) Estimated GFR (Cockcroft-Gault) 53.0 59.8 Glucose Level 80 mg/dL (70-99) 95 mg/dL (70-99) Calcium Level 8.5 mg/dL (8.5-10.1) 8.6 mg/dL (8.5-10.1) Laboratory Tests Test 12/10/18 04:43 White Blood Count 7.1 x10^3/uL (4.0-11.0) Red Blood Count 3.57 x10^6/uL (3.50-5.40) Hemoglobin 10.9 g/dL (12.0-15.5) Hematocrit 33.4 % (36.0-47.0) Mean Corpuscular Volume 94 fL (79-100) Mean Corpuscular Hemoglobin 31 pg (25-35) Mean Corpuscular Hemoglobin Concent 33 g/dL (31-37) Red Cell Distribution Width 14.0 % (11.5-14.5) Platelet Count 146 x10^3/uL (140-400) Neutrophils (%) (Auto) 57 % (31-73) Lymphocytes (%) (Auto) 24 % (24-48) Monocytes (%) (Auto) 15 % (0-9) Eosinophils (%) (Auto) 3 % (0-3) Basophils (%) (Auto) 1 % (0-3) Neutrophils # (Auto) 4.1 x10^3uL (1.8-7.7) Lymphocytes # (Auto) 1.7 x10^3/uL (1.0-4.8) Monocytes # (Auto) 1.1 x10^3/uL (0.0-1.1) Eosinophils # (Auto) 0.2 x10^3/uL (0.0-0.7) Basophils # (Auto) 0.0 x10^3/uL (0.0-0.2) Sodium Level 140 mmol/L (136-145) Potassium Level 3.8 mmol/L (3.5-5.1) Chloride Level 101 mmol/L (98-107) Carbon Dioxide Level 35 mmol/L (21-32) Anion Gap 4 (6-14) Blood Urea Nitrogen 19 mg/dL (7-20) Creatinine 0.9 mg/dL (0.6-1.0) Estimated GFR (Cockcroft-Gault) 59.8 Glucose Level 95 mg/dL (70-99) Calcium Level 8.6 mg/dL (8.5-10.1) Microbiology 12/04/18 Urine Culture - Final, Complete 12/04/18 Urine Culture Result 1 (LAURA) - Final, Complete 12/04/18 Antimicrobic Susceptibility - Final, Complete Medications Current Medications Fentanyl Citrate (Fentanyl 2ml Vial) 50 mcg 1X ONCE IV Last administered on 21:01; Start 12/04/18 at 20:45; Stop 12/04/18 at 20:46; Status DC Morphine Sulfate (Morphine Sulfate) 5 mg 1X ONCE IV Last administered on 22:49; Start 12/04/18 at 22:30; Stop 12/04/18 at 22:31; Status DC Ondansetron HCl (Zofran) 4 mg PRN Q8HRS PRN IV NAUSEA/VOMITING Last administered on 12/05/18 21:28; Start 12/05/18 at 03:00; Stop 12/06/18 at 02:59 ; Status DC Morphine Sulfate (Morphine Sulfate) 2 mg PRN Q2HR PRN IV PAIN Last administered on 12/05/18 08:24; Start 12/05/18 at 03:00; Stop 12/06/18 at 02:59 ; Status DC Acetaminophen (Tylenol) 650 mg PRN Q4HRS PRN PO FEVER; Start 12/05/18 at 03:00 ; Stop 12/06/18 at 02:59; Status DC Polymyxin/ Trimethoprim Sulfate (Polytrim) 2 drop TID OU ; Start 12/05/18 at 09: 00; Stop 12/05/18 at 15:31; Status DC Albuterol Sulfate (Ventolin Neb Soln) 2.5 mg PRN Q6HRS PRN INH SHORTNESS OF BREATH; Start 12/05/18 at 12:30 Amlodipine Besylate (Norvasc) 5 mg DAILY PO Last administered on 12/08/18at 11: 04; Start 12/05/18 at 13:00 Aspirin (Ecotrin) 81 mg DAILY PO Last administered on 12/10/18 08:55; Start at 13:00 Carvedilol (Coreg) 12.5 mg BIDWMEALS PO Last administered on 12/10/18 08:59; Start 12/05/18 at 17:00 Furosemide (Lasix) 20 mg DAILY PO Last administered on 12/10/18 08:57; Start 12/05/18 at 13:00 Levothyroxine Sodium (Synthroid) 88 mcg DAILY06 PO Last administered on 05:59; Start 12/05/18 at 13:00 Lisinopril (Prinivil) 10 mg DAILY PO Last administered on 12/08/18 11:06; Start 12/05/18 at 13:00 Potassium Chloride (Klor-Con) 10 meq DAILY PO Last administered on 12/10/18 08 :56; Start 12/05/18 at 13:00 Citalopram Hydrobromide (CeleXA) 40 mg DAILY PO Last administered on 12/10/18 08:57; Start 12/05/18 at 13:00 Non-Formulary Medication (Fluticasone/ Umeclidin/ Vilanter (Trelegy Ellipta 100- 62.5-25)) 1 each PRN PRN IH SHORTNESS OF BREATH; Start 12/05/18 at 12:30; Status UNV Famotidine (Pepcid) 40 mg QHS PO Last administered on 12/09/18 21:06; Start at 21:00 Simvastatin (Zocor) 20 mg HS PO Last administered on 12/09/18 21:06; Start 08/13 at 21:00 Prochlorperazine (Compazine) 25 mg PRN Q12HR PRN [place] NAUSEA/VOMITING Last administered on 12/05/18 16:53; Start 12/05/18 at 16:30 Acetaminophen (Tylenol) 650 mg PRN Q4HRS PRN PO FEVER, HEADACHE Last administered on 12/10/18 08:58; Start 12/06/18 at 08:00 Acetaminophen/ Hydrocodone Bitart (Lortab 5/325) 1 tab PRN Q4HRS PRN PO PAIN Last administered on 12/07/18 22:34; Start 12/06/18 at 17:30 Lidocaine/Sodium Bicarbonate (Buffered Lidocaine 1%) 3 ml STK-MED ONCE .ROUTE ; Start 12/07/18 at 13:36; Stop 12/07/18 at 13:37; Status DC Iohexol (Omnipaque 240 Mg/ml) 50 ml STK-MED ONCE .ROUTE ; Start 12/07/18 at 13: 36; Stop 12/07/18 at 13:37; Status DC Cefazolin Sodium 50 ml @ As Directed STK-MED ONCE IV ; Start 12/07/18 at 13:44; Stop 12/07/18 at 13:45; Status DC Midazolam HCl (Versed) 2 mg STK-MED ONCE .ROUTE ; Start 12/07/18 at 13:44; Stop 12/07/18 at 13:45; Status DC Fentanyl Citrate (Fentanyl 2ml Vial) 100 mcg STK-MED ONCE .ROUTE ; Start at 13:44; Stop 12/07/18 at 13:45; Status DC Lidocaine/Sodium Bicarbonate (Buffered Lidocaine 1%) 3 ml STK-MED ONCE .ROUTE ; Start 12/07/18 at 13:57; Stop 12/07/18 at 13:58; Status DC Iohexol (Omnipaque 240 Mg/ml) 50 ml STK-MED ONCE .ROUTE ; Start 12/07/18 at 13: 57; Stop 12/07/18 at 13:58; Status DC Lidocaine/Sodium Bicarbonate (Buffered Lidocaine 1%) 12 ml 1X ONCE IJ Last administered on 12/07/18at 14:30; Start 12/07/18 at 14:30; Stop 12/07/18 at 14:31 ; Status DC Midazolam HCl (Versed) 2 mg 1X ONCE IV Last administered on 12/07/18at 14:30; Start 12/07/18 at 14:30; Stop 12/07/18 at 14:31; Status DC Fentanyl Citrate (Fentanyl 2ml Vial) 100 mcg 1X ONCE IV Last administered on at 14:30; Start 12/07/18 at 14:30; Stop 12/07/18 at 14:31; Status DC Iohexol (Omnipaque 300 Mg/ml) 50 ml 1X ONCE IART Last administered on at 14:30; Start 12/07/18 at 14:30; Stop 12/07/18 at 14:31; Status DC Info (CONTRAST GIVEN -- Rx MONITORING) 1 each PRN DAILY PRN MC SEE COMMENTS; Start 12/07/18 at 14:45; Stop 12/09/18 at 14:44; Status DC Magnesium Hydroxide (Milk Of Magnesia) 2,400 mg PRN DAILY PRN PO CONSTIPATION Last administered on 12/10/18at 09:00; Start 12/09/18 at 10:45 Ciprofloxacin (Cipro) 250 mg Q12H PO Last administered on 12/10/18at 02:34; Start 12/09/18 at 15:00 Active Scripts Active Cipro (Ciprofloxacin Hcl) 250 Mg Tablet 1 Tab PO BID 10 Days Amlodipine Besylate 5 Mg Tablet 5 Mg PO DAILY 30 Days Reported Proair Hfa (Albuterol Sulfate) 8.5 Gm Hfa.aer.ad 1 Puff INH PRN Q6HRS PRN Trelegy Ellipta 100-62.5-25 (Fluticasone/Umeclidin/Vilanter) 1 Each Blst.w.dev 1 Each IH PRN PRN Potassium Chloride 10 Meq Tab.sr.24h 10 Meq PO DAILY Lasix (Furosemide) 20 Mg Tablet 1 Tab PO DAILY Levothyroxine Sodium 88 Mcg Tablet 1 Tab PO DAILY Ranitidine Hcl 300 Mg Tablet 300 Mg PO DAILY Aspir 81 (Aspirin) 81 Mg Tablet.dr 1 Tab PO DAILY Escitalopram Oxalate 20 Mg Tablet 1 Tab PO DAILY Simvastatin 20 Mg Tablet 1 Tab PO QHS Carvedilol (Carvedilol) 12.5 Mg Tablet 1 Tab PO BID Lisinopril 10 Mg Tablet 1 Tab PO DAILY Vitals/I & O Vital Sign - Last 24 Hours 12/09/18 12/09/18 12/09/18 12/09/18 15:00 17:35 19:00 20:00 Temp 99.1 98.1 99.1 98.1 Pulse 75 75 67 Resp 16 18 B/P (MAP) 129/57 (81) 129/57 111/50 (70) Pulse Ox 98 97 O2 Delivery Nasal Cannula Nasal Cannula Nasal Cannula O2 Flow Rate 3.0 3.0 3.0 12/09/18 12/10/18 12/10/18 12/10/18 23:00 03:00 07:00 07:35 Temp 98.0 97.4 98.1 98.0 97.4 98.1 Pulse 68 66 70 Resp 18 18 18 B/P (MAP) 115/46 (69) 127/52 (77) 129/54 (79) Pulse Ox 96 98 99 O2 Delivery Nasal Cannula Nasal Cannula Nasal Cannula Nasal Cannula O2 Flow Rate 3.0 3.0 3.0 3.0 12/10/18 12/10/18 08:59 08:59 Pulse 70 70 B/P (MAP) 129/54 129/54 Intake and Output 12/09/18 12/09/1812/10/19 14:59 22:59 06:59 Intake Total 90 ml 290 ml 100 ml Balance 90 ml 290 ml 100 ml LIZ CASTILLO III DO Dec 10, 2018 11:17
--- NOTE | 2018-12-10 11:30 | NUR ---
Pt discharged to [facility] by w/c transport. Report given to RINKU Rodriguez after Pt departed. It was this nurse's fault that [facility] did not receive a call prior to Pt's discharge as there were circumstances related to my other Patients that did not allow me to give prompt report. During report, this nurse was informed that there was not an outside of the hospital DNR form in the discharge packet. This nurse has paged Dr Henry to obtain his signature and then will make arrangements to have form delivered to [facility].
--- NOTE | 2018-12-10 11:43 | DS ---
DATE OF DISCHARGE: 12/10/2018 ADMISSION DIAGNOSIS: Fall with L1 compression fracture. DISCHARGE DIAGNOSIS: Status post kyphoplasty. HOSPITAL COURSE: The patient is a pleasant elderly female who fell. She suffered an L1 compression fracture. She was admitted. We did physical therapy and occupational therapy, pain meds. She was taken for a kyphoplasty. We did consult Dr. Soriano. Basically over the past few days, the patient is doing much better. We plan to discharge to skilled. It should be noted she was seen and examined this morning. Her heart tones were normal. Lungs were clear. DISPOSITION: Skilled. ACTIVITY: As tolerated. DIET: Low sodium. MEDICATIONS: Please see the MRAD. TOTAL TIME: 32 minutes. LIZ CASTILLO DO DR: YUE/efrain JOB#: [id number] / [id number]
--- NOTE | 2019-01-03 12:53 | CONS ---
DATE OF CONSULTATION: 12/05/2018 REASON FOR CONSULTATION: L1 compression fracture. HISTORY OF PRESENT ILLNESS: The patient is a pleasant 83-year-old woman who presented in the Emergency Room with moderately severe low back pain. She tripped on her oxygen tubing on the day of admission and fell back, landing on her buttocks. She noted immediate back pain. There was no loss of consciousness. There was no radiation of the pain into her lower extremities. PAST MEDICAL HISTORY: Includes CHF, COPD, hypercholesterolemia, hypertension. PAST SURGICAL HISTORY: Appendectomy, cholecystectomy, tonsillectomy, stent placement for lower extremity vascularity, ORIF right femur. PAST SURGICAL HISTORY: Appendectomy, cholecystectomy, total hip replacement. SOCIAL HISTORY: She is not to drink alcohol or use drugs. MEDICATIONS: Reviewed on the MRAD. ALLERGIES: SHE REPORTS ALLERGY TO SULFA. REVIEW OF SYSTEMS: 12-points was performed and was negative other than outlined above. PHYSICAL EXAMINATION: GENERAL: She is pleasant, in mild distress because of back pain. HEENT: She was normocephalic, atraumatic. NECK: Supple. HEART: Regular rate and rhythm. RESPIRATORY: Lungs are clear to auscultation. NEUROLOGIC: Her strength was 5/5 in upper and lower extremities bilaterally. She was intact to light touch in the upper and lower extremities bilaterally with hypoactive reflexes throughout. Examination of the thoracolumbar spine, there was tenderness in the mid and lower lumbar spine with palpation. There was no ecchymosis. LABORATORY DATA: I reviewed a CT scan of the lumbar spine. On that study, there is an acute appearing superior endplate compression fracture of L1 with mild retropulsion and without evidence of significant spinal stenosis associated with this. IMPRESSION: L1 compression fracture. RECOMMENDATIONS: She will need an LSO to support her with a brace. I would like an MRI scan of the lumbar spine performed. We will need to have Dr. Soriano involved. LUBA EDWARDS MD DR: SETH/efrain JOB#: [id number] / [id number] SOFIYA
== END 2018-12-10 11:00 | DRG 515 ==
LOC: ER 19:23 → 4 NORTH 12-05 00:54
PROVIDERS: ADMIT Internal Medicine; ATTEND Internal Medicine
PROC: 0QS03ZZ Reposition Lumbar Vertebra, Percutaneous Approach (ICD-10-PCS; principal; 2018-12-08)
PROC: 0QU03JZ Supplement Lumbar Vertebra with Synthetic Substitute, Percutaneous Approach (ICD-10-PCS; 2018-12-08)
DX: M48.56XA Collapsed vertebra, not elsewhere classified, lumbar region, initial encounter for fracture (principal); G92 Toxic encephalopathy; N39.0 Urinary tract infection, site not specified; M48.061 Spinal stenosis, lumbar region without neurogenic claudication; M47.816 Spondylosis without myelopathy or radiculopathy, lumbar region; J44.9 Chronic obstructive pulmonary disease, unspecified; I11.0 Hypertensive heart disease with heart failure; I50.9 Heart failure, unspecified; F32.9 Major depressive disorder, single episode, unspecified; F41.9 Anxiety disorder, unspecified; G47.00 Insomnia, unspecified; M51.36 Other intervertebral disc degeneration, lumbar region; B96.20 Unspecified Escherichia coli [E. coli] as the cause of diseases classified elsewhere; E05.90 Thyrotoxicosis, unspecified without thyrotoxic crisis or storm; E78.00 Pure hypercholesterolemia, unspecified; E78.5 Hyperlipidemia, unspecified; I25.10 Atherosclerotic heart disease of native coronary artery without angina pectoris; K21.9 Gastro-esophageal reflux disease without esophagitis; M51.26 Other intervertebral disc displacement, lumbar region; Z96.649 Presence of unspecified artificial hip joint; W01.0XXA Fall on same level from slipping, tripping and stumbling without subsequent striking against object, initial encounter; Y93.89 Activity, other specified; Y92.89 Other specified places as the place of occurrence of the external cause; Y99.8 Other external cause status; Z99.81 Dependence on supplemental oxygen; Z90.49 Acquired absence of other specified parts of digestive tract; Z88.2 Allergy status to sulfonamides; Z87.81 Personal history of (healed) traumatic fracture
CPT/HCPCS: 22514; 36415; 72131; 72148; 74018; 80048; 81001; 85007; 85025; 85610; 85730; 87086; 87186; 94760; 96374; 99152; 99153; C1725; J2250; J2270; J2405; J3010; Q9967; 97110; 97116; 97535; 99285-25

== ENCOUNTER → 2021-07-05 | Outpatient (CLI) | payer OTHER ==
[2019-11-11 11:00] VITALS: BP 112/43
[~2021-07-05] MED LIST changes: +ALBU2.5V8 INH; -ALEN70TA6 PO; +ALEN70TA71 PO; +AMLO-186 PO; -AMLO5TAB10 PO; +AMOX1TAB10 PO; +BENZ-8 PO; +CIPR250T30 PO; +FLUT1BLS3 IH; +GUAI5SYR PO; +LACT1CAP19 PO; +LISI10TA16 PO; -LISI10TA2 PO; -PANT40TA5 PO; +PANT40TA77 PO; +POTASSIUM CHLO10 ME1 PO; +PRED-220 PO; +SIMV10TA15 PO; -SIMV10TA3 PO; +SIMV20TA18 PO; -SIMV20TA3 PO
--- NOTE | 2021-07-05 15:22 | RAD ---
Examination: CT chest without contrast HISTORY: History of lung nodule follow-up COMPARISON: 10/14/2019 TECHNIQUE: Axial CT images of chest were performed without contrast. Coronal and sagittal reformats a re performed Exposure: One or more of the following individualized dose reduction techniques were utilized for thi s examination: 1. Automated exposure control 2. Adjustment of the mA and/or kV according to patient size 3. Use of iterative reconstruction technique FINDINGS: The central airways are patent. Mild cardiomegaly. Coronary artery calcifications identified. Small h iatal hernia. No radiologically significant mediastinal lymphadenopathy. Severe bilateral lung emphys ematous changes. 5 mm nodule identified in the right middle lobe of the lung similar to prior exam. M ild bibasilar lung atelectasis or infiltrates. The visualized noncontrasted liver, spleen, adrenals g rossly appears unremarkable. Moderate degenerative changes thoracic spine. Moderate compression vaughn e of T12 vertebral level. Mild compression change with kyphoplasty changes of L1 vertebral body. IMPRESSION: 1. 5 mm nodule identified in the right middle lobe of the lung similar to prior exam. 2. Severe bilateral lung emphysematous changes. 3. Mild bibasilar lung atelectasis or infiltrates. Per Fleischner Society guidelines for incidentally found solid nodules measuring less than 6 mm, no f ollow-up is necessary if patient is considered at low risk for lung cancer. If patient is considered to be at high risk, such as with history of smoking, then CT follow-up in about 12 months can be cons idered. Electronically signed by: Fidel Allen MD (07/05/2021 3:20 PM) [id number]
== END ==
LOC: CT 10:36
PROVIDERS: ATTEND Internal Medicine Pulmonary Disease
DX: R91.1 Solitary pulmonary nodule (principal); J43.9 Emphysema, unspecified; J98.11 Atelectasis; I51.7 Cardiomegaly; I25.10 Atherosclerotic heart disease of native coronary artery without angina pectoris; K44.9 Diaphragmatic hernia without obstruction or gangrene; M47.814 Spondylosis without myelopathy or radiculopathy, thoracic region; Z98.890 Other specified postprocedural states
CPT/HCPCS: 71250

== ENCOUNTER → 2021-07-16 | Outpatient (CLI) | payer OTHER ==
[2019-11-11 11:00] VITALS: BP 112/43
[~2021-07-16] MED LIST changes: +ALBUTEROL SULFATE 2.5 MG/3 ML NEBU. NEB ONE
--- NOTE | 2021-07-16 15:12 | RESP ---
DATE OF SERVICE: 07/16/2021 ATTENDING PHYSICIAN: Tati Whitfield MD The patient underwent full pulmonary function testing with lung volumes. FEV1/FVC ratio is 40%. FEV1 was 370 mL of 64% of predicted. FVC was 1.58 or 68% of predicted. The patient improved her FEV1 to 0.67 with 4% bronchodilator change. Vital capacity was 66% of predicted. Diffusion capacity was decreased. IMPRESSION: 1. Severe airflow limitation. 2. No significant bronchodilator response. 3. Decreased vital capacity. 4. Decreased diffusion capacity compatible with emphysema. NAVEED DR: Jagdish TID: [id number]
== END ==
LOC: PF 09:32
PROVIDERS: ATTEND Internal Medicine Pulmonary Disease
DX: R91.1 Solitary pulmonary nodule (principal)
CPT/HCPCS: 94060; 94640; 94729; J7613